=== PATIENT | male | born 1950 | race Caucasian/White ===

== ENCOUNTER 2024-05-24 16:57 | Emergency (ER) | payer MEDICARE, OTHER, SELFPAY ==
[2024-05-24 17:01] VITALS: BP 131/80
[2024-05-24 17:20] VITALS: BP 109/68
[2024-05-24 17:47] LABS: % Basophils 0.4 % (0-2); % Eosinophils 0.2 % (0-6); % Immature Granulocytes 0.7 % (0-0.5); % Lymphocytes 30.9 % (20.5-51.1); % Monocytes 5.5 % (1.7-9.3); % Neutrophils 62.3 % (42.2-75.2); Absolute Lymphocytes 1.7 10^3/uL (1.2-3.4); Absolute Monocytes 0.3 10^3/uL (0.1-0.6); Absolute Neutrophils 3.5 10^3/uL (1.4-6.5); Hematocrit 40.4 % (39.0-52.0); Hemoglobin 14.3 g/dL (13.0-18.0); Mean Corp Hgb Conc. 35.4 g/dL (33.0-37.0); Mean Corpuscular Hgb 37.1 pg (27.0-31.0); Mean Corpuscular Volume 104.9 fL (80.0-94.0); Nucleated Red Blood Cells % 0 % (-); Red Blood Cell Count 3.85 10^6/uL (4.70-6.10); Red Cell Dist. Width 13.2 % (11.5-14.5); White Blood Cell Count 5.6 10^3/uL (4.8-10.8)
[2024-05-24 17:54] LABS: ALT (SGPT) 44 U/L (0-50); AST (SGOT) 46 U/L (17-59); Alkaline Phosphatase 91 U/L (38-126); Blood Urea Nitrogen 15 mg/dl (9-20); Calcium 9.4 mg/dl (8.4-10.2); Carbon Dioxide 25 mmol/L (22-30); Chloride 104 mmol/L (98-107); Glucose 125 mg/dl (70-99); Potassium 4.3 mmol/L (3.5-5.1); Sodium 137 mmol/L (135-145); Total Bilirubin 0.6 mg/dl (0.2-1.3); Total Protein 6.9 g/dl (6.3-8.2); eGFR > 60.00
[2024-05-24 17:59] LABS: D-Dimer 0.67 ug/mlFEU (0.00-0.50)
[2024-05-24 18:17] LABS: COVID-19 Antigen Negative (Negative)
--- NOTE | 2024-05-24 18:21 | ED.GENMED ---
History of Present Illness
General
Chief Complaint: Breathing Problem
Time Seen by Provider: 05/24/24 17:17
History of Present Illness
History of Present Illness:
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 Patient reports that this morning. Notes mild dry cough. [place] known sick contacts. Denies fever. Denies associated chest pain. Denies abdominal pain or vomiting. Denies lower extremity swelling. Reports that he sometimes has dyspnea from time
to time, however not to this extent. He touch base with his doctors at [facility], who he follows for his AML, that he come to the hospital for further evaluation. Denies additional acute medical complaints
Past History
Past History
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
ED Past Surgical History: Orthopedic (Right knee surgery, bilateral rotator cuff repair), Tonsilectomy and Other (Cataract left)
Social History
Tobacco: Non-smoker
Alcohol: None
Drug: None
Living: with family
Phy Exam
Physical Exam
Physical Exam:
General: Well-appearing, no clinical signs of dehydration, nontoxic and in no acute distress
HEENT: protecting airway
Neck: appears supple
CV: Normal heart rate, regular rhythm, no evidence of cyanosis
Resp: No accessory muscle use, no increased work of breathing, lungs clear to auscultation bilaterally
Abd: Soft and non-distended, no tenderness to palpation, normal bowel sounds
Extremities: No deformities, no swelling, no erythema, pulses and sensation intact
Neuro: alert, no focal neurologic deficit
: deferred
Rectal: deferred
Psych: Normal affect
Skin: Intact
Scores
Heart Failure Risk
Heart Failure Risk Score: Not Applicable
Course
Orders/Labs/Results
Orders:
Orders
05/24/24 17:03
EKG [Electrocardiogram (*1)] Urgent
Reason for Study: Shortness of Breath
EKG- Treatment ONCE
05/24/24 17:23
CBC/With Diff [Complete Blood Count/With Diff] Urgent
CMP [Comprehensive Metabolic Panel] Urgent
05/24/24 17:39
COVID-19 Antigen Urgent
Source: Nasal Swab
D-Dimer Urgent
05/24/24 18:21
CT Chest Pe Study Urgent
Comment:
Reason For Exam: dyspnea, positive dimer
Abnormal Lab Results
05/24/24 05/24/24
17:23 17:39
RBC 3.85 L 10^6/uL
(4.70-6.10)
MCV 104.9 H fL
(80.0-94.0)
MCH 37.1 H pg
(27.0-31.0)
Plt Count 68 L 10^3/uL
(130-400)
MPV 10.9 H fL
(7.4-10.4)
Immature Gran % 0.7 H %
(0-0.5)
D-Dimer 0.67 H ug/mlFEU
(0.00-0.50)
Creatinine 0.6 L mg/dL
(0.7-1.3)
Glucose 125 H mg/dl
(70-99)
05/24/24 17:23
05/24/24 17:23
Vital Signs
Initial and Last Documented VS:
Initial Vital Signs
Temp Pulse Resp BP Pulse Ox
97.5 F 86 18 131/80 96
05/24/24 17:01 05/24/24 17:01 05/24/24 17:01 05/24/24 17:01 05/24/24 17:01
Last Documented Vital Signs
Temp Pulse Resp BP Pulse Ox
97.5 F 83 17 109/68 94
05/24/24 17:01 05/24/24 17:20 05/24/24 17:20 05/24/24 17:20 05/24/24 17:20
MDM/Problems Addressed
MDM/Problems Addressed:
74-year-old male with history of AML status post bone marrow transplant 04/2023 presenting for shortness of breath. Vital signs are normal.
On exam, patient well-appearing, no acute distress or discomfort. Benign cardiac and pulmonary exam. No focal abnormal lung sounds. No increased work of breathing. Unclear etiology to patient's symptoms, possible viral syndrome, notes that [place] Will test for COVID. Given patient's complicated history, will also screen with laboratory analysis and obtain chest x-ray imaging. Will also obtain a D-dimer, however no present hypoxia or tachycardia. EKG
nonischemic, patient without chest pain, without concern for ACS at this time.
20:45 -patient's labs are unremarkable. Slight elevation of D-dimer. CT chest was subsequently obtained, no evidence of PE, possible bronchitis. Patient is already on daily steroids which she just increased today. He is also on inhalers at home.
No signs of pneumonia. There is also evidence of chronic lung changes. Ambulatory pulse ox within normal limits. At this time suspect viral syndrome. Ultimately feel stable for discharge with continued outpatient follow-up. Strict return
precautions communicated and patient verbalized understanding
*EKG
Interpreted by ED Provider?: Yes
EKG Intrepretation Date: 05/24/24
EKG Intrepretation Time: 18:26
Interpretation: normal
Comparison EKG: no changes
Heart Rate: 83
Rate: normal
[place]: normal axis
Interval: normal interval
QRS Pattern: normal QRS
Ischemia: no ischemia
*Critical Care Note
Total Time (30-74mins, 75-104mins- exclusive of procedures): Not Applicable
ED Attending Note
-
Portions of this chart may have been created with voice recognition software.� Occasional wrong word or��sound alike� substitutions may have occurred due to the inherent limitations of voice recognition software.
Discharge Plan
Departure
Patient Disposition: Home (Routine Discharge)
Date of Disposition: 05/24/24
Time of Disposition: 20:50
Patient with high blood pressure during this ER visit?: No
Condition: Good
Discharge Problem:
Acute dyspnea, Bronchitis
Instructions: Acute bronchitis, Upper Respiratory Infection ED
Prescriptions:
No Action
multivitamin Tablet
1 tab PO DAILY@1000
acyclovir 800 mg tablet
800 mg PO BID@1000,2200
famotidine [Pepcid] 20 mg Tablet
20 mg PO DAILY@1000 Qty: 0
cyanocobalamin (vitamin B-12) [Vitamin B-12] 1,000 mcg Tablet
1,000 mcg PO HS
tamsulosin 0.4 mg capsule
0.4 mg PO HS
pravastatin 20 mg tablet
20 mg PO HS
pregabalin 100 mg capsule
200 mg PO BID@1000,2200
cholecalciferol (vitamin D3) [Vitamin D3] 25 mcg (1,000 unit) Tablet
25 mcg PO DAILY@1000
Xospata 40 mg Tablet
80 mg PO DAILY@1000
hydrocortisone 1 % Cream
1 applic TOPICAL DAILY
Rx Instructions:
apply to face
diclofenac sodium 1 % Gel
2 g TOPICAL QIDPRN PRN (Reason: hip pain)
DAPTOmycin [Cubicin] 1000 MG
Syringe [Syringe-Pump] 0 ML
As Directed mls/hr IV DAILY@1200
Ordered By: Concha Méndez MD, Resident
Last Taken: Unknown
Referrals:
Jama Falcon MD [Family Provider] -
Activity Restrictions/Additional Instructions:
You were seen in the emergency department for shortness of breath
You were found to have bronchitis
Please follow-up closely with your primary care physician.
Return to the emergency department for any worsening of your symptoms, or any development of chest pain, difficulty breathing, abdominal pain with persistent vomiting and inability to tolerate food or liquid by mouth (concern for dehydration),
weakness, headache or confusion, fever greater than 100.4, or any additional symptoms that are concerning to you.
Thank you for choosing [facility].
Interventions
Interventions:
*Risk Screen - Suicide Last Done: 05/24/24 21:21
*General Assessment Last Done: 05/24/24 21:21
*Neglect/Abuse Screening Last Done: 05/24/24 21:21
*Nursing Disposition Last Done: 05/24/24 21:23
ED- Cardiac Assessment Last Done: 05/24/24 21:21
ED- Pulmonary Assessment Last Done: 05/24/24 21:21
Discharge Date and Time
Discharge Date/Time: 05/24/24 21:24
Print Language: PORTUGUESE
[2024-05-24 18:32] LABS: Mean Platelet Volume 10.9 fL (7.4-10.4); Platelet Count 68 10^3/uL (130-400)
== END 2024-05-24 21:24 | disposition home or self-care (01) ==
LOC: EMR 16:57
PROVIDERS: EMERGENCY PHYSICIAN Student in an Organized Health Care Education/Training Program; FAMILY PHYSICIAN Family Medicine
DX: R06.00 Dyspnea, unspecified (principal); J40 Bronchitis, not specified as acute or chronic; I10 Essential (primary) hypertension; E78.00 Pure hypercholesterolemia, unspecified; C92.00 Acute myeloblastic leukemia, not having achieved remission; Z79.52 Long term (current) use of systemic steroids; Z94.81 Bone marrow transplant status
CPT/HCPCS: 99284; 71275; 80053; 85025; 85379; 87811; 93005; Q9967

== ENCOUNTER 2024-07-01 18:04 | Inpatient (IN) | payer MEDICARE, OTHER, SELFPAY ==
[2024-07-01 11:05] VITALS: BP 137/84
[2024-07-01 11:06] VITALS: BP 137/84
[2024-07-01 11:07] VITALS: BMI 37.7
--- NOTE | 2024-07-01 11:09 | ED.GENMED ---
History of Present Illness
General
Chief Complaint: Breathing Problem
Source: patient
Exam Limitations: none
Time Seen by Provider: 07/01/24 11:02
Nursing documentation reviewed up to this point in time: agreed with
History of Present Illness
History of Present Illness:
74-year-old male with past medical history of AML currently on Xospata, previous bone marrow transplant last year, anemia lung disease presenting to the emergency department today with concerns of worsening shortness of breath over the past few
days. Previously was able to walk moderate distances but now gets short of breath with any even small amount of movements and small amounts of exercise. He does not use oxygen at home denies chest pain nausea vomiting recent fevers has had some
coughing.
Past History
Past History
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
ED Past Surgical History: Orthopedic (Right knee surgery, bilateral rotator cuff repair), Tonsilectomy and Other (Cataract left)
Social History
Tobacco: Non-smoker
Alcohol: None
Drug: None
Living: with family
Review of Systems
Review of Systems
Allergies reviewed?: Yes
All Other Systems: ROS reviewed and negative except as documented in HPI and ROS
Phy Exam
Physical Exam
Physical Exam:
GENERAL: Alert , in no apparent distress
EYE: pupils equal and reactive
NECK: Supple, no significant adenopathy.
ENT: o/p clr, mmm.
CARDIAC: Regular rate and rhythm .
LUNGS: Clear breath sounds bilaterally, no acute respiratory distress, no wheezes/rales/rhonchi
ABDOMEN: Soft, without focal tenderness, no r/g, no cvat
NEUROLOGICAL: Alert and oriented, no focal neuro deficits
SKIN: Warm and dry, skin intact.
MUSCULOSKELETAL: No edema, well perfused.
PSYCH: Normal and appropriate interaction.
Scores
Heart Failure Risk
Heart Failure Risk Score: Not Applicable
Course
Orders/Labs/Results
Orders:
Orders
07/01/24 11:06
Electrocardiogram (*1) Urgent
Reason for Study: Other
Other Reason for Exam: Respiratory Distress
Cardiac Monitoring- Treatment ONCE
EKG- Treatment ONCE
IV Insert/Care/Rem.- Treatment PRN
O2 Therapy [RESP] Urgent
Titrate/Wean O2 to maintain O2 sat greater than (%): 93
Special Instructions: TO MAINTAIN CONTINUOUS O2 SATS >/= 93%
Pulse Ox/cont/shift [RESP] Urgent
Quantity: 1
Special Instructions: continuous pulse ox
07/01/24 11:09
Cardiac Monitoring- Treatment ONCE
07/01/24 11:10
CT Chest Pe Study Urgent
Comment:
Reason For Exam: sob
07/01/24 11:15
Complete Blood Count/With Diff Urgent
Comprehensive Metabolic Panel Urgent
Lactic Acid Q4H
Comment: CANCEL 2nd LACTIC ACID IF 1st LACTIC ACID IS LESS THAN 2
NT-proBNP Urgent
Troponin I Urgent
07/01/24 14:24
Azithromycin 500 mg/250 ml [Zithromax Infusion] 500 mg in 250 ml IV NOW
CefTRIAXone [Rocephin] 2,000 mg IV NOW STA
07/01/24 14:27
Dexamethasone Sod Phosphate [Decadron] 10 mg IV NOW STA
07/01/24 14:29
COVID-19 Antigen Urgent
Source: Nasal Swab
Abnormal Lab Results
07/01/24
11:15
RBC 4.22 L 10^6/uL
(4.70-6.10)
MCV 107.6 H fL
(80.0-94.0)
MCH 37.2 H pg
(27.0-31.0)
Plt Count 52 L 10^3/uL
(130-400)
MPV 10.7 H fL
(7.4-10.4)
Abs Immat Gran (auto) 0.1 H 10^3/uL
(0-0.05)
Absolute Monos (auto) 1.4 H 10^3/uL
(0.1-0.6)
Immature Gran % 0.8 H %
(0-0.5)
Monocytes % 14.7 H %
(1.7-9.3)
Carbon Dioxide 31 H mmol/L
(22-30)
Glucose 136 H mg/dl
(70-99)
Total Bilirubin 1.4 H mg/dl
(0.2-1.3)
ALT 95 H U/L
(0-50)
Troponin I 0.047 H* ng/ml
07/01/24 11:15
07/01/24 11:15
Vital Signs
Initial and Last Documented VS:
Initial Vital Signs
Pulse Ox
92
07/01/24 11:04
Last Documented Vital Signs
Temp Pulse Resp BP Pulse Ox
98.8 F 99 28 124/84 97
07/01/24 11:06 07/01/24 13:30 07/01/24 13:30 07/01/24 12:44 07/01/24 13:30
MDM/Problems Addressed
MDM/Problems Addressed:
74-year-old male presenting to the emergency department today with concerns of shortness of breath worsening over the past few days. Very minimal exercise tolerance at this point. Pulse ox at home was in the 80s when EMS arrived. He does not use
oxygen at baseline. Upon arrival here he was tachycardic pulse ox in the low 90s with 2 L nasal cannula. Labs showing elevated troponin level of 0.047. EKG without obvious ischemic changes or arrhythmia. CT scan showing potential pneumonitis
infectious versus drug-related most likely. Patient started on antibiotics and otherwise will be admitted consider hypoxia and decreased exercise tolerance here.
*Critical Care Note
Total Time (30-74mins, 75-104mins- exclusive of procedures): Not Applicable
ED Attending Note
-
Portions of this chart may have been created with voice recognition software.� Occasional wrong word or��sound alike� substitutions may have occurred due to the inherent limitations of voice recognition software.
Discharge Plan
Departure
Patient Disposition: Admit
Date of Disposition: 07/01/24
Time of Disposition: 14:53
Admit to: Telemetry
Admit to doctor: Marina montes
Presentation/result/management discussed w/ accepting MD/DO: Hospitalist
Patient with high blood pressure during this ER visit?: No
Condition: Good
Covid-19: Not Applicable
Discharge Problem:
Hypoxia, Pneumonitis, Elevated troponin
Prescriptions:
No Action
multivitamin Tablet
1 tab PO DAILY@1000
acyclovir 800 mg tablet
800 mg PO BID@1000,2200
famotidine [Pepcid] 20 mg Tablet
20 mg PO DAILY@1000 Qty: 0
cyanocobalamin (vitamin B-12) [Vitamin B-12] 1,000 mcg Tablet
1,000 mcg PO HS
tamsulosin 0.4 mg capsule
0.4 mg PO HS
pravastatin 20 mg tablet
20 mg PO HS
pregabalin 100 mg capsule
200 mg PO BID@1000,2200
cholecalciferol (vitamin D3) [Vitamin D3] 25 mcg (1,000 unit) Tablet
25 mcg PO DAILY@1000
Xospata 40 mg Tablet
80 mg PO DAILY@1000
hydrocortisone 1 % Cream
1 applic TOPICAL DAILY
Rx Instructions:
apply to face
diclofenac sodium 1 % Gel
2 g TOPICAL QIDPRN PRN (Reason: hip pain)
DAPTOmycin [Cubicin] 1000 MG
Syringe [Syringe-Pump] 0 ML
As Directed mls/hr IV DAILY@1200
Ordered By: Concha Méndez MD, Resident
Last Taken: Unknown
Referrals:
UNKNOWN - PT DOES,NOT KNOW [Family Provider] -
Interventions
Interventions:
*Risk Screen - Suicide Last Done: 07/01/24 11:09
*General Assessment Last Done: 07/01/24 11:09
*Neglect/Abuse Screening Last Done: 07/01/24 11:09
ED- Fall Risk Assessment Last Done: 07/01/24 11:10
*ED COVID-19 Vaccine History Last Done: 07/01/24 11:09
ED- Cardiac Assessment Last Done: 07/01/24 11:10
ED- Pulmonary Assessment Last Done: 07/01/24 11:10
Discharge Date and Time
Print Language: ALBANIAN
[2024-07-01 11:42] LABS: Lactic Acid 1.3 mmol/L (0.7-2.0)
[2024-07-01 11:43] LABS: ALT (SGPT) 95 U/L (0-50); AST (SGOT) 47 U/L (17-59); Albumin 4.4 g/dl (3.5-5.0); Alkaline Phosphatase 114 U/L (38-126); Blood Urea Nitrogen 19 mg/dl (9-20); Calcium 9.8 mg/dl (8.4-10.2); Carbon Dioxide 31 mmol/L (22-30); Chloride 100 mmol/L (98-107); Estimated Creatinine Clearance 78 ml/min; Glucose 136 mg/dl (70-99); Potassium 4.4 mmol/L (3.5-5.1); Sodium 142 mmol/L (135-145); Total Bilirubin 1.4 mg/dl (0.2-1.3); Total Protein 7.2 g/dl (6.3-8.2); eGFR > 60.00
[2024-07-01 11:47] LABS: % Basophils 0.4 % (0-2); % Eosinophils 0.8 % (0-6); % Immature Granulocytes 0.8 % (0-0.5); % Lymphocytes 23.7 % (20.5-51.1); % Monocytes 14.7 % (1.7-9.3); % Neutrophils 59.6 % (42.2-75.2); Absolute Eosinophils 0.1 10^3/uL (0-0.7); Absolute Immature Granulocytes 0.1 10^3/uL (0-0.05); Absolute Lymphocytes 2.2 10^3/uL (1.2-3.4); Absolute Monocytes 1.4 10^3/uL (0.1-0.6); Absolute Neutrophils 5.6 10^3/uL (1.4-6.5); Hematocrit 45.4 % (39.0-52.0); Hemoglobin 15.7 g/dL (13.0-18.0); Mean Corp Hgb Conc. 34.6 g/dL (33.0-37.0); Mean Corpuscular Hgb 37.2 pg (27.0-31.0); Mean Corpuscular Volume 107.6 fL (80.0-94.0); Mean Platelet Volume 10.7 fL (7.4-10.4); Nucleated Red Blood Cells % 0 % (-); Platelet Count 52 10^3/uL (130-400); Red Blood Cell Count 4.22 10^6/uL (4.70-6.10); Red Cell Dist. Width 13.7 % (11.5-14.5); White Blood Cell Count 9.3 10^3/uL (4.8-10.8)
[2024-07-01 11:58] LABS: NT-proBNP 407 pg/ml; Troponin I 0.047 ng/ml
[2024-07-01 12:32] VITALS: BP 106/78
[2024-07-01 12:44] VITALS: BP 124/84
[2024-07-01] MEDS: DECADRON 10 MG IV (14:35)
[2024-07-01] MEDS: ROCEPHIN 2000 MG IV (14:35)
[2024-07-01] MEDS: ZITHROMAX INFUSION 250 IV (14:35)
[2024-07-01 15:18] LABS: COVID-19 Antigen Negative (Negative)
--- NOTE | 2024-07-01 15:41 | HPS.HSE ---
Family Physician
-
Family Physician: NOT KNOW UNKNOWN - PT DOES
Chief Complaint
-
sob
History of Present Illness
74 male AML status post bone marrow transplant chronic qrixt-[id number]-[id number] disease hypertension hyperlipidemia asbestosis presents with shortness of breath progressive for the past few days. Denies fevers chills nausea vomiting constipation had an
episode of diarrhea few days ago since resolved. Reports productive cough denies hemoptysis. ED eval notable for hypoxia requiring 3 L tachypnea sinus tachycardia. Blood pressure stable no lactic acidosis. CT chest suggestive of pneumonitis
known asbestosis coronary artery calcifications. Negative for PE. History of thrombocytopenia platelets stable appears baseline. Troponin elevated 0.047 chest pain-free. BNP unremarkable. Denies orthopnea, reports lying flat actually helps
symptoms.
Medical History
Past Medical History
Past Medical History: Reports Other (as above)
Past Surgical History: Reports Other (as above)
Social History
Tobacco: Non-smoker
Alcohol: None
Drug: None
Personal:
Living: With Family
Employment: Retired
Family History
Family History: Not pertinent (reviewed)
Allergies / Home Medications
Allergies reflects when Allergies were last updated in [employer].
Home Medications with original date entered in [employer]
Allergy/Medication List:
Allergies
Allergy/AdvReac Type Severity Reaction Status Date / Time
No Known Allergies Allergy Verified 07/01/24 11:13
Home Medications
acyclovir 800 mg tablet 800 mg PO BID@1000,2200 prophylaxis 11/17/22
famotidine 20 mg tablet (Pepcid) 20 mg PO BID Gastrointestinal issue ##0 11/17/22
multivitamin 1 tab PO DAILY@1000 Supplement 11/17/22
cholecalciferol (vitamin D3) 25 mcg (1,000 unit) tablet (Vitamin D3) 25 mcg PO DAILY@1000 Supplement 04/29/23
cyanocobalamin (vitamin B-12) 1,000 mcg tablet (Vitamin B-12) 1,000 mcg PO MOWEFR Supplement 04/29/23
pravastatin 20 mg tablet 20 mg PO HS High Cholesterol 04/29/23
tamsulosin 0.4 mg capsule 0.4 mg PO HS Urinary Issue 04/29/23
diclofenac sodium 1 % topical gel 2 g topical QIDPRN PRN hip pain 10/18/23
gilteritinib 40 mg tablet (Xospata) 80 mg PO DAILY@1000 Autoimmune Disorder 10/18/23
albuterol sulfate 90 mcg/actuation aerosol inhaler 1 puff inhalation 4-8XD 07/01/24
ascorbic acid (vitamin C) 1,000 mg tablet 1,000 mg PO HS 07/01/24
belumosudil 200 mg tablet (Rezurock) 200 mg PO DAILY 07/01/24
benzonatate 100 mg capsule 100 mg PO Q6HPRN PRN cough 07/01/24
budesonide-formoterol HFA 160 mcg-4.5 mcg/actuation aerosol inhaler 2 puff inhalation R Q12 07/01/24
erythromycin 5 mg/gram (0.5 %) eye ointment 1 applic BOTH EYES HS 07/01/24
metformin 500 mg tablet 500 mg PO BIDWMEAL 07/01/24
olopatadine 0.2 % eye drops 1 drp BOTH EYES DAILY 07/01/24
prednisone 5 mg tablet 15 mg PO HS 07/01/24
pregabalin 200 mg capsule 200 mg PO Q12H 07/01/24
ruxolitinib 5 mg tablet (Jakafi) 5 mg PO BID 07/01/24
sulfamethoxazole 800 mg-trimethoprim 160 mg tablet 1 tab PO MOWEFR 07/01/24
tacrolimus 0.1 % topical ointment 1 applic topical Q12H 07/01/24
Review of Systems
-
A 12 point ROS was completed and negative except as noted: Yes
Constitutional: Reports Sleep Disturbance (as below)
Physical Exam
Vital Signs
Vital Signs
Temp Pulse Resp BP Pulse Ox
98.8 F 109 29 124/84 96
07/01/24 11:06 07/01/24 15:30 07/01/24 15:30 07/01/24 12:44 07/01/24 15:30
Physical Exam
General: Other (as below)
Laboratory Results
-
07/01/24 11:15
07/01/24 11:15
Laboratory Results
Lactic Acid Cancelled 07/01/24 15:15
Total Bilirubin 1.4 mg/dl (0.2-1.3) H 07/01/24 11:15
AST 47 U/L (17-59) 07/01/24 11:15
ALT 95 U/L (0-50) H 07/01/24 11:15
Alkaline Phosphatase 114 U/L (38-126) 07/01/24 11:15
Troponin I 0.047 ng/ml H* 07/01/24 11:15
Impression/Plan
-
ROS
General: Denies fever chills unexpected weight loss reports sweating
Neuro: Denies seizure shaking loss of consciousness dizziness vertigo
Psych: denies depression hallucinations confusion manic episodes
Endocrine: Denies polyuria polydipsia polyphagia heat/cold intolerance
HEENT: Denies blindness visual disturbances epistaxis
Pulmonary: reports coughing sob denies hemoptysis
Cardiovascular: denies chest pain palpitations leg swelling orthopnea (reports breathing improves with lying flat)
Hematology: denies signs symptoms of anemia easy bruising/bleeding
Gastrointestinal: reports diarrhea a few days ago non-bloody denies nausea vomiting constipation hematemesis hematochezia melena
Genito-Urinary: denies retention incontinence dysuria
Musculoskeletal: denies joint pain weakness
Dermatology: denies rash laceration bruising
Physical Exam
General: No pallor, cyanosis, or jaundice. obese
HEENT: Throat clear. PERRLA Normocephalic atraumatic
NECK: Supple. No JVD Carotid Bruits
RESPIRATORY: Lungs clear to auscultation. crackles on auscultation
CVS: Sinus Tachy
ABDOMEN: Soft, non-tender. No distension. BS+/normal.
EXTREMITIES: No peripheral cyanosis or edema.
CONE TENDER: AOx3. No focal deficits.
IMPRESSION:
74 male AML status post bone marrow transplant chronic jgvxr-[id number]-yjpc disease hypertension hyperlipidemia asbestosis presents with shortness of breath progressive for the past few days. Denies fevers chills nausea vomiting constipation had an
episode of diarrhea few days ago since resolved. Reports productive cough denies hemoptysis. ED eval notable for hypoxia requiring 3 L tachypnea sinus tachycardia. Blood pressure stable no lactic acidosis. CT chest suggestive of pneumonitis
known asbestosis coronary artery calcifications. Negative for PE. History of thrombocytopenia platelets stable appears baseline. Troponin elevated 0.047 chest pain-free. BNP unremarkable. Denies orthopnea, reports lying flat actually helps
symptoms.
PLAN:
#Sepsis pneumonia versus pneumonitis
#Asbestosis/pulmonary fibrosis
Telemetry admit
Blood cultures
Sputum culture as possible
Continue ceftriaxone azithromycin
Monitor for fever
Trend WBC
Home prednisone on hold for IV steroids
Decadron 4 mg IV every 6, low-dose sliding scale while on increased steroids, follow-up A1c, continue home metformin
O2 supplementation as necessary maintain saturation 92% or above
Xopenex scheduled and as needed avoiding albuterol due to tachycardia
Continue home Symbicort
Pulm ID eval
#hx Thrombocytopenia
Baseline
Continue to monitor
#AML status post bone marrow transplant
#Qtbsu-munzwz-eyls disease
In the process of obtaining Xospata has not received yet
Continue home medication Rezurock Jakafi
Continue prophylaxis Bactrim acyclovir
DVT prophylaxis SCDs
GI prophylaxis continue home Pepcid twice daily
DNR as per patient
I spent a total of 80 minutes with the patient or on the floor. More than 50% of this time involved counseling and coordination of care.
[2024-07-01 19:49] VITALS: BP 126/83; BMI 37.2
--- NOTE | 2024-07-01 19:57 | PTCARENOTE ---
Pt arrived to floor from ED via stretcher. Ambulated into bed with minimal assistance. Pt was very dyspnea on exertion also is on 2L of oxygen. PT was recovered well after rest. PT is AAOx3, VVS , oriented pt to room call whitaker within reach.
[2024-07-01 21:37] LABS: Glucose - Point of Care 191 mg/dl (70-99)
[2024-07-01] MEDS: SYMBICORT 160/4.5 MCG INHALER INH (22:28)
[2024-07-01] MEDS: XOPENEX 0.63 MG INHALANT SOLUTION INH (22:28)
[2024-07-02] VITALS (8 sets, daily range): BP systolic 100–129; BP diastolic 77–83; PULSE 97–98; O2SAT 96–97; BMI 36.7
[2024-07-02] MEDS: MUCINEX 600 MG PO ×3 (00:16→20:42)
[2024-07-02] MEDS: PEPCID 20 MG PO ×3 (00:17→20:42)
[2024-07-02] MEDS: DECADRON 4 MG IV ×5 (00:19→21:28)
[2024-07-02] MEDS: ERYTHROMYCIN 0.5% OPHTHALMIC OINTMENT 1 APPLIC BOTH EYES ×2 (00:19→21:28)
[2024-07-02] MEDS: FLOMAX 0.4 MG PO ×2 (00:22→21:28)
[2024-07-02] MEDS: PRAVACHOL 20 MG PO ×2 (00:23→21:30)
[2024-07-02] MEDS: ZOVIRAX 800 MG PO ×3 (00:24→21:30)
[2024-07-02] MEDS: NON-FORMULARY ITEM 80 MG PO ×2 (00:25→10:15)
[2024-07-02] MEDS: NON-FORMULARY ITEM 5 MG PO ×3 (00:26→20:43)
[2024-07-02] MEDS: LYRICA 200 MG PO ×3 (00:33→20:41)
[2024-07-02] MEDS: VITAMIN C 1000 MG PO ×2 (00:34→21:29)
--- NOTE | 2024-07-02 03:42 | PTCARENOTE ---
Pt also arrived to the unit very diaphoretic and continues to be very diaphoretic throughout the night. Rectal temp was taken on arrival temp was 99.6.
--- NOTE | 2024-07-02 04:28 | PTCARENOTE ---
Pt aaox3, cooperative. denies sob or dizziness. NSR on monitor with PACs. diaphoretic. afebrile. ekg order obtained. NSR/ sinus arrhythmia. Pt states 'I feel better than when I came in.' Call whitaker within reach.
[2024-07-02 06:46] LABS: Hemoglobin 13.9 g/dL (13.0-18.0); Mean Corp Hgb Conc. 35.6 g/dL (33.0-37.0); Mean Corpuscular Hgb 37.7 pg (27.0-31.0); Mean Corpuscular Volume 105.7 fL (80.0-94.0); Mean Platelet Volume 11.3 fL (7.4-10.4); Platelet Count 49 10^3/uL (130-400); Red Blood Cell Count 3.69 10^6/uL (4.70-6.10); Red Cell Dist. Width 13.3 % (11.5-14.5); White Blood Cell Count 5.5 10^3/uL (4.8-10.8)
[2024-07-02 06:54] LABS: ALT (SGPT) 68 U/L (0-50); AST (SGOT) 37 U/L (17-59); Albumin 3.8 g/dl (3.5-5.0); Alkaline Phosphatase 93 U/L (38-126); Blood Urea Nitrogen 24 mg/dl (9-20); Calcium 9.4 mg/dl (8.4-10.2); Carbon Dioxide 24 mmol/L (22-30); Chloride 106 mmol/L (98-107); Estimated Creatinine Clearance 109 ml/min; Glucose 178 mg/dl (70-99); Magnesium 2.4 mg/dl (1.6-2.3); Potassium 4.3 mmol/L (3.5-5.1); Sodium 140 mmol/L (135-145); Total Bilirubin 0.9 mg/dl (0.2-1.3); Total Protein 6.5 g/dl (6.3-8.2); eGFR > 60.00
--- NOTE | 2024-07-02 07:35 | W.PN.HOSP.TC ---
Today's Communication/Plan
-
cont steroids
empiric abx
bronchodilators
glycemic control
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
Assessment / Plan
Assessment / Plan
Physical Exam
General: No pallor, cyanosis, or jaundice. obese
HEENT: Throat clear. PERRLA Normocephalic atraumatic
NECK: Supple. No JVD Carotid Bruits
RESPIRATORY: Lungs clear to auscultation. crackles on auscultation
CVS: Sinus Tachy
ABDOMEN: Soft, non-tender. No distension. BS+/normal.
EXTREMITIES: No peripheral cyanosis or edema.
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 No focal deficits.
IMPRESSION:
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 Denies fevers chills nausea vomiting constipation had an
episode of diarrhea few days ago since resolved. Reports productive cough denies hemoptysis. ED eval notable for hypoxia requiring 3 L tachypnea sinus tachycardia. Blood pressure stable no lactic acidosis. CT chest suggestive of pneumonitis
known asbestosis coronary artery calcifications. Negative for PE. History of thrombocytopenia platelets stable appears baseline. Troponin elevated 0.047 chest pain-free. BNP unremarkable. Denies orthopnea, reports lying flat actually helps
symptoms.
PLAN:
#Sepsis pneumonia versus pneumonitis
#Asbestosis/pulmonary fibrosis
Telemetry admit
Blood cultures
Sputum culture as possible
Continue ceftriaxone azithromycin
Monitor for fever
Trend WBC
Home prednisone on hold for IV steroids
Decadron 4 mg IV every 6
O2 supplementation as necessary maintain saturation 92% or above
Xopenex scheduled and as needed avoiding albuterol due to tachycardia
Continue home Symbicort
Pulm ID eval
DM though borderline
likely steroid induced
A1c 6.6
low dose sliding advanced to moderate anglin
cont Metformin
Troponin elevation likely non-PR related
coronary artery calcifications noted on CT
diaphoretic overnight since resolved
Troponin peaked 0.047 since trended down
ECHO preserved EF 65% no significant change from Oct 2023
Cardio eval appreciated
empiric aspirin discontinued
#hx Thrombocytopenia
Baseline
Continue to monitor
#AML status post bone marrow transplant
#Kihyx-mdalxl-vjry disease
[correction to prior documentation] cont Xospata
Continue home medication Rezurock Jakafi
Continue prophylaxis Bactrim acyclovir
DVT prophylaxis SCDs
GI prophylaxis continue home Pepcid twice daily
DNR as per patient
I spent a total of 50 minutes with the patient or on the floor. More than 50% of this time involved counseling and coordination of care.
Anticipated Discharge: 24 - 48 hours
Subjective/Interval History
-
Date of Service: July 02, 2024
No acute distress. Diaphoretic overnight since resolved. Denies Chest Pain.
Objective Data
-
Labs:
Laboratory Results
07/02/24
05:53
WBC 5.5
Hgb 13.9
Hct 39.0
Plt Count 49 L
Sodium 140
Potassium 4.3
Chloride 106
Carbon Dioxide 24
BUN 24 H
Creatinine 0.7
Glucose 178 H
Calcium 9.4
Total Bilirubin 0.9
AST 37
ALT 68 H
Alkaline Phosphatase 93
Vital Signs:
Vital Signs
Temp Pulse Resp BP Pulse Ox
97.5 F 84 18 100/77 96
07/02/24 03:36 07/02/24 03:15 07/02/24 03:15 07/02/24 03:15 07/02/24 03:15
[2024-07-02] MEDS: SYMBICORT 160/4.5 MCG INHALER 2 PUFF INH ×2 (07:48→19:41)
[2024-07-02] MEDS: XOPENEX 0.63 MG INHALANT SOLUTION INH ×3 (07:48→19:41)
[2024-07-02 09:36] LABS: Glucose - Point of Care 254 mg/dl (70-99)
[2024-07-02] MEDS: ASPIRIN 325 MG PO (09:36)
[2024-07-02] MEDS: NON-FORMULARY ITEM 200 MG PO (09:36)
[2024-07-02] MEDS: GLUCOPHAGE 500 MG PO ×2 (09:38→16:50)
[2024-07-02] MEDS: BACTRIM DS 800 MG/160 MG 1 TABLET PO (09:39)
[2024-07-02] MEDS: VITAMIN D3 (cholecalciferol) 25 MCG PO (09:39)
[2024-07-02] MEDS: ZITHROMAX 250 MG PO (09:40)
[2024-07-02] MEDS: VITAMIN B-12 1000 MCG PO (09:43)
[2024-07-02] MEDS: NOVOLOG FLEXPEN-LOW RESISTANCE 3 UNITS SC (09:58)
[2024-07-02] MEDS: THERAGRAN 1 TABLET PO (10:14)
--- NOTE | 2024-07-02 10:16 | CON.CAR ---
Addendum entered and electronically signed by Armen Wolf MD 07/02/24 14:11:
I saw and examined the patient.
The CLIENT ADMINISTRATOR or PA's note was reviewed and I agree with the note.
Comment: General: Well developed, well nourished in NAD.
Neck: Supple, no JVD, HJR, carotids +2 B/L, no bruits bilaterally.
Heart: Non displaced PMI, RRR, no murmurs, No S3, S4, no rubs.
Lungs: Scattered rhonchi
Abdomen: Normal bowel sounds, soft, non-tender, non-distended.
Extremities: No clubbing, cyanosis or edema bilaterally.
Neuro: Grossly nonfocal, awake, alert and oriented x3.
Jian has a history of hypertension, hyperlipidemia, AML status post bone marrow transplant with chronic rminv-qcbxrt-ptoh disease followed at [facility], asbestosis. He presented with worsening dyspnea on exertion and cough. He has been treated for
pneumonia and has improved. Cardiology is consulted for elevated troponin and coronary calcifications. He denies any chest pain or shortness of breath at present.
Suspect troponin elevation is nonischemic myocardial injury. Will check echocardiogram. As far as coronary calcifications that is likely a nonspecific finding at his age. Will continue statin therapy. Will check cholesterol with goal of LDL less
than 70. Will check hemoglobin A1c with elevated blood sugar. Could consider outpatient stress testing if develops chest pain or shortness of breath.
Original Note:
Consultation
Consultation Request
Date/Time Consultation Requested: 07/02/24 1830
Date/Time Consultation Performed: 07/02/24, 1020
Requesting Provider: Puneet White MD
Performing Provider: CM Lowery/Xavier Wolf MD
Reason for Consultation: troponin elevation, diaphoresis, Ca calcification, chest pain free
Medical History
-
Chief Complaint: shortness of breath
History of Present Illness:
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 On the
day of admission he was short of breath at rest with orthopnea. When he first began experiencing shortness of breath 4 days ago, he contacted his care team at [facility] and was started on Bactrim and an antifungal. He tells me the antifungal
was not available so he did not start it. Prior to 4 days ago, he was participating in PT following spinal surgery 03/30 and had been able to bike for a mile, walk 1/4 mile, and do strengthening exercising with minimal dyspnea on exertion.
He has no chest pain, palpitations, lightheadedness, syncope, edema, fevers, chills, nausea vomiting, diarrhea. c/o head feeling sweaty.
In ER troponin initially elevated but trending down: 0.047--0.040--0.030. Cardiology consulted for abnormal troponin and EKG, coronary calcification on CT scan, diaphoresis.
PMH:
AML s/p bone marrow transplant
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
HTN
hyperlipidemia
asbestosis
lumbar spine surgery 03/28/24
elevated glucose-on Metformin
thrombocytopenia
Past Medical History
Past Medical History: Other (in HPI)
Past Surgical History: Orthopedic (lumbar spine surgery 03/28/24)
Social History
Tobacco: Non-Smoker
Alcohol: None
Drug: None
Personal:
Living: With Family
Family History
Family History: Reviewed & Not Pertinent
Allergies / Home Medications
Allergy/AdvReac Type Severity Reaction Status Date / Time
No Known Allergies Allergy Verified 07/01/24 11:13
�Medication �Instructions �Recorded �Confirmed �Type
acyclovir 800 mg tablet 800 mg PO BID@1000,2200 prophylaxis 11/17/22 07/01/24 History
famotidine 20 mg tablet (Pepcid) 20 mg PO BID Gastrointestinal 11/17/22 07/01/24 History
issue ##0
multivitamin 1 tab PO DAILY@1000 Supplement 11/17/22 07/01/24 History
cholecalciferol (vitamin D3) 25 25 mcg PO DAILY@1000 Supplement 04/29/23 07/01/24 History
mcg (1,000 unit) tablet (Vitamin
D3)
cyanocobalamin (vitamin B-12) 1,000 mcg PO MOWEFR Supplement 04/29/23 07/01/24 History
1,000 mcg tablet (Vitamin B-12)
pravastatin 20 mg tablet 20 mg PO HS High Cholesterol 04/29/23 07/01/24 History
tamsulosin 0.4 mg capsule 0.4 mg PO HS Urinary Issue 04/29/23 07/01/24 History
diclofenac sodium 1 % topical gel 2 g topical QIDPRN PRN hip pain 10/18/23 07/01/24 History
gilteritinib 40 mg tablet (Xospata) 80 mg PO DAILY@1000 Autoimmune 10/18/23 07/01/24 History
Disorder
albuterol sulfate 90 mcg/actuation 1 puff inhalation 4-8XD 07/01/24 07/01/24 History
aerosol inhaler
ascorbic acid (vitamin C) 1,000 mg 1,000 mg PO HS 07/01/24 07/01/24 History
tablet
belumosudil 200 mg tablet 200 mg PO DAILY 07/01/24 07/01/24 History
(Rezurock)
benzonatate 100 mg capsule 100 mg PO Q6HPRN PRN cough 07/01/24 07/01/24 History
budesonide-formoterol HFA 160 2 puff inhalation R Q12 07/01/24 07/01/24 History
mcg-4.5 mcg/actuation aerosol
inhaler
erythromycin 5 mg/gram (0.5 %) eye 1 applic BOTH EYES HS 07/01/24 07/01/24 History
ointment
metformin 500 mg tablet 500 mg PO BIDWMEAL 07/01/24 07/01/24 History
olopatadine 0.2 % eye drops 1 drp BOTH EYES DAILY 07/01/24 07/01/24 History
prednisone 5 mg tablet 15 mg PO HS 07/01/24 07/01/24 History
pregabalin 200 mg capsule 200 mg PO Q12H 07/01/24 07/01/24 History
ruxolitinib 5 mg tablet (Jakafi) 5 mg PO BID 07/01/24 07/01/24 History
sulfamethoxazole 800 1 tab PO MOWEFR 07/01/24 07/01/24 History
mg-trimethoprim 160 mg tablet
tacrolimus 0.1 % topical ointment 1 applic topical Q12H 07/01/24 07/01/24 History
Review of Systems
-
History Source: Patient
All other systems: Negative unless noted
Physical Exam
Vital Signs
Temp Pulse Resp BP Pulse Ox
97.5 F 80 20 100/77 94
07/02/24 03:36 07/02/24 07:51 07/02/24 07:51 07/02/24 03:15 07/02/24 07:51
GEN: SOB after walking from bathroom, awake, Ox3
HEENT: supple, anicteric, no carotid bruit, no JVD
LUNGS: scattered crackles
CV: Reg, S1/S2, no murmur
ABD: soft, BS+, NT/ND
EXT: No edema
NEURO: Gross non-focal
SKIN: No rash
Lab Results
07/02/24 05:53
07/02/24 05:53
Troponin I 0.030 ng/ml 07/01/24 22:51
Buf-Y-Tkxkpaecezf Pept 407 pg/ml 07/01/24 11:15
Impression / Plan
-
PCP: [facility], old PCP retired and has not established care with new provider. Follows at [facility] for most of his medical diagnoses
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
Impression:
admitted with shortness of breath and cough 07/01/24
acute hypoxic respiratory insufficiency
possible sepsis
possible pneumonitis vs pneumonia
elevated troponin initially 0.047 and trending down
abnormal EKG
coronary calcification on chest CT
elevated glucose-on Metformin
thrombocytopenia
AML s/p bone marrow transplant
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
HTN
hyperlipidemia
asbestosis
lumbar spine surgery 03/28/24
ECHO 10/20/23: nl LV size and fxn, EF 60-65%, mild cLVH, no significant valvular heart disease
Plan:
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 On the
day of admission he was short of breath at rest with orthopnea. When he first began experiencing shortness of breath 4 days ago, he contacted his care team at [facility] and was started on Bactrim and an antifungal. He tells me the antifungal
was not available so he did not start it. Prior to 4 days ago, he was participating in PT following spinal surgery 03/30 and had been able to bike for a mile, walk 1/4 mile, and do strengthening exercising with minimal dyspnea on exertion.
He has no chest pain, palpitations, lightheadedness, syncope, edema, fevers, chills, nausea vomiting, diarrhea. c/o head feeling sweaty.
In ER troponin initially elevated but trending down: 0.047--0.040--0.030. Cardiology consulted for abnormal troponin and EKG, coronary calcification on CT scan, diaphoresis.
EKG 07/01/24 1106 reviewed by me: Sinus tachycardia, low voltage, nonspecific T wave abnormality
EKG 07/02/24 0412 reviewed by me: NSR with sinus arrhythmia, pacs, questionable ST changes V3-V4
-Pt without chest pain and troponin trending down. Would repeat EKG now given EKG possible ST changes, ordered by me. Check ECHO.
He has no known history of CAD, and was found to have coronary calcification on CT scan. Rec: risk factor modification with statin, BP control. Can check FLP, HgbA1c, ordered by me.
BNP 407. Does not appear volume overloaded on exam. If SOB not improving with abx, could consider low dose diuretic.
Chest CT/PE study: report reviewed by me: negative PE, new patchy airspace and groundglass opacities B/L - new compared to 05/24/24, suggestive of pneumonitis, B/L calcified pleural plaques -stable, likely from asbestos exposure, chronic peripheral
increased interstitial markings in both lungs, compatible with mild interstitial fibrosis, coronary artery calcifications present.
Sepsis workup in progress - blood and sputum cultures pending
influenza A/B negative
[2024-07-02 10:27] LABS: Glycohemoglobin (HgbA1c) 6.6 % (4.0-5.6)
--- NOTE | 2024-07-02 11:10 | CM ---
Met with pt at bedside
Reports he lives with his in a 1 story condo, no steps to enter
Retired, active, driving
DME - cane, rolling walker, glucometer
SNF - denies past hx
HH - Henrik in past
Has ride at discharge
PCP - Trino Bolivar
Pharm - [employer]
CM will follow for discharge needs
Plan - anticipate home no needs
--- NOTE | 2024-07-02 11:21 | CON.ID ---
Addendum entered and electronically signed by Chantal Tomlinson MD 07/02/24 16:01:
I personally performed a history and physical exam of the patient and discussed management with the resident. I reviewed the resident's note and agree with most of the documented findings and plan of care HPI/CC.
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 Developed progressive
SOB since 06/26/24 without cough, fever, or chills. 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
06/29/24, PFT was 'not good'. Of note, pt has been off PJP and antifungal prophylaxis x 6 months. On 06/28, his transplant team re-prescribed T/sulfa DS MWF and posaconazole. He had one dose of T/sulfa on 06/29. He presented with severe SOB,
hypoxic, CT chest, patchy airspace, ground glass opacities.
# Pneumonitis
- SOB and acute hypoxia responded well and quickly to high dose steroid. Ambulated today without oxygen requirement.
- Suspect pneumonitis, possibly from GVHD flare and/or bronchiolitis obliterans
- Although he was off PJP ppx x 6 months, doubt PJP pneumonitis as hypoxia resolved without PJP treatment.
- Can continue empiric CAP tx for now. At time of discharge, can transition to cefdinir 300mg po bid and azithromycin 250mg po qd through 07/05/24.
- Close follow-up with transplant team at [facility].
Original Note:
Consultation
-
Date/Time Consultation Requested: 07-02-24
Date/Time Consultation Performed: 07-02-24
Requesting Provider: Dr. White
Performing Provider: Dr. Tomlinson
Reason for Consultation: Pneumonia vs. pneumonitis
Chief Complaint / Past History
Chief Complaint
Shortness of breath
History of Present Illness
Jian Asif, age 74, presented to the emergency on 07-01-24 with progressive shortness of breath. 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
host disease. He has been on sulfamethoxazole-trimethoprim and acyclovir prophylaxis - he is also supposed to be on posaconazole prophylaxis, but his insurance refused to cover the medication, and he has been off it for the past few months. He was
started on 3L via NS in the ED. CT chest showed 'patchy airspace and groundglass opacities' suspicious for pneumonitis vs. pneumonia. He was started on azithromycin and ceftriaxone. Denies any recent travels or known sick contacts. Of note, he is on
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
Past History
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
neuropathy; type II diabetes mellitus)
Past Surgical History: None
Allergy History:
No Known Allergies Allergy (Verified 07/01/24 11:13)
Medications Reviewed: Yes
Social History
Tobacco: Non-Smoker
Alcohol: None
Drug: None
Personal:
Living: With Family
Employment: Retired
Family History
Family History: Not Pertinent
Review of Systems
Review of Systems
General: Negative Fever, Chills or Change in Appetite
HEENT: Negative Lymphadenopathy or Stiff Neck
Cardiovascular: Negative Chest Pain, Dyspnea, Edema or Palpitations
Respiratory: Dyspnea and Cough; Negative Cyanosis, Hemoptysis or Sputum Production
Gasteroenterology: Negative Weight Loss, Nausea or Vomiting
Genital / Urological: Negative Dysuria or Hematuria
Hematologic: Negative Bleeding Problems
Endocrine: Negative Weight Change, Weakness or Fatigue
Musculoskeletal: Negative Joint Pain or Joint Swelling
Neurological: Negative Headache or Dizziness
Vital Signs
Temp Pulse Resp BP Pulse Ox
97.5 F 80 20 100/77 94
07/02/24 03:36 07/02/24 07:51 07/02/24 07:51 07/02/24 03:15 07/02/24 07:51
Physical Exam
Physical Exam
Constitutional: No Acute Distress and Comfortable
Head: Normocephalic
Eyes: Pupils Equal and Pupils Round
Pharynx: Benign
Oral: Poor Dentition, No Thrush and No Ulcers
Lymph Nodes: Negative Lymphadenopathy
Cardiovascular: Regular Rate and S1/S2
Pulmonary: Rales
Gastrointestinal: Soft, Non Tender and Non Distended
Extremities: Negative Edema, Clubbing or Erythema
Musculoskeletal: Negative Joint Swelling
Wound: None
Neurological: Awake, Alert, Oriented and No Motor Deficits
Psychological: Calm
Lab / Diagnostic Study Results
07/02/24 05:53
07/02/24 05:53
Abs Immat Gran (auto) 0.1 10^3/uL (0-0.05) H 07/01/24 11:15
Absolute Neuts (auto) 5.6 10^3/uL (1.4-6.5) 07/01/24 11:15
Absolute Lymphs (auto) 2.2 10^3/uL (1.2-3.4) 07/01/24 11:15
Absolute Monos (auto) 1.4 10^3/uL (0.1-0.6) H 07/01/24 11:15
Absolute Basos (auto) 0.0 10^3/uL (0-0.2) 07/01/24 11:15
Immature Gran % 0.8 % (0-0.5) H 07/01/24 11:15
Neutrophils % 59.6 % (42.2-75.2) 07/01/24 11:15
Lymphocytes % 23.7 % (20.5-51.1) 07/01/24 11:15
Monocytes % 14.7 % (1.7-9.3) H 07/01/24 11:15
Eosinophils % 0.8 % (0-6) 07/01/24 11:15
Basophils % 0.4 % (0-2) 07/01/24 11:15
Lactic Acid Cancelled 07/01/24 15:15
Microbiology Results
Micro:
07/01/24 22:51 Blood Culture - Pending
Blood/Venous
07/01/24 20:21 Influenza Types A & B (NAVYA) - Final
Nasal Swab Negative for Influenza A & B, NAAT
Negative results must be combined with clinical observations
and patient history.
Nucleic Acid Amplification test (NAAT)performed on the
[employer] platform.
07/01/24 17:50 Blood Culture - Pending
Blood/Venous
Assessment / Plan
Community-acquired pneumonia vs. pneumonitis
- Influenza and COVID-19 negative; blood cultures *2 pending.
- Afebrile with T-max of 99.6 F; tachycardia improved; on 2L O2 via NS.
- WBC count within normal limits this presentation; mild ALT and troponin elevation.
- Gilteritinib, belumosudil and ruxolitinib are known to cause dyspnea, not pneumonitis though.
- Notes significant improvement with his breathing since yesterday since starting IV dexamethasone.
- Due to his immunocompromised state, will continue ceftriaxone (day 2) and azithromycin (day 2).
Acute myeloid leukemia in remission
Status-post allogeneic T-cell transplant
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
Asbestosis
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
Thrombocytopenia
Hypertension
Hyperlipidemia
Benign prostatic hyperplasia
Neuropathy
Type II diabetes mellitus
[2024-07-02 11:40] LABS: Glucose - Point of Care 320 mg/dl (70-99)
[2024-07-02] MEDS: NOVOLOG FLEXPEN-LOW RESISTANCE 4 UNITS SC (13:00)
[2024-07-02] MEDS: ROCEPHIN 1000 MG IV (13:01)
[2024-07-02] MEDS: STERILE WATER FOR INJECTION 10 ML IV (13:02)
--- NOTE | 2024-07-02 13:53 | CON.PUL ---
Consultation
Consultation Request
Date/Time Consultation Requested: 07/02/24
Date/Time Consultation Performed: 07/02/24
Performing Provider: Sierra
Reason for Consultation: IPF, hypoxemia
Medical History
-
History of Present Illness:
Patient is a 74 year old male with history AML status post bone marrow transplant, chronic GVHD involving the skin/oral mucosa/eye/lungs, hypertension, hyperlipidemia, asbestosis presents with shortness of breath progressive for the past few days.
ED eval notable for hypoxia requiring [address] chest obtained showing known asbestosis, patchy opacites/nodules, coronary artery calcifications and negative for PE. He has been following with [facility] for most of his care including [facility].
Per report- developed progressive SOB since 06/26/24 without cough, fever, or chills. Saw account executive software sales at [facility] on 06/29/24, and notes PFT was 'not good'. Of note, pt has been off PJP and antifungal prophylaxis x 6 months. On 06/28, his transplant
team re-prescribed T/sulfa DS MWF and posaconazole. He had one dose of T/sulfa on 06/29.
Blood cultures obtained. He has been weaned to RA, 94%. Denies history of O2 use at home, never had lung disease in past per patient.
Trivial smoker, overall <10 years usage, quit decades ago.
Family history + for lung cancer in his father who smoked.
.
Past Medical History
Past Medical History: Other (see list below)
Social History
Tobacco: Former Smoker (<10 years total, quit >30 years ago)
Alcohol: None
Drug: None
Family History
Family History: Cancer
Allergies / Home Medications
Allergies
Allergy/AdvReac Type Severity Reaction Status Date / Time
No Known Allergies Allergy Verified 07/01/24 11:13
Home Medications
�Medication �Instructions �Recorded �Confirmed �Last Taken �Type
acyclovir 800 mg tablet 800 mg PO BID@1000,2200 prophylaxis 11/17/22 07/01/24 10/17/23 History
famotidine 20 mg tablet (Pepcid) 20 mg PO BID Gastrointestinal 11/17/22 07/01/24 04/29/23 10:00 History
issue ##0
multivitamin 1 tab PO DAILY@1000 Supplement 11/17/22 07/01/24 04/29/23 10:00 History
cholecalciferol (vitamin D3) 25 25 mcg PO DAILY@1000 Supplement 04/29/23 07/01/24 04/29/23 10:00 History
mcg (1,000 unit) tablet (Vitamin
D3)
cyanocobalamin (vitamin B-12) 1,000 mcg PO MOWEFR Supplement 04/29/23 07/01/24 04/28/23 22:00 History
1,000 mcg tablet (Vitamin B-12)
pravastatin 20 mg tablet 20 mg PO HS High Cholesterol 04/29/23 07/01/24 04/28/23 22:00 History
tamsulosin 0.4 mg capsule 0.4 mg PO HS Urinary Issue 04/29/23 07/01/24 04/28/23 22:00 History
diclofenac sodium 1 % topical gel 2 g topical QIDPRN PRN hip pain 10/18/23 07/01/24 Unknown History
gilteritinib 40 mg tablet (Xospata) 80 mg PO DAILY@1000 Autoimmune 10/18/23 07/01/24 Unknown History
Disorder
albuterol sulfate 90 mcg/actuation 1 puff inhalation 4-8XD 07/01/24 07/01/24 Unknown History
aerosol inhaler
ascorbic acid (vitamin C) 1,000 mg 1,000 mg PO HS 07/01/24 07/01/24 Unknown History
tablet
belumosudil 200 mg tablet 200 mg PO DAILY 07/01/24 07/01/24 Unknown History
(Rezurock)
benzonatate 100 mg capsule 100 mg PO Q6HPRN PRN cough 07/01/24 07/01/24 Unknown History
budesonide-formoterol HFA 160 2 puff inhalation R Q12 07/01/24 07/01/24 Unknown History
mcg-4.5 mcg/actuation aerosol
inhaler
erythromycin 5 mg/gram (0.5 %) eye 1 applic BOTH EYES HS 07/01/24 07/01/24 Unknown History
ointment
metformin 500 mg tablet 500 mg PO BIDWMEAL 07/01/24 07/01/24 Unknown History
olopatadine 0.2 % eye drops 1 drp BOTH EYES DAILY 07/01/24 07/01/24 Unknown History
prednisone 5 mg tablet 15 mg PO HS 07/01/24 07/01/24 Unknown History
pregabalin 200 mg capsule 200 mg PO Q12H 07/01/24 07/01/24 Unknown History
ruxolitinib 5 mg tablet (Jakafi) 5 mg PO BID 07/01/24 07/01/24 Unknown History
sulfamethoxazole 800 1 tab PO MOWEFR 07/01/24 07/01/24 Unknown History
mg-trimethoprim 160 mg tablet
tacrolimus 0.1 % topical ointment 1 applic topical Q12H 07/01/24 07/01/24 Unknown History
Review of Systems
-
History Source: Patient
All other systems: Negative unless noted
Vitals / Labs / Diagnostic Testing
Vital Signs
Temp Pulse Resp BP Pulse Ox
98.1 F 70 16 128/78 97
07/02/24 11:34 07/02/24 11:34 07/02/24 11:34 07/02/24 11:34 07/02/24 11:34
Lab Data
07/02/24 05:53
07/02/24 05:53
Microbiology
07/01/24 20:21 Nasal Swab Influenza Types A & B (NAVYA) - Final
Negative for Influenza A & B, NAAT
Negative results must be combined with clinical observations
and patient history.
Nucleic Acid Amplification test (NAAT)performed on the
[employer] platform.
Diagnostic Testing:
Physical Exam
-
HEENT: Normocephalic, Anicteric and Moist Mucous Membranes
Cardiovascular: S1/S2 and Regular Rhythm
Respiratory: Clear and Non-Labored Respirations
GI: Soft, Non Distended and Non Tender
Neurology: Awake, Alert, Oriented, AO x 3 and No Motor Deficits
Skin: Warm, Dry and Good Color
General: Comfortable and Other (NAD)
Assessment
-
Patient is a 74 year old male with history AML status post bone marrow transplant, chronic GVHD involving the skin/oral mucosa/eye/lungs, hypertension, hyperlipidemia, asbestosis presents with shortness of breath progressive for the past few days.
ED eval notable for hypoxia requiring [address] chest obtained showing known asbestosis, patchy opacites/nodules, coronary artery calcifications and negative for PE. We are consulted for eval.
Acute pulmonary insufficiency, briefly on o2, now weaned off
SOB
CT with new nodules/GGOs
Chronic ILD noted
Conditions present prior to admission
History of sepsis/pneumonia
Asbestosis
Pulmonary fibrosis
Chronic thrombocytopenia
AML status post bone marrow transplant
GVH Dz
In the process of obtaining Xospata has not received yet
Maintained on Rezurock Jakafi/prophylactic Bactrim+Acyclovir
HLD
HTN
R knee sx
Rotator cuff repairs B/L
Obesity BMI 36
History of VSE bacteremia 10/2023
Plan
Hypoxemia noted on arrival, placed on 3L NC but this was quickly weaned off
Currently saturating 94% on RA
Does not use O2 at home
Home O2 evaluation
Per report- developed progressive SOB since 06/26/24 without cough, fever, or chills. Saw account executive software sales at [facility] on 06/29/24, and notes PFT was 'not good'.
Of note, pt has been off PJP and antifungal prophylaxis x 6 months. On 06/28, his transplant team re-prescribed T/sulfa DS MWF and posaconazole. He had one dose of T/sulfa on 06/29.
Follows with [facility], no records of prior testing
CXR/CT obtained indicating neg PE, but there are new opacities present compared to prior CT in 05/24/24:
RUL 2.8cm nodular opacity
RUL 1.2cm opacity
PAOLA 1.4cm opacity
Other imaging reviewed, new since 05/24
CT from 11/19/22 showing RLL nodule 6.2mm
We reviewed this findings together which would need repeat imaging and likely further diagnostic testing
This should be followed at [facility] where he has been established
He agrees
Prior ECHO results are reviewed indicating normal function
Resume HTN meds
R/o infection given hematogic history, off prophylatic treatment as OP as well
Blood cultures obtained, pending
Can send sputum if able
He has history of VSE bacteremia in the past
Weight loss measures recommended
Obesity likely contributing to respiratory symptoms
Would screen for OSAS as well
Will need outpatient pulmonary evaluation at [facility]
Reviewed with patient
If w/u negative, can consider discharge planning
We will follow
Diagnostic Data
Chest X-Ray: 10/18/23- No active cardiopulmonary disease. Calcified pleural plaques suggesting prior asbestos exposure
CT Scan: CHEST 07/01/24- Examination is negative for pulmonary embolism. There are patchy airspace and groundglass opacities within both lungs which are new from examination May 24, 2024. Findings would be most suggestive of pneumonitis, and
infection and drug related pneumonitis would be the leading considerations. Neoplasia would be less likely, but still considered in the differential. No evidence for pleural effusion or pericardial effusion. Bilateral calcified pleural plaques,
stable, which is likely from previous asbestos exposure. Not mentioned above, there are chronic peripheral increased interstitial markings within both lungs, compatible with mild interstitial fibrosis with no evidence for honeycombing. Coronary
artery calcifications are present. Please correlate with symptoms of and risk factors for coronary artery disease, with further workup as clinically appropriate.
05/24/24- No evidence of pulmonary embolism. No evidence of pneumonia or acute cardiopulmonary process. Minor atelectasis and/or scarring. Bronchial wall thickening, suggesting bronchitis. Calcified pleural plaque formation.
Stable transverse narrowing of the tracheal lumen associated mild wall thickening. Mild subtle nodular wall thickening involving the peripheral left mainstem bronchus. Wall thickening and collapse with luminal narrowing involving the bronchus
intermedius, which has progressed, and proximal right middle lobe bronchus, which appears stable. Possible considerations include amyloidosis, granulomatosis with polyangiitis, relapsing polychondritis.
Echo: 10/20/23- Normal left ventricular chamber size. Normal left ventricular systolic function. Left ventricular ejection fraction is 60-65% by volumetric assessment. Normal regional wall motion. Mild concentric left ventricular
hypertrophy. No significant valvular disease. No evidence of vegetation, consider PROMISE if clinically indicated. No prior study available for comparison.
PFT's:
Reports and relevant images were personally reviewed.
Total time spent on this consultation __77__ includes review of history, physical exam, medications, laboratory data, personal review of imaging, extensive review of outpatient records, discussion with care team and respiratory therapy.
[2024-07-02 14:35] LABS: HDL Cholesterol 60 mg/dl; LDL Cholesterol, Calculated 107 mg/dl; Total Cholesterol 193 mg/dl (50-199); Triglyceride 131 mg/dl (10-149); Very Low Density Lipoprotein 26 mg/dl (0-30)
[2024-07-02 16:39] LABS: Glucose - Point of Care 192 mg/dl (70-99)
[2024-07-02] MEDS: NOVOLOG FLEXPEN-MODERATE RESISTANCE 1 UNITS SC (16:49)
[2024-07-03 00:15] LABS: Glucose - Point of Care 200 mg/dl (70-99)
[2024-07-03 03:36] VITALS: BP 109/76
[2024-07-03] MEDS: DECADRON 4 MG IV ×2 (03:43→09:24)
[2024-07-03 06:00] VITALS: BMI 36.9
[2024-07-03 06:25] LABS: Hematocrit 35.4 % (39.0-52.0); Hemoglobin 12.8 g/dL (13.0-18.0); Mean Corp Hgb Conc. 36.2 g/dL (33.0-37.0); Mean Corpuscular Hgb 36.8 pg (27.0-31.0); Mean Corpuscular Volume 101.7 fL (80.0-94.0); Platelet Count 52 10^3/uL (130-400); Red Blood Cell Count 3.48 10^6/uL (4.70-6.10); Red Cell Dist. Width 13.2 % (11.5-14.5); White Blood Cell Count 7.8 10^3/uL (4.8-10.8)
[2024-07-03 06:33] LABS: ALT (SGPT) 218 U/L (0-50); AST (SGOT) 178 U/L (17-59); Albumin 3.6 g/dl (3.5-5.0); Alkaline Phosphatase 100 U/L (38-126); Blood Urea Nitrogen 43 mg/dl (9-20); Calcium 9.3 mg/dl (8.4-10.2); Carbon Dioxide 24 mmol/L (22-30); Chloride 105 mmol/L (98-107); Estimated Creatinine Clearance 85 ml/min; Glucose 187 mg/dl (70-99); Magnesium 2.4 mg/dl (1.6-2.3); Potassium 4.5 mmol/L (3.5-5.1); Sodium 139 mmol/L (135-145); Total Bilirubin 0.6 mg/dl (0.2-1.3); Total Protein 6.3 g/dl (6.3-8.2); eGFR > 60.00
[2024-07-03 07:30] LABS: Glucose - Point of Care 188 mg/dl (70-99)
--- NOTE | 2024-07-03 07:37 | W.PN.HOSP.TC ---
Today's Communication/Plan
-
transition IV abx and steroids to oral
monitor respiratory status
discharge planning tomorrow if remains stable.
Assessment / Plan
Assessment / Plan
Physical Exam
General: No pallor, cyanosis, or jaundice. obese
HEENT: Throat clear. PERRLA Normocephalic atraumatic
NECK: Supple. No JVD Carotid Bruits
RESPIRATORY: Lungs clear to auscultation. crackles on auscultation
CVS: Sinus Tachy
ABDOMEN: Soft, non-tender. No distension. BS+/normal.
EXTREMITIES: No peripheral cyanosis or edema.
ASSISTED LIVING CARE MANAGER: AOx3. No focal deficits.
IMPRESSION:
74 male AML status post bone marrow transplant chronic nuldl-rojtub-nwvz disease hypertension hyperlipidemia asbestosis presents with shortness of breath progressive for the past few days. Denies fevers chills nausea vomiting constipation had an
episode of diarrhea few days ago since resolved. Reports productive cough denies hemoptysis. ED eval notable for hypoxia requiring 3 L tachypnea sinus tachycardia. Blood pressure stable no lactic acidosis. CT chest suggestive of pneumonitis
known asbestosis coronary artery calcifications. Negative for PE. History of thrombocytopenia platelets stable appears baseline. Troponin elevated 0.047 chest pain-free. BNP unremarkable. Denies orthopnea, reports lying flat actually helps
symptoms.
PLAN:
#Sepsis pneumonia versus pneumonitis
#Asbestosis/pulmonary fibrosis
Telemetry admit
Blood cultures
Sputum culture as possible
Continue azithromycin, ceftriaxone transitioned to cefdinir
Monitor for fever
Trend WBC
Home prednisone on hold for IV steroids
Decadron 4 mg IV every 6 tapered to oral prednisone 40 mg daily
O2 supplementation as necessary maintain saturation 92% or above
Xopenex scheduled and as needed avoiding albuterol due to tachycardia
Continue home Symbicort
Pulm ID eval appreciated
DM though borderline
likely steroid induced
A1c 6.6
low dose sliding advanced to moderate anglin
cont Metformin
Troponin elevation likely non-VA related
coronary artery calcifications noted on CT
diaphoretic overnight since resolved
Troponin peaked 0.047 since trended down
ECHO preserved EF 65% no significant change from Oct 2023
Cardio eval appreciated
empiric aspirin discontinued
#hx Thrombocytopenia
Baseline
Continue to monitor
#AML status post bone marrow transplant
#Vxkjz-deqkpl-jgig disease
[correction to prior documentation] cont Xospata
Continue home medication Rezurock Jakafi
Continue prophylaxis Bactrim acyclovir
DVT prophylaxis SCDs
GI prophylaxis continue home Pepcid twice daily
DNR as per patient
I spent a total of 50 minutes with the patient or on the floor. More than 50% of this time involved counseling and coordination of care.
Anticipated Discharge: 24 - 48 hours
Subjective/Interval History
-
Date of Service: July 03, 2024
Seen and examined at bedside in no acute distress resting comfortably in bed. Off oxygen supplementation stable respiratory status on room air.
Objective Data
-
Labs:
Laboratory Results
07/03/24
06:00
WBC 7.8
Hgb 12.8 L
Hct 35.4 L
Plt Count 52 L
Sodium 139
Potassium 4.5
Chloride 105
Carbon Dioxide 24
BUN 43 H
Creatinine 0.9
Glucose 187 H
Calcium 9.3
Total Bilirubin 0.6
AST 178 H
ALT 218 H
Alkaline Phosphatase 100
Vital Signs:
Vital Signs
Temp Pulse Resp BP Pulse Ox
97.6 F 83 18 109/76 93
07/03/24 03:36 07/03/24 03:36 07/03/24 03:36 07/03/24 03:36 07/03/24 03:36
I&O
07/02/24 07/03/24 07/04/24
06:59 06:59 06:59
Intake Total 720 / 720
Balance 720 / 720
[2024-07-03 07:50] VITALS: BP 115/72
[2024-07-03] MEDS: XOPENEX 0.63 MG INHALANT SOLUTION INH ×3 (08:05→20:18)
[2024-07-03] MEDS: SYMBICORT 160/4.5 MCG INHALER 2 PUFF INH ×2 (08:05→20:17)
--- NOTE | 2024-07-03 09:15 | W.PN.PUL3 ---
Today's Communication / Plan
-
Doing well, SOB has resolved -- unclear if this is from PO prednisone but can continue taper at discharge
We reviewed OP FU for abnl CT chest at [facility]
Resumed on home meds
Encouraged OOB, PT
Discharge planning per team
We will sign off at this time, please call with questions
Assessment
-
Patient is a 74 year old male with history AML status post bone marrow transplant, chronic GVHD involving the skin/oral mucosa/eye/lungs, hypertension, hyperlipidemia, asbestosis presents with shortness of breath progressive for the past few days.
ED eval notable for hypoxia requiring [address] chest obtained showing known asbestosis, patchy opacites/nodules, coronary artery calcifications and negative for PE. We are consulted for eval.
Acute pulmonary insufficiency, briefly on o2, now weaned off
SOB
CT with new nodules/GGOs
Chronic ILD noted
Conditions present prior to admission
History of sepsis/pneumonia
Asbestosis
Pulmonary fibrosis
Chronic thrombocytopenia
AML status post bone marrow transplant
GVH Dz
In the process of obtaining Xospata has not received yet
Maintained on Rezurock Jakafi/prophylactic Bactrim+Acyclovir
HLD
HTN
R knee sx
Rotator cuff repairs B/L
Obesity BMI 36
History of VSE bacteremia 10/2023
Plan
Hypoxemia noted on arrival, placed on 3L NC but this was quickly weaned off
Currently saturating 94% on RA
Does not use O2 at home
Home O2 evaluation
Per report- developed progressive SOB since 06/26/24 without cough, fever, or chills. Saw political director at [facility] on 06/29/24, and notes PFT was 'not good'.
Of note, pt has been off PJP and antifungal prophylaxis x 6 months. On 06/28, his transplant team re-prescribed T/sulfa DS MWF and posaconazole. He had one dose of T/sulfa on 06/29.
Follows with [facility], no records of prior testing
SOB has improved since admission
Unclear if this was from steroids, but can continue taper at discharge
CXR/CT obtained indicating neg PE, but there are new opacities present compared to prior CT in 05/24/24:
RUL 2.8cm nodular opacity
RUL 1.2cm opacity
PAOLA 1.4cm opacity
Other imaging reviewed, new since 05/[address] from 11/19/22 showing RLL nodule 6.2mm
We reviewed this findings together which would need repeat imaging and likely further diagnostic testing
This should be followed at [facility] where he has been established
He agrees
Prior ECHO results are reviewed indicating normal function
Resume HTN meds
R/o infection given hematogic history, off prophylatic treatment as OP as well
Blood cultures obtained, pending
Can send sputum if able
He has history of VSE bacteremia in the past
Weight loss measures recommended
Obesity likely contributing to respiratory symptoms
Would screen for OSAS as well
Will need outpatient pulmonary evaluation at [facility]
Reviewed with patient
Discharge planning
Diagnostic Data
Chest X-Ray: 10/18/23- No active cardiopulmonary disease. Calcified pleural plaques suggesting prior asbestos exposure
CT Scan: CHEST 07/01/24- Examination is negative for pulmonary embolism. There are patchy airspace and groundglass opacities within both lungs which are new from examination May 24, 2024. Findings would be most suggestive of pneumonitis, and
infection and drug related pneumonitis would be the leading considerations. Neoplasia would be less likely, but still considered in the differential. No evidence for pleural effusion or pericardial effusion. Bilateral calcified pleural plaques,
stable, which is likely from previous asbestos exposure. Not mentioned above, there are chronic peripheral increased interstitial markings within both lungs, compatible with mild interstitial fibrosis with no evidence for honeycombing. Coronary
artery calcifications are present. Please correlate with symptoms of and risk factors for coronary artery disease, with further workup as clinically appropriate.
05/24/24- No evidence of pulmonary embolism. No evidence of pneumonia or acute cardiopulmonary process. Minor atelectasis and/or scarring. Bronchial wall thickening, suggesting bronchitis. Calcified pleural plaque formation.
Stable transverse narrowing of the tracheal lumen associated mild wall thickening. Mild subtle nodular wall thickening involving the peripheral left mainstem bronchus. Wall thickening and collapse with luminal narrowing involving the bronchus
intermedius, which has progressed, and proximal right middle lobe bronchus, which appears stable. Possible considerations include amyloidosis, granulomatosis with polyangiitis, relapsing polychondritis.
Echo: 10/20/23- Normal left ventricular chamber size. Normal left ventricular systolic function. Left ventricular ejection fraction is 60-65% by volumetric assessment. Normal regional wall motion. Mild concentric left ventricular
hypertrophy. No significant valvular disease. No evidence of vegetation, consider PROMISE if clinically indicated. No prior study available for comparison.
PFT's:
Reports and relevant images were personally reviewed.
Total time spent on this consultation __45__ includes review of history, physical exam, medications, laboratory data, personal review of imaging, extensive review of outpatient records, discussion with care team and respiratory therapy.
Subjective Data
-
Date of Service:
Date of Service: July 03, 2024
Chief Complaint: Pulmonary Follow Up
Subjective:
No new events, remains stable on RA
No new complaints
Objective Data
Data Reviewed
Vital Signs / I&O / Oxygen:
Vital Signs
Temp Pulse Resp BP Pulse Ox
97.5 F 93 16 115/72 94
07/03/24 07:50 07/03/24 08:10 07/03/24 08:10 07/03/24 07:50 07/03/24 08:10
Intake and Output
07/02/24 07/03/24 07/04/24
06:59 06:59 06:59
Intake Total 720 / 720
Balance 720 / 720
SaO2 94
Nasal Cannula flow liters per 2
minute
Physical Exam
General: Comfortable and Other (NAD)
HEENT: Normocephalic, Anicteric and Moist Mucous Membranes
Cardiovascular: S1-S2 and Regular Rhythm
Respiratory: Clear and Non-Labored Respirations
GI: Soft, Non Distended and Non Tender
Neurology: Awake, Alert, Oriented, AO x 3 and No Motor Deficits
Skin: Warm, Dry and Good Color
Labs/Micro/Reports
Lab Data
07/03/24 06:00
07/03/24 06:00
Microbiology
07/01/24 22:51 Blood/Venous Blood Culture - Preliminary
No Growth in 24 hours- Final report to follow
07/01/24 17:50 Blood/Venous Blood Culture - Preliminary
No Growth in 24 hours- Final report to follow
07/01/24 20:21 Nasal Swab Influenza Types A & B (NAVYA) - Final
Negative for Influenza A & B, NAAT
Negative results must be combined with clinical observations
and patient history.
Nucleic Acid Amplification test (NAAT)performed on the
[employer] platform.
[2024-07-03] MEDS: GLUCOPHAGE 500 MG PO ×2 (09:22→16:38)
[2024-07-03] MEDS: MUCINEX 600 MG PO ×2 (09:22→22:59)
[2024-07-03] MEDS: ZITHROMAX 250 MG PO (09:22)
[2024-07-03] MEDS: LYRICA 200 MG PO ×2 (09:22→22:58)
[2024-07-03] MEDS: VITAMIN D3 (cholecalciferol) 25 MCG PO (09:22)
[2024-07-03] MEDS: PEPCID 20 MG PO ×2 (09:23→23:02)
[2024-07-03] MEDS: THERAGRAN 1 TABLET PO (09:23)
[2024-07-03] MEDS: ZOVIRAX 800 MG PO ×2 (09:23→22:59)
[2024-07-03] MEDS: NON-FORMULARY ITEM 200 MG PO (09:25)
[2024-07-03] MEDS: NON-FORMULARY ITEM 5 MG PO ×2 (09:25→23:04)
[2024-07-03] MEDS: NON-FORMULARY ITEM 80 MG PO (09:26)
[2024-07-03] MEDS: NOVOLOG FLEXPEN-MODERATE RESISTANCE 1 UNITS SC ×2 (09:28→16:36)
--- NOTE | 2024-07-03 09:30 | W.PN.CARDCBS ---
Addendum entered and electronically signed by Armen Wolf MD 07/03/24 14:15:
I saw and examined the patient.
The INFERTILITY MEDICAL ASSISTANT or PA's note was reviewed and I agree with the note.
Comment: General: Well developed, well nourished in NAD.
Echocardiogram is normal. Troponin elevation is nonischemic myocardial injury. No further workup needed without chest pain. Of note his cholesterol was not at goal but LFTs currently abnormal and pravastatin may need to be hold.
No further cardiac recommendations
Will sign off, call with questions
Original Note:
Today's Communication / Plan
-
echo normal LV size and function
repeat EKG without ST abnormalities
coronary calcification on CT - ruled out PR and no anginal symptoms. Rec: risk factor modification - ideally would like to increase statin for goal LDL <70 but limited by elevated ast/alt (pt reports these are chronically intermittantly elevated).
Defer to primary team at [facility].
BPs well controlled
telemetry NSR w/ freq PACs
Impression / Plan
-
PCP: [facility], old PCP retired and has not established care with new provider. Follows at [facility] for most of his medical diagnoses
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 Given that most of his care is at [facility], if he required a vb net developer it would be part of his team there.
Impression:
admitted with shortness of breath and cough 07/01/24
acute hypoxic respiratory insufficiency, improved following steroids, abx, oxygen - now weaned off oxygen
possible sepsis-BC pending
possible pneumonitis vs pneumonia
elevated troponin initially 0.047 and trending down
abnormal EKG
coronary calcification on chest CT
elevated glucose-on Metformin
thrombocytopenia
AML s/p bone marrow transplant
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
HTN
hyperlipidemia
asbestosis
lumbar spine surgery 03/28/24
ECHO 10/20/23: nl LV size and fxn, EF 60-65%, mild cLVH, no significant valvular heart disease
ECHO 07/02/24: LV small in size, mild cLVH, EF 65%, nl diastolic fxn, no significant valvular heart disease
Plan:
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 On the
day of admission he was short of breath at rest with orthopnea. Presented to ER and found to have acute hypoxic resp insufficiency w/ CT suggestive of pneumonitits. He was started on oxygen, steroids and prophylactic abx with improvement in
symptoms.
In ER troponin initially elevated but trending down: 0.047--0.040--0.030. Cardiology consulted for abnormal troponin and EKG, coronary calcification on CT scan, diaphoresis.
Prior to current presentation, he was participating in PT following spinal surgery 03/30 and had been able to bike for a mile, walk 1/4 mile, and do strengthening exercising with minimal dyspnea on exertion.
He currently has no chest pain, SOB, cough, palpitations, lightheadedness, syncope, edema, fevers, chills, nausea vomiting, diarrhea, diaphoresis.
EKG 07/01/24 1106 reviewed by me: Sinus tachycardia, low voltage, nonspecific T wave abnormality
EKG 07/02/24 0412 reviewed by me: NSR with sinus arrhythmia, pacs, questionable ST changes V3-V4
EKG 07/02/24 1324 reviewed by me: NSR, ST segments appear normal,artifact impairs interpretation.
-Pt without chest pain and troponin trending down. Echo yesterday showed normal LV function and no wall motion abnormalities
He was found to have coronary calcification on CT chest scan - no known h/o CAD . Rec: risk factor modification with statin, BP control. FLP checked yesterday: LDL 107, HDL 60, trig 131, tchol 193. On Pravastatin 20 mg. Of note, ast/alt elevated
today at 178, 218 respectively (09/01/24 ast 37, alt 68). Pt reports he has had elevated liver enzymes many times in the past and it is monitored by his primary team at [facility]. Can hold Pravachol for now if needed. Given coronary calcification and
elevated glucose, LDL goal <70 however would hold on increasing statin given elevated LFTs.
He has not followed regularly with a vb net developer but has been told that he would see one at [facility] if cardiac issues arise. Should send results of echo, CT, and d/c summary to [facility] team.
-telemetry reviewed by me shows normal sinus rhythm with frequent PACs.
-pt tells me he was told by [employer]ite Control Servicer that he does not have DM, sugars elevated due to meds. Continues Metformin. Hgb A1c 6.6 07/02/24.
-SOB has improved. No fevers. He is no longer on O2 and was able to walk down the [place] and back without becoming SOB. Continue prophylactic treatment of pneumonia per primary team. BC pending. Euvolemic on exam.
Progress Note - Air Brush Operator
Subjective
Date of Service: July 03, 2024
afebrile
off O2
walking hallways without SOB
No CP
Echo normal
AST/ALT elevated
Objective
Labs:
07/03/24 06:00
07/03/24 06:00
Labs
Hgb 12.8 g/dL (13.0-18.0) L 07/03/24 06:00
Hct 35.4 % (39.0-52.0) L 07/03/24 06:00
Plt Count 52 10^3/uL (130-400) L 07/03/24 06:00
Sodium 139 mmol/L (135-145) 07/03/24 06:00
Potassium 4.5 mmol/L (3.5-5.1) 07/03/24 06:00
BUN 43 mg/dl (9-20) H 07/03/24 06:00
Creatinine 0.9 mg/dL (0.7-1.3) 07/03/24 06:00
Glucose 187 mg/dl (70-99) H 07/03/24 06:00
Troponins
07/01/24 07/01/24 07/01/24
11:09 11:15 17:50
Troponin I Cancelled 0.047 H* 0.040 H*
07/01/24
22:51
Troponin I 0.030
Vital Signs and I&O:
Vital Signs
Temp Pulse Resp BP Pulse Ox
97.5 F 93 16 115/72 94
07/03/24 07:50 07/03/24 08:10 07/03/24 08:10 07/03/24 07:50 07/03/24 08:10
Vital Signs
Temp Pulse Resp BP Pulse Ox
97.5 F 93 16 115/72 94
07/03/24 07:50 07/03/24 08:10 07/03/24 08:10 07/03/24 07:50 07/03/24 08:10
Intake & Output
07/01/24 07/02/24 07/03/24 07/04/24
06:59 06:59 06:59 06:59
Intake Total 720 / 720
Balance 720 / 720
Physical Exam
Physical Exam
EN: NAD, awake, Ox3, sitting in chair. Off Oxygen
HEENT: supple, anicteric, no carotid bruit, no JVD
LUNGS: scattered crackles
CV: Reg, S1/S2, no murmur
ABD: soft, BS+, NT/ND
EXT: No edema
NEURO: tremors
SKIN: No rash
[2024-07-03 11:13] VITALS: BP 107/68
[2024-07-03 11:32] LABS: Glucose - Point of Care 229 mg/dl (70-99)
[2024-07-03] MEDS: NOVOLOG FLEXPEN-MODERATE RESISTANCE 3 UNITS SC (12:25)
[2024-07-03] MEDS: DELTASONE 40 MG PO (12:27)
[2024-07-03] MEDS: OMNICEF 300 MG PO ×2 (12:27→23:13)
--- NOTE | 2024-07-03 12:47 | W.PN.ID1 ---
Date of Service
Date of Service: July 03, 2024
Today's Communication
See below.
Assessment / Plan
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
# Chronic GVHD involving the skin, oral mucosa, eye, and lungs, on belumosudil (past 6 months) and Jakafi (past one month), and prednisone 15mg/d.
# Pneumonitis
- SOB and acute hypoxia responded well and quickly to high dose steroid. Continues to do well off oxygen.
- Suspect pneumonitis, possibly from GVHD flare and/or bronchiolitis obliterans
- Although he was off PJP ppx x 6 months, doubt PJP pneumonitis as hypoxia resolved without PJP treatment.
- Continue empiric CAP tx for cefdinir 300mg po bid and azithromycin 250mg po qd through 07/05/24.
- Continue t/sulfa MWF PJP prophylaxis.
- Close follow-up with transplant team at [facility].
Acute myeloid leukemia
Status-post allogeneic T-cell transplant
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
Asbestosis
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
Thrombocytopenia
Hypertension
Hyperlipidemia
Benign prostatic hyperplasia
Neuropathy
Type II diabetes mellitus
Chief Complaint
-: Other (SOB)
Subjective / Review of Systems
Continues to feel well. SOB resolved. Ambulated without MAZARIEGOS.
Vital Signs / Physical Exam
Vital Signs
Vital Signs
Temp Pulse Resp BP Pulse Ox
97.5 F 100 17 107/68 96
07/03/24 11:13 07/03/24 11:13 07/03/24 11:13 07/03/24 11:13 07/03/24 11:13
Physical Exam
Constitutional: No Acute Distress and Comfortable
Cardiovascular: Regular Rate and S1/S2
Pulmonary: Coarse (bibase coarse BS)
Gastrointestinal: Soft and Non Tender
Genito-Urinary: Negative CVA Tenderness
Extremities: Negative Edema
Neurological: AO x 3
Objective Data
Lab Data
Lab Results
07/03/24 06:00
07/03/24 06:00
Estimated Creat Clear 85 ml/min 07/03/24 06:00
Lactic Acid Cancelled 07/01/24 15:15
Total Bilirubin 0.6 mg/dl (0.2-1.3) 07/03/24 06:00
AST 178 U/L (17-59) H 07/03/24 06:00
ALT 218 U/L (0-50) H 07/03/24 06:00
Alkaline Phosphatase 100 U/L (38-126) 07/03/24 06:00
Most recent labs reviewed.
Micro Results:
07/01/24 22:51 Blood Culture - Preliminary
Blood/Venous No Growth in 24 hours- Final report to follow
07/01/24 17:50 Blood Culture - Preliminary
Blood/Venous No Growth in 24 hours- Final report to follow
07/01/24 20:21 Influenza Types A & B (NAVYA) - Final
Nasal Swab Negative for Influenza A & B, NAAT
Negative results must be combined with clinical observations
and patient history.
Nucleic Acid Amplification test (NAAT)performed on the
[employer] platform.
CT chest: There are patchy airspace and groundglass opacities within both lungs which are new from examination May 24, 2024. Findings would be most suggestive of pneumonitis, and infection and drug related pneumonitis would be the leading
considerations. Neoplasia would be less likely, but still considered in the differential. No evidence for pleural effusion or pericardial effusion. Bilateral calcified pleural plaques, stable, which is likely from previous asbestos exposure. Not
mentioned above, there are chronic peripheral increased interstitial markings within both lungs, compatible with mild interstitial fibrosis with no evidence for honeycombing.
Care Review
Plan reviewed with: Physician (Dr. White)
[2024-07-03 15:13] VITALS: BP 131/87
[2024-07-03 16:17] LABS: Glucose - Point of Care 198 mg/dl (70-99)
[2024-07-03 19:15] VITALS: BP 132/89
[2024-07-03 21:33] LABS: Glucose - Point of Care 253 mg/dl (70-99)
[2024-07-03] MEDS: FLOMAX 0.4 MG PO (22:57)
[2024-07-03] MEDS: PRAVACHOL 20 MG PO (22:58)
[2024-07-03] MEDS: VITAMIN C 1000 MG PO (22:59)
[2024-07-03] MEDS: ERYTHROMYCIN 0.5% OPHTHALMIC OINTMENT 1 APPLIC BOTH EYES (23:03)
--- NOTE | 2024-07-03 23:30 | PTCARENOTE ---
Addendum entered and electronically signed by Puneet White MD 07/04/24 10:57:
Reviewed with day nurse and records. This documentation and associated documented pressures has been entered for the wrong patient. Patient has been Normotensive overnight without issues.
Original Note:
@0063; Instructed CM Solis on manual BP=78/38 on left arm.Pt oriented ,denies CP/SOB. Received orders for stat CBC/ IV bolus /midodrine and administered.Instructed pt to remain in bed and to use his urinal.
[2024-07-03 23:35] VITALS: BP 125/86
[2024-07-04 01:18] VITALS: BP 118/51
[2024-07-04 03:20] VITALS: BP 122/82
[2024-07-04 06:00] VITALS: BMI 37.3
[2024-07-04 07:20] LABS: ALT (SGPT) 343 U/L (0-50); AST (SGOT) 245 U/L (17-59); Albumin 3.6 g/dl (3.5-5.0); Alkaline Phosphatase 105 U/L (38-126); Blood Urea Nitrogen 45 mg/dl (9-20); Calcium 9.4 mg/dl (8.4-10.2); Carbon Dioxide 25 mmol/L (22-30); Chloride 102 mmol/L (98-107); Estimated Creatinine Clearance 86 ml/min; Glucose 179 mg/dl (70-99); Magnesium 2.4 mg/dl (1.6-2.3); Potassium 4.4 mmol/L (3.5-5.1); Sodium 137 mmol/L (135-145); Total Bilirubin 0.6 mg/dl (0.2-1.3); eGFR > 60.00
[2024-07-04 07:26] LABS: Hematocrit 33.6 % (39.0-52.0); Hemoglobin 12.1 g/dL (13.0-18.0); Mean Corpuscular Hgb 36.8 pg (27.0-31.0); Mean Corpuscular Volume 102.1 fL (80.0-94.0); Mean Platelet Volume 11.5 fL (7.4-10.4); Platelet Count 55 10^3/uL (130-400); Red Blood Cell Count 3.29 10^6/uL (4.70-6.10); Red Cell Dist. Width 12.9 % (11.5-14.5); White Blood Cell Count 7.4 10^3/uL (4.8-10.8)
[2024-07-04] MEDS: SYMBICORT 160/4.5 MCG INHALER 2 PUFF INH (07:26)
[2024-07-04] MEDS: XOPENEX 0.63 MG INHALANT SOLUTION INH (07:26)
--- NOTE | 2024-07-04 07:31 | W.PN.HOSP.TC ---
Addendum entered and electronically signed by Puneet White MD 07/06/24 09:21:
Non ischemic myocardial injury
Original Note:
Today's Communication/Plan
-
discharge
Assessment / Plan
Assessment / Plan
Physical Exam
General: No pallor, cyanosis, or jaundice. obese
HEENT: Throat clear. PERRLA Normocephalic atraumatic
NECK: Supple. No JVD Carotid Bruits
RESPIRATORY: Clear non labored
CVS: NSR
ABDOMEN: Soft, non-tender. No distension. BS+/normal.
EXTREMITIES: No peripheral cyanosis or edema.
STUDENT SERVICES VICE PRESIDENT: AOx3. No focal deficits.
IMPRESSION:
74 male AML status post bone marrow transplant chronic efvlc-evnuaw-kcyr disease hypertension hyperlipidemia asbestosis presents with shortness of breath progressive for the past few days. Denies fevers chills nausea vomiting constipation had an
episode of diarrhea few days ago since resolved. Reports productive cough denies hemoptysis. ED eval notable for hypoxia requiring 3 L tachypnea sinus tachycardia. Blood pressure stable no lactic acidosis. CT chest suggestive of pneumonitis
known asbestosis coronary artery calcifications. Negative for PE. History of thrombocytopenia platelets stable appears baseline. Troponin elevated 0.047 chest pain-free. BNP unremarkable. Denies orthopnea, reports lying flat actually helps
symptoms.
PLAN:
#Sepsis pneumonia versus pneumonitis
#Asbestosis/pulmonary fibrosis
Telemetry admit
Blood cultures
Sputum culture as possible
Continue azithromycin, ceftriaxone transitioned to cefdinir, to cont abx through 07/05/24, 5 days abx as per ID
Afebrile
WBC wnl
Home prednisone held for IV steroids
Decadron 4 mg IV every 6 tapered to oral prednisone 40 mg daily, continues to improve, asymptomatic short taper anticipated, reduce by 10 mg every succeeding day till back to baseline 15 mg HS
weaned off oxygen, stable respiratory status on room air
Xopenex scheduled and as needed avoiding albuterol due to tachycardia since resolved
Continue home Symbicort
Pulm ID eval appreciated
DM though borderline
likely steroid induced
A1c 6.6
low dose sliding advanced to moderate anglin
cont Metformin
Troponin elevation likely non-ND related
coronary artery calcifications noted on CT
diaphoretic overnight since resolved
Troponin peaked 0.047 since trended down
ECHO preserved EF 65% no significant change from Oct 2023
Cardio eval appreciated
empiric aspirin discontinued
#hx Thrombocytopenia
Baseline
Continue to monitor
#AML status post bone marrow transplant
#Fkufw-wlkric-usck disease
cont Xospata
Continue home medication Rezurock Jakafi
Continue prophylaxis Bactrim acyclovir
Mild Transaminitis
hold statin follow up with primary care provider before resuming
DVT prophylaxis SCDs
GI prophylaxis continue home Pepcid twice daily
DNR as per patient
Medically Stable for discharge home with outpatient follow up recommendations and outpatient PT/OT (script provided)
Total Time Preparing Discharge ___40____ minutes including examination of the patient, summary of the hospital stay, instructions for continuing care to all relevant caregivers; and preparation of discharge records, prescriptions, and referral
forms if necessary.
Anticipated Discharge: Today
Subjective/Interval History
-
Date of Service: July 04, 2024
No acute distress. Comfortable. Ambulating with walker without issues. Denies new acute issues. Eager to go home
Objective Data
-
Labs:
Laboratory Results
07/04/24
06:13
WBC 7.4
Hgb 12.1 L
Hct 33.6 L
Plt Count 55 L
Sodium 137
Potassium 4.4
Chloride 102
Carbon Dioxide 25
BUN 45 H
Creatinine 0.9
Glucose 179 H
Calcium 9.4
Total Bilirubin 0.6
AST 245 H
ALT 343 H
Alkaline Phosphatase 105
Vital Signs:
Vital Signs
Temp Pulse Resp BP Pulse Ox
97.4 F 92 15 122/82 98
07/04/24 03:20 07/04/24 07:29 07/04/24 07:29 07/04/24 03:20 07/04/24 07:29
I&O
07/03/24 07/04/24 07/05/24
06:59 06:59 06:59
Intake Total 720 / 720 780 / 780
Balance 720 / 720 780 / 780
[2024-07-04 07:50] LABS: Glucose - Point of Care 167 mg/dl (70-99)
[2024-07-04 08:22] VITALS: BP 123/86
[2024-07-04] MEDS: DELTASONE 40 MG PO (09:27)
[2024-07-04] MEDS: ZITHROMAX 250 MG PO (09:27)
[2024-07-04] MEDS: OMNICEF 300 MG PO (09:27)
[2024-07-04] MEDS: VITAMIN D3 (cholecalciferol) 25 MCG PO (09:27)
[2024-07-04] MEDS: PEPCID 20 MG PO (09:27)
[2024-07-04] MEDS: LYRICA 200 MG PO (09:27)
[2024-07-04] MEDS: THERAGRAN 1 TABLET PO (09:28)
[2024-07-04] MEDS: MUCINEX 600 MG PO (09:28)
[2024-07-04] MEDS: ZOVIRAX 800 MG PO (09:28)
[2024-07-04] MEDS: GLUCOPHAGE 500 MG PO (09:28)
[2024-07-04] MEDS: NOVOLOG FLEXPEN-MODERATE RESISTANCE SC (09:29)
[2024-07-04] MEDS: VITAMIN B-12 1000 MCG PO (10:24)
[2024-07-04] MEDS: BACTRIM DS 800 MG/160 MG 1 TABLET PO (10:24)
[2024-07-04] MEDS: NON-FORMULARY ITEM 80 MG PO (11:10)
[2024-07-04] MEDS: NON-FORMULARY ITEM 200 MG PO (11:10)
[2024-07-04] MEDS: NON-FORMULARY ITEM 5 MG PO (11:10)
[2024-07-04 11:15] VITALS: BP 119/82
--- NOTE | 2024-07-04 11:29 | W.DCSUMMARY ---
Discharge Summary
Discharge Data
Date of Admission: 07/01/24
Date of Discharge: 07/04/24
-
Pending Results: Yes
Additional Pending Results:
official culture results
Discharge Plan
-
Patient Disposition: Home (Routine Discharge)
Discharge Diagnosis/Procedures: Pneumonitis vs Pneumonia
Possible Graft vs Host Disease Flare
Asbestosis/Pulmonary Fibrosis/Chronic Interstitial Lung Disease
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
Condition: Fair
Diet: Diabetic, Carb Controlled
Activity: As tolerated and With Walker
Driving Restrictions: As prior to admission
Bathing Restrictions: None
Blood Work: Please repeat CBC and CMP with primary care provider in 1 week of discharge.
Please repeat A1c with primary care provider in 3 months of discharge.
Activity Restrictions/Additional Instructions:
Please follow up with your primary care provider and transplant team/oncologist in 1 week of discharge.
Azithromycin and cefdinir have been prescribed for possible pneumonia to continue through 07/05/24 then stop
Prednisone taper has been prescribed for pneumonitis: 30 mg day 1, then 20 mg day 2, then return to home 15 mg bedtime regimen day 3
Pravastatin has been placed on hold due to rising liver enzymes. Please follow up with primary care provider and/or other healthcare provider involved in your care to determine when safe to resume, if an alternative agent is required instead, or if
unnecessary to resume.
Please take medications as prescribed/recommended and follow up with primary care provider and/or other healthcare provider involved in your care for further adjustments to your medication regimen as necessary.
Referrals:
UNKNOWN - PT DOES,NOT KNOW [Family Provider] -
Prescriptions:
New
cefdinir 300 mg Capsule
300 mg PO Q12 Qty: 3 0RF
Rx Instructions:
Last day of cefdinir 07/05/24 then stop
azithromycin 250 mg Tablet
250 mg PO DAILY Qty: 1 0RF
Rx Instructions:
Last dose 07/05/24 then stop
prednisone 10 mg tablet
10 mg PO DIRECTED Qty: 5 0RF
Rx Instructions:
30 mg day 1, then 20 mg day 2, then return to home 15 mg bedtime regimen day 3 and continue on from there.
Continued
multivitamin Tablet
1 tab PO DAILY@1000
acyclovir 800 mg tablet
800 mg PO BID@1000,2200
famotidine [Pepcid] 20 mg Tablet
20 mg PO BID Qty: 0
cyanocobalamin (vitamin B-12) [Vitamin B-12] 1,000 mcg Tablet
1,000 mcg PO MOWEFR
tamsulosin 0.4 mg capsule
0.4 mg PO HS
cholecalciferol (vitamin D3) [Vitamin D3] 25 mcg (1,000 unit) Tablet
25 mcg PO DAILY@1000
Xospata 40 mg Tablet
80 mg PO DAILY@1000
diclofenac sodium 1 % Gel
2 g TOPICAL QIDPRN PRN (Reason: hip pain)
albuterol sulfate 90 mcg/actuation HFA aerosol inhaler
1 puff INHALATION 4-8XD
metformin 500 mg tablet
500 mg PO BIDWMEAL
ascorbic acid (vitamin C) 1,000 mg tablet
1,000 mg PO HS
sulfamethoxazole-trimethoprim 800-160 mg tablet
1 tab PO MOWEFR
benzonatate 100 mg capsule
100 mg PO Q6HPRN PRN (Reason: cough)
erythromycin 5 mg/gram (0.5 %) ointment
1 applic BOTH EYES HS
tacrolimus 0.1 % ointment
1 applic TOPICAL Q12H
Patient Comments:
apply to arms/legs
pregabalin 200 mg capsule
200 mg PO Q12H
Patient Comments:
07/01/2024: last filled 06/22/24, 60 tabs for 30 days
olopatadine 0.2 % drops
1 drp BOTH EYES DAILY
budesonide-formoterol 160-4.5 mcg/actuation HFA aerosol inhaler
2 puff INHALATION R Q12
Jakafi 5 mg tablet
5 mg PO BID
Rezurock 200 mg tablet
200 mg PO DAILY
Held
pravastatin 20 mg tablet
20 mg PO HS
Hold Instructions: Hold at this time due to elevating liver enzymes. Follow up with primary care provider to determine when safe to resume, if an alternative agent is required instead, or if unnecessary to resume
prednisone 5 mg tablet
15 mg PO HS
Hold Instructions: Hold until prednisone taper completes
Discharge Orders:
Discharge Patient (As Directed); Ordered 07/04/24
Ordered By: Puneet White
Discharge Date and Time
Print Language: BRUNEIAN
--- NOTE | 2024-07-04 12:01 | CM ---
Pt for discharge today
Will need Rx for out patient PT - Dr White aware
Plans to call Uber for ride home
Discussed IMM
Plan - anticipate home with outpatient PT
--- NOTE | 2024-07-04 12:56 | PN.CDI ---
CDI
- -
CDI:
Physician Documentation Request
Admit Date: 07/01/24 18:04
Dear Doctor Cindy,
Clinical Indicators:
Patient admitted with sepsis.
07/03 Cardiology PN, 'Troponin elevation is non ischemic myocardial injury.'
07/04 PN, 'Troponin elevation likely non-AR related'
Troponin trend:
07/01/24 07/01/24 07/01/24
11:15 17:50 22:51
Troponin I 0.047 H* 0.040 H* 0.030
Due to potentially conflicting documentation, please clarify the etiology of the troponin elevation:
Non ischemic myocardial injury
Troponin elevation only
Other, please specify
Use of terms such as suspected, likely, concern for, or probable (associated with a specific diagnosis that is being evaluated, monitored, or treated as if it exists) are acceptable and can be coded in the inpatient setting, when documented at the
time of discharge.
Thank you,
Kendal Peguero RN BSN
CDI Specialist
available via tiger text
Please use your independent medical judgment in providing your response.
== END 2024-07-04 12:41 | disposition home or self-care (01) | DRG 871 ==
LOC: 3 WEST ACU 18:04
PROVIDERS: Physician Assistant; ADMITTING PHYSICIAN Internal Medicine; CONSULT PHYSICIAN Internal Medicine Cardiovascular Disease; EMERGENCY PHYSICIAN Student in an Organized Health Care Education/Training Program; OTHER PHYSICIAN Internal Medicine; OTHER PHYSICIAN Internal Medicine Infectious Disease
DX: A41.9 Sepsis, unspecified organism (principal); J18.9 Pneumonia, unspecified organism; D89.811 Chronic graft-versus-host disease; Z94.81 Bone marrow transplant status; C92.01 Acute myeloblastic leukemia, in remission; I5A Non-ischemic myocardial injury (non-traumatic); D84.9 Immunodeficiency, unspecified; J61 Pneumoconiosis due to asbestos and other mineral fibers; T38.0X5A Adverse effect of glucocorticoids and synthetic analogues, initial encounter; E11.65 Type 2 diabetes mellitus with hyperglycemia; J98.4 Other disorders of lung; Z11.52 Encounter for screening for COVID-19
CPT/HCPCS: 71275; 80053; 80061; 82962; 83036; 83605; 83735; 83880; 84484; 85025; 85027; 87040; 87502; 87811; 93005; 93306; 94640; 96365; 96375; 97116; 97162; 97166; 99285; Q9950; Q9967

== ENCOUNTER 2024-09-13 17:14 | Inpatient (IN) | payer MEDICARE, OTHER, SELFPAY ==
[2024-09-10] VITALS (8 sets, daily range): BP systolic 95–147; BP diastolic 66–96; BMI 38.2; BMI 36.6
[2024-09-10 15:31] LABS: % Basophils 0.3 % (0-2); % Eosinophils 0.3 % (0-6); % Lymphocytes 28.5 % (20.5-51.1); % Monocytes 6.1 % (1.7-9.3); % Neutrophils 60.8 % (42.2-75.2); Absolute Immature Granulocytes 0.2 10^3/uL (0-0.05); Absolute Lymphocytes 1.1 10^3/uL (1.2-3.4); Absolute Monocytes 0.2 10^3/uL (0.1-0.6); Absolute Neutrophils 2.3 10^3/uL (1.4-6.5); Hematocrit 27.8 % (39.0-52.0); Hemoglobin 9.9 g/dL (13.0-18.0); Mean Corp Hgb Conc. 35.6 g/dL (33.0-37.0); Mean Corpuscular Volume 109.4 fL (80.0-94.0); Nucleated Red Blood Cells % 1.3 % (-); Platelet Count 40 10^3/uL (130-400); Red Blood Cell Count 2.54 10^6/uL (4.70-6.10); Red Cell Dist. Width 17.5 % (11.5-14.5); White Blood Cell Count 3.8 10^3/uL (4.8-10.8)
[2024-09-10 15:36] LABS: ALT (SGPT) 43 U/L (0-50); AST (SGOT) 50 U/L (17-59); Albumin 3.7 g/dl (3.5-5.0); Alkaline Phosphatase 77 U/L (38-126); Blood Urea Nitrogen 31 mg/dl (9-20); Calcium 9.2 mg/dl (8.4-10.2); Carbon Dioxide 26 mmol/L (22-30); Chloride 101 mmol/L (98-107); Estimated Creatinine Clearance 87 ml/min; Glucose 191 mg/dl (70-99); Potassium 4.5 mmol/L (3.5-5.1); Sodium 138 mmol/L (135-145); Total Bilirubin 0.6 mg/dl (0.2-1.3); Total Protein 5.9 g/dl (6.3-8.2); eGFR > 60.00
[2024-09-10 15:44] LABS: NT-proBNP 550 pg/ml
--- NOTE | 2024-09-10 15:46 | ED.GENMED ---
History of Present Illness
General
Chief Complaint: Swelling
Source: patient
Exam Limitations: none
Time Seen by Provider: 09/10/24 14:51
Nursing documentation reviewed up to this point in time: agreed with
History of Present Illness
History of Present Illness:
Patient with complex medical history, discharge from [facility] 1 week ago, presents to ED secondary to increased leg swelling upon discharge, associated with shortness of breath. Patient was evaluated by visiting nurse,
who recommended patient come to ED for an evaluation. Patient states that secondary to low blood pressure, Lasix was not initiated during the hospitalization, but he started his first dose this morning. Denies chest pain. Denies fever or chills.
Denies coughing. Denies dizziness. Denies loss of appetite.
Past History
Past History
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
ED Past Surgical History: Orthopedic (Right knee surgery, bilateral rotator cuff repair), Tonsilectomy and Other (Cataract left)
Social History
Tobacco: Non-smoker
Alcohol: None
Drug: None
Living: with family
Review of Systems
Review of Systems
Allergies reviewed?: Yes
Constitutional: Reports no symptoms; Denies fever
EENT: Reports no symptoms
Respiratory: Reports no symptoms; Denies cough or trouble breathing
Cardiac: Reports no symptoms
ABD/GI: Reports no symptoms
Musculoskeletal: Reports edema
Skin: Reports no symptoms
Neurological: Reports no symptoms
Phy Exam
Physical Exam
Physical Exam:
Physical Exam
General: no apparent distress, not acutely ill. afebrile
Head: nc/at. eomi
Neck: supple. no meningeal signs.
Heart: s1/s2 regular rate and rhythm, no murmur. equal radial pulses.
Lungs: no acute respiratory distress. clear bilaterally
Abdomen: normal bowel sounds. not tender.
Neuro: alert and oriented. no focal neurological deficits
Skin: no rash
Psychiatric: well kept. interactive and cooperative
Extremities: B/L LE pitting edema. no calf tenderness.
Scores
Heart Failure Risk
Heart Failure Risk Score: Yes
History of Stroke or TIA: No
History of intubation for respiratory distress: No
Heart rate on ED arrival >/= 110: No
SaO2 <90% on arrival on room air: No
HR >/=110 during 3min walk test (or too ill to perform test): No
ECG has acute ischemic changes: No
Urea >/=12mmol/L (BUN 33.6mg/dL): No
Serum CO2>/=35mmol/L: No
Troponin I or T elevated to AK Level (0.4mg/dL): No
NT-proBNP >/=5,000ng/L (5,000pg/ml): No
HF Risk Score: 0
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
Course
Orders/Labs/Results
Orders:
Orders
09/10/24 Dinner
Regular
09/10/24 15:06
EKG [Electrocardiogram (*1)] Urgent
Reason for Study: Shortness of Breath
EKG- Treatment ONCE
CR Chest - 2 Views Urgent
Comment:
Reason For Exam: sob
09/10/24 15:15
Complete Blood Count/With Diff Urgent
Comprehensive Metabolic Panel Urgent
Pro-BNP [NT-proBNP] Urgent
09/10/24 17:29
Furosemide [Lasix] 20 mg IV NOW STA
09/10/24 18:18
Admit/Transfer Patient As Directed
Co-Sign Provider:
Level of Care: Observation services
Assign to:: Medical/Surgical
Physician / Group: giulia
Diagnosis: swelling
PRN Pain Medication Management As Directed
May give lesser potent ordered pain med per pt: Yes
preference::
Protocol:: Medication orders for pain may be administered in a
manner that supports deferring to patient preference
when the pt is:
- Requesting an ordered lesser potent pain medication.
Least to most potent pain medications are defined
as: acetaminophen < NSAID < tramadol < opioids
(morphine, oxycodone, hydromorphone).
- Requesting a lesser dose of the same medication IF
ORDERED.
- Requesting a less intrusive route of administration
if both routes are prescribed by the provider (PO <
IV).
09/10/24 18:19
Code Status As Directed
Resuscitation Status: Do not resuscitate
Reached after discussion with pt or family/Healthcare POA: Yes
DNR Bracelet Application ONCE
09/10/24 19:33
Albuterol [ProAIR HFA INHALER] 1 puff INH R Q4HPRN PRN
Azithromycin [Zithromax] 250 mg PO MoWeFr@0800
Cyanocobalamin [Vitamin B-12] 1,000 mcg PO MoWeFr@0800
Dextrose 50%-Water [Dextrose 50% Syringe] 12.5 grams IV [id number] PRN
Glucagon [GlucaGen] 1 mg IM PRN PRN
METFORMIN HCl [Glucophage] 500 mg PO BID@0800,1700
Sulfamethox./Trimethoprim Ds [Bactrim Ds 800 mg/160 mg] 1 tablet PO MoWeFr@0800
09/10/24 19:33
Activity As Directed
Activity Level: As Tolerated
Bedside Glucose Monitoring As Directed
Frequency: AC&HS
Additional Instructions:: Change to q6h if pt on TPN, tube feeding or not eating
Pneumatic Compression Sleeves As Directed
Type: Knee high
Vital Signs As Directed
Frequency: Per unit guidelines
Ot Eval And Treat Routine
Pt Eval And Treat Routine
Activity Level: As Tolerated
DX Deep Vein Thrombosis Video Routine
09/10/24 20:00
Budesonide/Formoterol 160/4.5 [Symbicort 160/4.5 Mcg Inhaler] 2 puff INH R BID
Famotidine [Pepcid] 20 mg PO BID
Pregabalin [Lyrica] 50 mg PO BID
ruxolitinib [Jakafi] 5 mg PO BID
09/10/24 22:00
Acyclovir [Zovirax] 800 mg PO BID@1000,2200
Erythromycin (Ilotycin) [Erythromycin 0.5% Ophthalmic Ointment] 1 applic BOTH EYES HS
Tamsulosin [Flomax] 0.4 mg PO HS
09/11/24 06:00
Complete Blood Count/With Diff IN AM
Comprehensive Metabolic Panel IN AM
Glycohemoglobin (HgbA1c) IN AM
09/11/24 07:30
Insulin Aspart Corrective Low [Novolog Flexpen-Low Resistance] See Protocol SC AC
09/11/24 08:00
Ascorbic Acid [Vitamin C] 1,000 mg PO DAILY
Furosemide [Lasix] 40 mg PO DAILY
LevoFLOXacin [Levaquin] 500 mg PO DAILY
Multivitamin [Theragran] 1 tablet PO DAILY
Prednisone [Deltasone] 30 mg PO DAILY
belumosudil [Rezurock] 200 mg PO DAILY
posaconazole 300 mg PO DAILY
09/11/24 10:00
Cholecalciferol (Vitamin D3) [VITAMIN D3 (cholecalciferol)] 25 mcg PO DAILY@1000
Abnormal Lab Results
09/10/24
15:15
WBC 3.8 L 10^3/uL
(4.8-10.8)
RBC 2.54 L 10^6/uL
(4.70-6.10)
Hgb 9.9 L g/dL
(13.0-18.0)
Hct 27.8 L %
(39.0-52.0)
MCV 109.4 H fL
(80.0-94.0)
MCH 39.0 H pg
(27.0-31.0)
RDW 17.5 H %
(11.5-14.5)
Plt Count 40 L 10^3/uL
(130-400)
MPV 13.0 H fL
(7.4-10.4)
Abs Immat Gran (auto) 0.2 H 10^3/uL
(0-0.05)
Absolute Lymphs (auto) 1.1 L 10^3/uL
(1.2-3.4)
Immature Gran % 4.0 H %
(0-0.5)
BUN 31 H mg/dl
(9-20)
Glucose 191 H mg/dl
(70-99)
Total Protein 5.9 L g/dl
(6.3-8.2)
09/10/24 15:15
09/10/24 15:15
Vital Signs
Initial and Last Documented VS:
Initial Vital Signs
Temp Pulse Resp BP Pulse Ox
97.8 F 103 25 112/70 98
09/10/24 14:57 09/10/24 14:57 09/10/24 14:57 09/10/24 14:57 09/10/24 14:57
Last Documented Vital Signs
Temp Pulse Resp BP Pulse Ox
97.7 F 98 18 147/96 100
09/10/24 19:42 09/10/24 19:42 09/10/24 19:42 09/10/24 19:42 09/10/24 19:42
MDM/Problems Addressed
MDM/Problems Addressed:
Pt with sig. LE edema, worsening quickly over one week. As such, will admit for iv diuresis.
*Critical Care Note
Total Time (30-74mins, 75-104mins- exclusive of procedures): Not Applicable
ED Attending Note
-
Portions of this chart may have been created with voice recognition software.� Occasional wrong word or��sound alike� substitutions may have occurred due to the inherent limitations of voice recognition software.
Discharge Plan
Departure
Patient Disposition: Admit
Date of Disposition: 09/10/24
Time of Disposition: 17:43
Admit to: Telemetry
Presentation/result/management discussed w/ accepting MD/DO: Hospitalist
Discharge Problem:
Fluid overload
Interventions
Interventions:
*Risk Screen - Suicide Last Done: 09/10/24 15:03
*General Assessment Last Done: 09/10/24 15:03
*Neglect/Abuse Screening Last Done: 09/10/24 15:03
*ED COVID-19 Vaccine History Last Done: 09/10/24 15:03
*Nursing Disposition Last Done: 09/10/24 19:26
ED- Cardiac Assessment Last Done: 09/10/24 15:19
ED- Pulmonary Assessment Last Done: 09/10/24 15:19
ED-Skin Assessment Last Done: 09/10/24 15:19
Discharge Date and Time
Discharge Date/Time: 09/10/24 19:26
[2024-09-10] MEDS: LASIX 20 MG IV (17:45)
--- NOTE | 2024-09-10 18:21 | HPS.HSE ---
Family Physician
-
Family Physician: Jama Falcon
Chief Complaint
-
swelling
History of Present Illness
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
presenting upon recommendation of his visiting nurse due to increased lower extremity edema. He has chronic lower extreme edema slightly but edema is a lot worse. He denies any weight gain.
Patient follows at [facility] for his jvbkk-enyeig-zaze disease. 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 He was admitted and given IV fluids received the infusion. He tolerated the
infusion well. He was discharged home 1 week ago.
He has been having increased lower extremity edema since discharge. He was prescribed Lasix but he took his first dose of 40 mg this morning.
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 He denies any cough or fevers or chills. Denies any abdominal pain or nausea or vomiting or diarrhea or urinary symptoms.
Denies smoking or alcohol use.
Medical History
Past Medical History
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
Past Surgical History: Reports Other ( Orthopedic (Right knee surgery, bilateral rotator cuff repair), Tonsilectomy and Other (Cataract left))
Social History
Tobacco: Non-smoker
Alcohol: None
Drug: None
Family History
Family History: Not pertinent
Allergies / Home Medications
Allergies reflects when Allergies were last updated in [facility].
Home Medications with original date entered in [facility]
Allergy/Medication List:
Allergies
Allergy/AdvReac Type Severity Reaction Status Date / Time
strawberry Allergy Unknown Anaphylaxis Verified 09/10/24 14:57
Home Medications
acyclovir 800 mg tablet 800 mg PO BID@1000,2200 prophylaxis 11/17/22
famotidine 20 mg tablet (Pepcid) 20 mg PO BID Gastrointestinal issue ##0 11/17/22
cholecalciferol (vitamin D3) 25 mcg (1,000 unit) tablet (Vitamin D3) 25 mcg PO DAILY@1000 Supplement 04/29/23
cyanocobalamin (vitamin B-12) 1,000 mcg tablet (Vitamin B-12) 1,000 mcg PO MOWEFR Supplement 04/29/23
tamsulosin 0.4 mg capsule 0.4 mg PO HS Urinary Issue 04/29/23
albuterol sulfate 90 mcg/actuation aerosol inhaler 1 puff inhalation R Q4HPRN PRN sob 07/01/24
ascorbic acid (vitamin C) 1,000 mg tablet 1,000 mg PO DAILY Supplement 07/01/24
belumosudil 200 mg tablet (Rezurock) 200 mg PO DAILY bone marrow transplant 07/01/24
budesonide-formoterol HFA 160 mcg-4.5 mcg/actuation aerosol inhaler 2 puff inhalation R BID 07/01/24
erythromycin 5 mg/gram (0.5 %) eye ointment 1 applic BOTH EYES HS Eye Condition 07/01/24
metformin 500 mg tablet 500 mg PO BIDWMEAL DIABETES 07/01/24
ruxolitinib 5 mg tablet (Jakafi) 5 mg PO BID bone marrow transplant 07/01/24
sulfamethoxazole 800 mg-trimethoprim 160 mg tablet 1 tab PO MOWEFR infection prophylaxis 07/01/24
azithromycin 250 mg tablet 250 mg PO MOWEFR 09/10/24
furosemide 40 mg tablet 40 mg PO DAILY 09/10/24
insulin aspart U-100 100 unit/mL (3 mL) subcutaneous pen (Novolog FlexPen U-100 Insulin aspart) 1 sliding scale dose SC AC 09/10/24
levofloxacin 500 mg tablet 500 mg PO DAILY 09/10/24
posaconazole 100 mg tablet,delayed release 300 mg PO DAILY 09/10/24
prednisone 10 mg tablet 30 mg PO DAILY 09/10/24
pregabalin 150 mg capsule 150 mg PO BID 09/10/24
therapeutic multivitamin 1 tab PO DAILY 09/10/24
Review of Systems
-
History Source: Patient
A 12 point ROS was completed and negative except as noted: Yes
Constitutional: Reports No Symptoms
EENT: Reports No Symptoms
Respiratory: Reports No Symptoms
Cardiac: Reports No Symptoms
Abdomen/GI: Reports No Symptoms
: Reports No Symptoms
Musculoskeletal: Reports See HPI
Skin: Reports No Symptoms
Neurological: Reports No Symptoms
Endocrine: Reports No Symptoms
Hematologic/Lymphatic: Reports No Symptoms
Psych: Reports No Symptoms
Physical Exam
Vital Signs
Vital Signs
Temp Pulse Resp BP Pulse Ox
97.8 F 96 16 108/84 99
09/10/24 14:57 09/10/24 17:45 09/10/24 17:30 09/10/24 17:45 09/10/24 17:30
Physical Exam
General: Well Developed, Well Nourished and No Apparent Distress
HEENT: NormoCephalic, Moist mucous membranes and Atraumatic
Respiratory: Clear
Cardiac: S1/S2 and Regular Rhythm; No Murmur or Rub
GI: Soft, Non Tender, Non Distended and Normal Bowel Sounds; No Organomegaly
Rectal: Deferred by Provider
Musculoskeletal: No Clubbing, No Cyanosis and No Edema
Skin: No Rash
Neuro: Nonfocal/grossly intact
Laboratory Results
-
09/10/24 15:15
09/10/24 15:15
Laboratory Results
Total Bilirubin 0.6 mg/dl (0.2-1.3) 09/10/24 15:15
AST 50 U/L (17-59) 09/10/24 15:15
ALT 43 U/L (0-50) 09/10/24 15:15
Alkaline Phosphatase 77 U/L (38-126) 09/10/24 15:15
Data Reviewed
-
Lab Data: Labs Reviewed by me
Old Records: Reviewed
Impression/Plan
-
IMPRESSION:
PLAN:
# Bilateral lower extremity edema secondary to recent IV fluids
-Cardiac BNP 550
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
-20 IV Lasix given
-Continue 40 oral Lasix daily
-PT/OT, case management for rehab necessity although patient is refusing at this time
AML status post bone marrow transplant
-Continue prophylactic antibiotics, posaconazole, acyclovir
-Continue Rezurock
-Continue Jakafi
Chronic thrombocytopenia
-Stable
Chronic wnvtw-zrvrnn-qutm disease with pulmonary involvement
History of asbestosis/pulmonary fibrosis
-Received infusion at [facility] last week
-Continue prednisone which is being weaned off
-Continue budesonide/formoterol
Essential hypertension
Hyperlipidemia
Borderline diabetes
-Continue metformin
-Insulin sliding scale
DNR/DNI
DVT prophylaxis�SCDs
Diabetic diet
[2024-09-10] MEDS: SYMBICORT 160/4.5 MCG INHALER 2 PUFF INH (20:07)
[2024-09-10] MEDS: PEPCID 20 MG PO (21:12)
[2024-09-10] MEDS: ZOVIRAX 800 MG PO (21:12)
[2024-09-10] MEDS: FLOMAX 0.4 MG PO (21:12)
[2024-09-10] MEDS: ZITHROMAX 250 MG PO (21:12)
[2024-09-10] MEDS: GLUCOPHAGE 500 MG PO (21:12)
[2024-09-10] MEDS: VITAMIN B-12 1000 MCG PO (21:12)
[2024-09-10] MEDS: ERYTHROMYCIN 0.5% OPHTHALMIC OINTMENT 1 APPLIC BOTH EYES (21:12)
[2024-09-10] MEDS: LYRICA 50 MG PO (21:12)
[2024-09-10] MEDS: LYRICA 100 MG PO (21:12)
[2024-09-10 21:13] LABS: Glucose - Point of Care 183 mg/dl (70-99)
[2024-09-10] MEDS: BACTRIM DS 800 MG/160 MG 1 TABLET PO (21:13)
[2024-09-11 06:00] VITALS: BMI 36.5
[2024-09-11 07:00] VITALS: BP 125/69
[2024-09-11] MEDS: SYMBICORT 160/4.5 MCG INHALER 2 PUFF INH ×2 (07:58→20:03)
[2024-09-11 08:34] LABS: Glucose - Point of Care 117 mg/dl (70-99)
[2024-09-11] MEDS: NOVOLOG FLEXPEN-LOW RESISTANCE SC ×2 (08:35→14:28)
--- NOTE | 2024-09-11 08:42 | W.PN.HOSP.TC ---
Addendum entered and electronically signed by Andrew Youngblood MD 09/11/24 14:25:
Physical Exam
NAD, resting comfortably in bed
Scleral anicteric
Moist mucous membranes
No JVD
CTA bilateral
Normal S1-S2 no murmurs
Soft nontender nondistended bowel sounds active
-Thompson - Indwelling bag with yellow urine
No peripheral pitting edema, echymosis on UE
Moves extremities spontaneously, LE wrapped in blue and titghlty with Bobo bangage
AAOx3
Assessment and Plan
Lower extremity swelling
-S/p IV diuretic one-time dose with good urinary output
-Currently p.o. diuretics
-Check limited 2D echocardiogram, EF from 06/30 65%
-BNP 550 per reference range of institution less than 900 is not consistent with heart failure
Labile BP
-Potentially volume down after receiving 1 dose of IV diuretic
-Will give 250cc bolus of fluid
-Repeat BP after
-Monitor on telemetry
-Check EKG, personally reviewed sinus tachycardia with PACs
Pancytopenia
-Known history of AML s/p bone marrow transplant, qofiu-tbbpar-cgmn disease
-Thrombocytopenic, 19. Check peripheral smear.
-If actively bleeding transfuse platelets of less than 30,000
-Without active bleeding transfuse platelets of less than 10,000
-If hemoglobin less than 7 transfuse PRBC
-Hematology/oncology consult
-Anemia, macrocytic/megaloblastic with hemoglobin 10.0, MCV 109.4. Check B12 folate
Diabetes
-A1c 7.2
-Sliding scale
-Accu-Cheks
-Goal blood glucose 140-180
-Carb controlled diet
Chronic Thompson
-Placed 1 week ago at [facility]
-Outpatient urology follow-up
Wound care/Skin tears
-Plan: Vaseline gauze and dry dressing to arms and R knee. ABD pads under Bobo wraps knee high to legs. Air chair cushion placed under intact heels to protect. Instructed patient to take air cushion home upon discharge to use when sitting. Patient
currently just purchased a donut type cushion, recommended not to use donut, air cushion more appropriate. - Per wound care
Original Note:
Today's Communication/Plan
-
Echo pending
Lasix 40 p.o. daily
Monitor BP and symptoms of lightheadedness
Heme-onc appreciated
Assessment / Plan
Assessment / Plan
Bilateral lower extremity edema secondary to recent IV fluids
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
- One dose 20mg IV lasix in ED
� Continue 40 oral Lasix daily
- Echo pending
� PT OT
Lightheadedness
- Orthostatics unable to complete as patient was unable to stand
- EKG sinus tachycardia with PACs
- Transfer to telemetry
� 250 cc bolus NSS
- Monitor
AML status post bone marrow transplant
� Continue prophylactic antibiotics, posaconazole, acyclovir
� Continue Rezurock and Jakaf
- Hemeonc appreciated
Acute on chronic thrombocytopenia
� Baseline 50s.
- ED 40 -> 19 today
- Monitor
- Peripheral blood smear pending
-Hemeonc appreciated
Chronic chjtn-voldre-dbme disease with pulmonary involvement
History of asbestosis/pulmonary fibrosis
� Received immunodiffusion for GVHD
�Continue prednisone which has been weaned off
- Continue budesonide/formoterol
Macrocytic anemia
- Suspected due to bone marrow transplant medications
- Hemoglobin 10 (baseline) MCV 109
- B12 and folate pending
BPH
- Continue tamsulosin
- Came in with gopi due to retaining a week ago
Borderline diabetes
� hga1c 7.2
- Sliding scale insulin
Hx essential HTN - no current meds
Hx Hyperlipidemia - no current meds
Anticipated Discharge: 24 - 48 hours
Subjective/Interval History
-
Date of Service: September 11, 2024
Objective Data
-
Labs:
Laboratory Results
09/11/24
07:12
WBC Pending
Hgb Pending
Hct Pending
Plt Count Pending
Sodium Pending
Potassium Pending
Chloride Pending
Carbon Dioxide Pending
BUN Pending
Creatinine Pending
Glucose Pending
Calcium Pending
Total Bilirubin Pending
AST Pending
ALT Pending
Alkaline Phosphatase Pending
Vital Signs:
Vital Signs
Temp Pulse Resp BP Pulse Ox
98.1 F 102 18 95/66 97
09/10/24 23:30 09/11/24 08:02 09/11/24 08:02 09/10/24 23:30 09/11/24 08:02
I&O
09/10/24 09/11/24 09/12/24
06:59 06:59 06:59
Output Total 1300 / 1300
Balance -1300 / -1300
Review of Systems
-
History Source: Patient
Respiratory: Reports Trouble Breathing (At baseline)
Cardiac: Reports Other (Lightheadedness); Denies Chest Pain
Abdomen/GI: Reports No Symptoms
Genitourinary: Reports No Symptoms
Skin: Reports Rash (At baseline)
Neuro: Reports No Symptoms
Physical Exam
-
Respiratory: Decreased Breath Sounds; Negative Crackles
Cardiac: Regular Rhythm and S1/S2
GI: Soft, Nontender, Nondistended and Normal Bowel Sounds
Musculoskeletal: Edema, Right Lower Extrem and Edema, Left Lower Extrem
Skin: Warm and Rash
Neuro: AO x 3
Psych: Calm
[2024-09-11 08:43] LABS: % Basophils 0.3 % (0-2); % Eosinophils 0.8 % (0-6); % Immature Granulocytes 3.8 % (0-0.5); % Monocytes 10.8 % (1.7-9.3); % Neutrophils 45.3 % (42.2-75.2); Absolute Immature Granulocytes 0.2 10^3/uL (0-0.05); Absolute Lymphocytes 1.6 10^3/uL (1.2-3.4); Absolute Monocytes 0.4 10^3/uL (0.1-0.6); Absolute Neutrophils 1.8 10^3/uL (1.4-6.5); Hematocrit 27.8 % (39.0-52.0); Mean Corpuscular Hgb 39.4 pg (27.0-31.0); Mean Corpuscular Volume 109.4 fL (80.0-94.0); Red Blood Cell Count 2.54 10^6/uL (4.70-6.10); Red Cell Dist. Width 17.2 % (11.5-14.5)
[2024-09-11] MEDS: GLUCOPHAGE 500 MG PO ×2 (08:58→16:51)
[2024-09-11] MEDS: LASIX 40 MG PO (08:58)
[2024-09-11] MEDS: PEPCID 20 MG PO ×2 (08:58→21:16)
[2024-09-11] MEDS: NON-FORMULARY ITEM 200 MG PO (08:59)
[2024-09-11] MEDS: VITAMIN C 1000 MG PO (08:59)
[2024-09-11] MEDS: THERAGRAN 1 TABLET PO (08:59)
[2024-09-11] MEDS: DELTASONE 30 MG PO (08:59)
[2024-09-11] MEDS: LYRICA 50 MG PO ×2 (08:59→21:16)
[2024-09-11] MEDS: LYRICA 100 MG PO ×2 (08:59→21:16)
[2024-09-11] MEDS: LEVAQUIN 500 MG PO (08:59)
[2024-09-11 09:01] LABS: ALT (SGPT) 42 U/L (0-50); AST (SGOT) 47 U/L (17-59); Albumin 3.7 g/dl (3.5-5.0); Alkaline Phosphatase 63 U/L (38-126); Blood Urea Nitrogen 36 mg/dl (9-20); Calcium 9.3 mg/dl (8.4-10.2); Carbon Dioxide 27 mmol/L (22-30); Chloride 101 mmol/L (98-107); Estimated Creatinine Clearance 76 ml/min; Glucose 96 mg/dl (70-99); Potassium 3.7 mmol/L (3.5-5.1); Sodium 139 mmol/L (135-145); Total Bilirubin 0.6 mg/dl (0.2-1.3); eGFR > 60.00
[2024-09-11] MEDS: VITAMIN D3 (cholecalciferol) 25 MCG PO (09:36)
[2024-09-11] MEDS: ZOVIRAX 800 MG PO ×2 (09:36→21:16)
--- NOTE | 2024-09-11 10:07 | WOUNDNOTE ---
GLUTEAL CLEFT AND BUTTOCKS
--- NOTE | 2024-09-11 10:10 | WOUNDNOTE ---
WON RN note: Patient admitted with fluid overload.
See H&P for complete history. Lives with Jannet at home has VN.
PMH: Acute myeloid leukemia-bone marrow transplant 2022, Anemia, arthritis, multiple ortho surgeries knees.
Wound Location and type/assessment: Patient admitted with: Skin tears to arms and R knee. Legs with edema, 2-3+, skin warm and dry + faint palpable pulses. Patient had some weeping mainly from R leg onto sheets, reports much less edema and weeping.
Patient confirmed he uses compression stockings with zipper at home, does not recall strength of stocking. With assist of nurse Kody, turned patient to side. Gluteal cleft and R buttock with stage 2 PI vs MASD, L buttock with denuded bleeding skin.
Patient wears depends, able to remove and use Ultrasorb pad instead. Patient reports current bed comfortable and makes his buttocks less sore.
Appetite: good.
Pressure redistribution devices in place: Asked bed tech Xavier to confirm bed as there is no sign on bed. Xavier stated has air mattress bed frame with Accumax mattress. Patient can turn easily with one assist. Pressure ulcer prevention measures reviewed
with patient, states he understands. Patient reports he can get oob to commode and chair.
Plan: Vaseline gauze and dry dressing to arms and R knee. ABD pads under Bobo wraps knee high to legs. Air chair cushion placed under intact heels to protect. Instructed patient to take air cushion home upon discharge to use when sitting. Patient
currently just purchased a donut type cushion, recommended not to use donut, air cushion more appropriate. Will confirm orders with hospitalist and updated nurse.
Updated care plan and will follow as needed.
Note to case management of equipment requested for discharge: VN
Recommend follow up at wound care center upon discharge if needed.
[2024-09-11 10:57] LABS: Mean Platelet Volume 12.4 fL (7.4-10.4); Platelet Count 19 10^3/uL (130-400)
[2024-09-11 11:32] VITALS: BP 100/70; BP 102/69; PULSE 103; PULSE 113
[2024-09-11 11:43] LABS: Glycohemoglobin (HgbA1c) 7.2 % (4.0-5.6)
[2024-09-11 12:08] LABS: Glucose - Point of Care 213 mg/dl (70-99)
[2024-09-11] MEDS: NSS 250 IV (12:17)
[2024-09-11] MEDS: NON-FORMULARY ITEM 5 MG PO ×2 (12:55→21:17)
[2024-09-11] MEDS: NON-FORMULARY ITEM 100 MG PO (12:57)
[2024-09-11 14:27] LABS: Glucose - Point of Care 125 mg/dl (70-99)
[2024-09-11 15:00] VITALS: BP 106/71
--- NOTE | 2024-09-11 15:41 | CON.CAR ---
Addendum entered and electronically signed by Saroj Garber MD 09/11/24 17:05:
I saw and examined the patient.
The Disc Pad Knockout Worker's note was reviewed and I agree with the note.
Comment: Briefly, 74-year-old man past medical history of AML status post bone marrow transplant complicated by bcdys-dnwhwm-znyr disease who presents with worsening peripheral edema. Cardiology was consulted for evaluation of possible CHF.
Patient does have peripheral edema on exam; however, proBNP was not significantly elevated at 550 and transthoracic echocardiogram shows normal biventricular function and no significant valvular pathology.
Possible that his edema is in part iatrogenic as he has received IV fluids recently
Could be due to to low oncotic pressure as would be seen with nephrotic syndrome or cirrhosis
Patient initially received IV Lasix but was then switched to oral diuretics with concern for hypotension.
For now agree with MARTIN wraps and elevation of the lower extremities
Cont low-dose oral diuretic
Monitor renal function and electrolytes
Original Note:
Consultation
Consultation Request
Date/Time Consultation Performed: 09/11/24
Requesting Provider: Dr. Crespo, resident
Performing Provider: Jasmina Lopez PA-C for Dr. Garber
Reason for Consultation: LE edema
Medical History
-
Chief Complaint: LE edema
History of Present Illness:
Patient is a 74-year-old male with past medical history of hypertension, hyperlipidemia, asbestosis, AML status post bone marrow transplant with chronic jydfs-jajsjs-ujyd disease, thrombocytopenia. He is followed by Dr. Lea and team at [facility].
He states he was started on a new IV infusion study drug recently, having just received 2 doses thus far. He had been admitted to [facility] at the end of June 2024 and presented with shortness of breath and cough. He was treated for
sepsis from pneumonia versus pneumonitis and cardiology was consulted due to mildly elevated troponin. Echocardiogram showed preserved EF. Chest CT showed evidence of coronary artery calcifications, and this was medically managed. He reports
approximately 1 week ago he received his second dose of study drug. Prior to receiving he was noted to be hypotensive with blood pressures in the 60s over 40s. He reports he was lightheaded with this. He received IV fluid with improvement in SBP
to 80s. He then received infusion of study drug and was sent to the ER for evaluation. He was given more IV fluid with improvement in systolic blood pressure to his baseline of approximately 110s. He was told he was retaining urine and required
Nguyễn catheter. He was discharged from ER within 24 hours. He reports since that time he has noted bilateral lower extremity edema. He reports it is bad enough that on the right he has numbness of his anterior thigh. He was started on p.o. Lasix
40 mg daily yesterday by his care team at [facility], however only took 1 dose and then was seen by visiting nursing and to emergency room for evaluation. He reports he could not get down to [facility] so he came here. proBNP 550. Chest x-ray read as with no
active disease. He was given dose of IV Lasix and transition to p.o. Lasix today. He reports while working with physical therapy he could not stand up due to weakness, however reports that this has been a chronic problem for him, not new since
admission. He was given a 250 fluid bolus earlier today. Cardiology consulted for evaluation. No weight gain.
PMH:
ER visit ~1 week ago at [facility] for hypotension prior to study drug administration (dose #2)
Admission to 06/2024 for sepsis, PNA vs pneumonitis, mild trop elevation (felt to be nonischemic myocardial injury)
AML s/p bone marrow transplant
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
HTN
hyperlipidemia
asbestosis
lumbar spine surgery 03/28/24
elevated glucose-on Metformin
thrombocytopenia
Coronary artery calcifications noted on chest CT 06/2024
Past Medical History
Past Medical History: Other (in HPI)
Past Surgical History: Orthopedic (lumbar spine surgery 03/28/24)
Social History
Tobacco: Non-Smoker
Alcohol: None
Drug: None
Personal:
Living: With Family
Family History
Family History: Reviewed & Not Pertinent
Allergies / Home Medications
Allergy/AdvReac Type Severity Reaction Status Date / Time
strawberry Allergy Unknown Anaphylaxis Verified 09/10/24 14:57
�Medication �Instructions �Recorded �Confirmed �Type
acyclovir 800 mg tablet 800 mg PO BID@1000,2200 prophylaxis 11/17/22 09/10/24 History
famotidine 20 mg tablet (Pepcid) 20 mg PO BID Gastrointestinal 11/17/22 09/10/24 History
issue ##0
cholecalciferol (vitamin D3) 25 25 mcg PO DAILY@1000 Supplement 04/29/23 09/10/24 History
mcg (1,000 unit) tablet (Vitamin
D3)
cyanocobalamin (vitamin B-12) 1,000 mcg PO MOWEFR Supplement 04/29/23 09/10/24 History
1,000 mcg tablet (Vitamin B-12)
tamsulosin 0.4 mg capsule 0.4 mg PO HS Urinary Issue 04/29/23 09/10/24 History
albuterol sulfate 90 mcg/actuation 1 puff inhalation R Q4HPRN PRN sob 07/01/24 09/10/24 History
aerosol inhaler
ascorbic acid (vitamin C) 1,000 mg 1,000 mg PO DAILY Supplement 07/01/24 09/10/24 History
tablet
belumosudil 200 mg tablet 200 mg PO DAILY bone marrow 07/01/24 09/10/24 History
(Rezurock) transplant
budesonide-formoterol HFA 160 2 puff inhalation R BID 07/01/24 09/10/24 History
mcg-4.5 mcg/actuation aerosol Lung/Breathing Issues
inhaler
erythromycin 5 mg/gram (0.5 %) eye 1 applic BOTH EYES HS Eye Condition 07/01/24 09/10/24 History
ointment
metformin 500 mg tablet 500 mg PO BIDWMEAL DIABETES 07/01/24 09/10/24 History
ruxolitinib 5 mg tablet (Jakafi) 5 mg PO BID bone marrow transplant 07/01/24 09/10/24 History
sulfamethoxazole 800 1 tab PO MOWEFR infection 07/01/24 09/10/24 History
mg-trimethoprim 160 mg tablet prophylaxis
azithromycin 250 mg tablet 250 mg PO MOWEFR Infection 09/10/24 09/10/24 History
furosemide 40 mg tablet 40 mg PO DAILY Fluid 09/10/24 09/10/24 History
Retention/Swelling
insulin aspart U-100 100 unit/mL 1 sliding scale dose SC AC Diabetes 09/10/24 09/10/24 History
(3 mL) subcutaneous pen (Novolog
FlexPen U-100 Insulin aspart)
levofloxacin 500 mg tablet 500 mg PO DAILY Infection 09/10/24 09/10/24 History
posaconazole 100 mg tablet,delayed 300 mg PO DAILY Infection 09/10/24 09/10/24 History
release
prednisone 10 mg tablet 30 mg PO DAILY Autoimmune Disorder 09/10/24 09/10/24 History
pregabalin 150 mg capsule 150 mg PO BID Neurological 09/10/24 09/10/24 History
Condition
therapeutic multivitamin 1 tab PO DAILY Supplement 09/10/24 09/10/24 History
Review of Systems
-
History Source: Patient
All other systems: Negative unless noted
Physical Exam
Vital Signs
Temp Pulse Resp BP Pulse Ox
97.6 F 102 18 125/69 97
09/11/24 07:00 09/11/24 08:02 09/11/24 08:02 09/11/24 07:00 09/11/24 08:02
Lab Results
09/11/24 07:12
09/11/24 07:12
Dbj-Q-Qqpxouwoatc Pept 550 pg/ml 09/10/24 15:15
Physical Exam
General: No Apparent Distress, Comfortable and Other (chronically ill appearing)
HEENT: Normocephalic, Anicteric and Moist Mucous Membranes
Respiratory: Clear and Non Labored Respirations
Cardiac: S1/S2 and Regular Rhythm
GI: Soft, Non Tender, Non Distended and Normal Bowel Sounds
Genito-urinary: Other (nguyễn catheter)
Musculoskeletal: No Clubbing, No Cyanosis and Edema (2+ edema of LLE, 3+ of RLE)
Skin: Warm, Dry and Other (B/L UE ecchymoses)
Neuro: AO x 3
Impression / Plan
-
Primary Artist Model: none, patient would want to follow with meat seafood associate at [facility]
Heme/onc: Dr. Lea at [facility] [phone]
Assessment:
Presentation with LE edema
Concern for iatrogenic HF from recent IVF administration
ER visit ~1 week ago at [facility] for hypotension prior to study drug administration (dose #2)
Admission to 06/2024 for sepsis, PNA vs pneumonitis, mild trop elevation (felt to be nonischemic myocardial injury)
AML s/p bone marrow transplant
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
HTN
hyperlipidemia
asbestosis
lumbar spine surgery 03/28/24
elevated glucose-on Metformin
anemia/thrombocytopenia
Coronary artery calcifications noted on chest CT 06/2024
Chronic weakness/ambulatory dysfunction
DNR code status
ECHO 07/02/24: EF 65%, mild cLVH
Plan:
-Patient presented with B/L LE edema after IVF administration in setting of hypotension prior to receiving study drug at [facility] last week.
-proBNP 550
-CXR without pleural effusions, no acute process noted
-s/p IV lasix x1 09/10 with good response. now on po lasix 40mg daily.
-this afternoon was noted to be 'too weak' for orthostatics by his report. reports this has been a chronic issue at home and was not secondary to lightheadedness/dizziness
-BPs appear stable, no hypotension. would continue po lasix for now. Cr stable
-continue martin wraps to B/L LE
-follow up echo study pending (as on new study drug since last echo 06/2024)
-follow plts, 19K this AM. heme/onc to see. contact info for [facility] team as above
-given sedentary nature, recent hypotension, tachycardia, weakness, could consider evaluation for VTE
-PT/OT as able
Data Reviewed
-
EKG: Tracing Personally Visualized and interpreted
Radiology: Report Reviewed by me
Medical Tests (Nuc Med, Echo etc): Report Reviewed by me
Labs: Labs Reviewed by me
Old Records: Reviewed
[2024-09-11 16:00] LABS: Folate 13.6 ng/ml (2.76-20); Vitamin B12 > 1000 pg/ml (239-931)
[2024-09-11 16:13] LABS: Glucose - Point of Care 191 mg/dl (70-99)
--- NOTE | 2024-09-11 16:32 | CM ---
manager investigations reviewed patient's chart and met with patient and patient was admitted under obs, LE letter provided to patient not signed, patient aware. Patient lives with spouse in a one story home with no steps to enter and no steps in home,
patient has a walker cane and w/c in home, sleeps in stuffed chair not a recliner spouse assists at home, patient has [facility] home care. Patient states he is followed by his oncology team at [place].
PCP: Dr. Falcon
Pharmacy: [facility]
Plan; Home when stable, need to check for any home care needs and set up [facility].
[2024-09-11] MEDS: NOVOLOG FLEXPEN-LOW RESISTANCE 1 UNITS SC (16:50)
--- NOTE | 2024-09-11 17:43 | CON.ONC ---
Impression
Impression
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
chronic GVHD, involving lungs, skin, mouth, eyes - recently started axatilimab
chronic thrombocytopenia (often in the 40-50 range)
Plan
Plan
Axatilimab has a 13% incidence of edema, and additional IVF likely also contributed
Gentle diuresis per primary team, elevation, wrapping of legs
Thrombocytopenia is chronic per patient
Monitor CBC regularly, watch for bleeding
Further mgmt of cGVHD per Dr Lea et al at [facility].
Patient History
History of Present Illness
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
of a visiting nurse secondary to increased lower extremity edema. He recently started an recetly FDA-approved, but not yet commercially available infusion medication (axatilimab?) for GVHD, but has had issues with hypotension, and was given IV
fluids. Since then, he has noted increased lower extremity edema for which she was prescribed Lasix, but he only took his first dose on the morning of admission.
Past-Medical/Surgical History
Past medical history includes AML as per the HPI, hypertension, hyperlipidemia, asbestosis and pulmonary fibrosis, borderline diabetes, thrombocytopenia,
Past surgical history noted for right knee surgery, bilateral rotator cuff repair, tonsillectomy, cataract surgery
Social history: He is a non-smoker, no alcohol
Family history: Not pertinent
Patient Medication
�Medication �Instructions �Recorded �Confirmed �Last Taken �Type
acyclovir 800 mg tablet 800 mg PO BID@1000,2200 prophylaxis 11/17/22 09/10/24 10/17/23 History
famotidine 20 mg tablet (Pepcid) 20 mg PO BID Gastrointestinal 11/17/22 09/10/24 04/29/23 10:00 History
issue ##0
cholecalciferol (vitamin D3) 25 25 mcg PO DAILY@1000 Supplement 04/29/23 09/10/24 04/29/23 10:00 History
mcg (1,000 unit) tablet (Vitamin
D3)
cyanocobalamin (vitamin B-12) 1,000 mcg PO MOWEFR Supplement 04/29/23 09/10/24 04/28/23 22:00 History
1,000 mcg tablet (Vitamin B-12)
tamsulosin 0.4 mg capsule 0.4 mg PO HS Urinary Issue 04/29/23 09/10/24 04/28/23 22:00 History
albuterol sulfate 90 mcg/actuation 1 puff inhalation R Q4HPRN PRN sob 07/01/24 09/10/24 Unknown History
aerosol inhaler
ascorbic acid (vitamin C) 1,000 mg 1,000 mg PO DAILY Supplement 07/01/24 09/10/24 Unknown History
tablet
belumosudil 200 mg tablet 200 mg PO DAILY bone marrow 07/01/24 09/10/24 Unknown History
(Rezurock) transplant
budesonide-formoterol HFA 160 2 puff inhalation R BID 07/01/24 09/10/24 Unknown History
mcg-4.5 mcg/actuation aerosol Lung/Breathing Issues
inhaler
erythromycin 5 mg/gram (0.5 %) eye 1 applic BOTH EYES HS Eye Condition 07/01/24 09/10/24 Unknown History
ointment
metformin 500 mg tablet 500 mg PO BIDWMEAL DIABETES 07/01/24 09/10/24 Unknown History
ruxolitinib 5 mg tablet (Jakafi) 5 mg PO BID bone marrow transplant 07/01/24 09/10/24 Unknown History
sulfamethoxazole 800 1 tab PO MOWEFR infection 07/01/24 09/10/24 Unknown History
mg-trimethoprim 160 mg tablet prophylaxis
azithromycin 250 mg tablet 250 mg PO MOWEFR Infection 09/10/24 09/10/24 Unknown History
furosemide 40 mg tablet 40 mg PO DAILY Fluid 09/10/24 09/10/24 Unknown History
Retention/Swelling
insulin aspart U-100 100 unit/mL 1 sliding scale dose SC AC Diabetes 09/10/24 09/10/24 Unknown History
(3 mL) subcutaneous pen (Novolog
FlexPen U-100 Insulin aspart)
levofloxacin 500 mg tablet 500 mg PO DAILY Infection 09/10/24 09/10/24 Unknown History
posaconazole 100 mg tablet,delayed 300 mg PO DAILY Infection 09/10/24 09/10/24 Unknown History
release
prednisone 10 mg tablet 30 mg PO DAILY Autoimmune Disorder 09/10/24 09/10/24 Unknown History
pregabalin 150 mg capsule 150 mg PO BID Neurological 09/10/24 09/10/24 Unknown History
Condition
therapeutic multivitamin 1 tab PO DAILY Supplement 09/10/24 09/10/24 Unknown History
Active Medications
Generic Name Dose Route Start Last Admin
Trade Name Freq PRN Reason Stop Dose Admin
Acyclovir Sodium 800 mg 09/10/24 22:00 09/11/24 09:36
Acyclovir Sodium 800 Mg Tablet PO 09/20/24 21:59 800 mg
BID@1000,2200 GINNY Administration
Albuterol 1 puff 09/10/24 19:33
Albuterol Hfa [90 Mcg/Dose] Inhaler INH
R Q4HPRN PRN
sob
Protocol
Ascorbic Acid 1,000 mg 09/11/24 08:00 09/11/24 08:59
Ascorbic Acid 500 Mg Tablet PO 10/09/24 07:59 1,000 mg
DAILY GINNY Administration
Azithromycin 250 mg 09/10/24 19:33 09/10/24 21:12
Azithromycin 250 Mg Tablet PO 250 mg
MoWeFr@0800 GINNY Administration
Budesonide/Formoterol Fumarate 2 puff 09/10/24 20:00 09/11/24 07:58
Symbicort Inhaler 160/4.5 INH 10/08/24 19:59 2 puff
R BID GINNY Administration
Protocol
Cholecalciferol 25 mcg 09/11/24 10:00 09/11/24 09:36
Cholecalciferol (Vitamin D3) 25 Mcg Tablet (1,000 Units) PO 10/09/24 09:59 25 mcg
DAILY@1000 GINNY Administration
Cyanocobalamin 1,000 mcg 09/10/24 19:33 09/10/24 21:12
Cyanocobalamin 1,000 Mcg Tablet PO 10/08/24 19:32 1,000 mcg
MoWeFr@0800 GINNY Administration
Dextrose 12.5 grams 09/10/24 19:33
Dextrose 50% (0.5 Grams/Ml) 50 Ml Syringe IV 10/08/24 19:32
[id number] PRN
hypoglycemia
Protocol
Erythromycin 1 applic 09/10/24 22:00 09/10/24 21:12
Erythromycin 0.5% (Ophthalmic Ointment) 1 Gram Tube BOTH EYES 09/20/24 21:59 1 applic
HS GINNY Administration
Famotidine 20 mg 09/10/24 20:00 09/11/24 08:58
Famotidine 20 Mg Tablet PO 10/08/24 19:59 20 mg
BID GINNY Administration
Furosemide 40 mg 09/11/24 08:00 09/11/24 08:58
Furosemide 40 Mg Tablet PO 10/09/24 07:59 40 mg
DAILY GINNY Administration
Glucagon 1 mg 09/10/24 19:33
Glucagon 1 Mg Vial IM 10/08/24 19:32
PRN PRN
hypoglycemia
Protocol
Insulin Aspart 0 units 09/11/24 07:30 09/11/24 16:50
Insulin Aspart Low Resistance 300 Units/3 Ml Pen.Injctr SC 10/09/24 07:29 1 units
AC GINNY Administration
Protocol
Levofloxacin 500 mg 09/11/24 08:00 09/11/24 08:59
Levofloxacin 500 Mg Tablet PO 500 mg
DAILY GINNY Administration
Metformin HCl 500 mg 09/10/24 19:33 09/11/24 16:51
Metformin 500 Mg Regular Release Tablet PO 10/08/24 19:32 500 mg
BID@0800,1700 GINNY Administration
Multivitamins Therapeutic 1 tablet 09/11/24 08:00 09/11/24 08:59
Multivitamin Tablet PO 10/09/24 07:59 1 tablet
DAILY GINNY Administration
Belumosudil [ 0 mg 09/11/24 08:00 09/11/24 08:59
Rezurock] 200 Mg PO 10/09/24 07:59 200 mg
Tablet - Take 1 DAILY GINNY Administration
Tablet Po Daily
Posaconazole 100 Mg 0 mg 09/11/24 08:00 09/11/24 12:57
Tablet,Delayed PO 10/09/24 07:59 100 mg
Release (Dr/Ec) - DAILY GINNY Administration
300 Mg Po Daily
Ruxolitinib [Jakafi] 0 mg 09/11/24 13:00 09/11/24 12:55
5 Mg Tablet - 5 Mg PO 10/09/24 12:59 5 mg
Po Bid BID GINNY Administration
Prednisone 30 mg 09/11/24 08:00 09/11/24 08:59
Prednisone 10 Mg Tablet PO 10/09/24 07:59 30 mg
DAILY GINNY Administration
Pregabalin 50 mg 09/10/24 20:00 09/11/24 08:59
Pregabalin 50 Mg Capsule PO 10/08/24 19:59 50 mg
BID GINNY Administration
Pregabalin 100 mg 09/10/24 20:00 09/11/24 08:59
Pregabalin 100 Mg Capsule PO 10/08/24 19:59 100 mg
BID GINNY Administration
Tamsulosin HCl 0.4 mg 09/10/24 22:00 09/10/24 21:12
Tamsulosin 0.4 Mg Capsule PO 10/08/24 21:59 0.4 mg
HS GINNY Administration
Trimethoprim/Sulfamethoxazole 1 tablet 09/10/24 19:33 09/10/24 21:13
Sulfamethoxazole (800 Mg)/Trimethoprim (160 Mg) Tablet PO 1 tablet
MoWeFr@0800 GINNY Administration
Review of Systems
-
All Other Systems: Not reviewed unless documented
Physical Exam
-
General: Well Developed, Well Nourished, No Apparent Distress and Comfortable
HEENT: Other (facial fullness)
Neurology: Non Focal, No Lateralizing Symptoms and No Word Finding Difficulty
Skin: Warm and Dry
Psych: Calm and Intact Judgement/Insight
Labs
Lab Results
WBC 4.0 10^3/uL (4.8-10.8) L 09/11/24 07:12
RBC 2.54 10^6/uL (4.70-6.10) L 09/11/24 07:12
Hgb 10.0 g/dL (13.0-18.0) L 09/11/24 07:12
Hct 27.8 % (39.0-52.0) L 09/11/24 07:12
MCV 109.4 fL (80.0-94.0) H 09/11/24 07:12
MCH 39.4 pg (27.0-31.0) H 09/11/24 07:12
MCHC 36.0 g/dL (33.0-37.0) 09/11/24 07:12
RDW 17.2 % (11.5-14.5) H 09/11/24 07:12
Plt Count 19 10^3/uL (130-400) L* D 09/11/24 07:12
MPV 12.4 fL (7.4-10.4) H 09/11/24 07:12
Abs Immat Gran (auto) 0.2 10^3/uL (0-0.05) H 09/11/24 07:12
Absolute Neuts (auto) 1.8 10^3/uL (1.4-6.5) 09/11/24 07:12
Absolute Lymphs (auto) 1.6 10^3/uL (1.2-3.4) 09/11/24 07:12
Absolute Monos (auto) 0.4 10^3/uL (0.1-0.6) 09/11/24 07:12
Absolute Eos (auto) 0.0 10^3/uL (0-0.7) 09/11/24 07:12
Absolute Basos (auto) 0.0 10^3/uL (0-0.2) 09/11/24 07:12
Immature Gran % 3.8 % (0-0.5) H 09/11/24 07:12
Neutrophils % 45.3 % (42.2-75.2) 09/11/24 07:12
Lymphocytes % 39.0 % (20.5-51.1) 09/11/24 07:12
Monocytes % 10.8 % (1.7-9.3) H 09/11/24 07:12
Eosinophils % 0.8 % (0-6) 09/11/24 07:12
Basophils % 0.3 % (0-2) 09/11/24 07:12
Creatinine 1.0 mg/dL (0.7-1.3) 09/11/24 07:12
Vital Signs
Vital Signs
Temp Pulse Resp BP Pulse Ox
97.6 F 102 20 106/71 98
09/11/24 15:00 09/11/24 15:00 09/11/24 15:00 09/11/24 15:00 09/11/24 15:00
[2024-09-11 19:39] VITALS: BP 120/72
[2024-09-11 21:14] LABS: Glucose - Point of Care 258 mg/dl (70-99)
[2024-09-11] MEDS: FLOMAX 0.4 MG PO (21:16)
[2024-09-11] MEDS: ERYTHROMYCIN 0.5% OPHTHALMIC OINTMENT 1 APPLIC BOTH EYES (21:17)
[2024-09-11 23:16] VITALS: BP 103/75
[2024-09-12] VITALS (8 sets, daily range): BP systolic 79–129; BP diastolic 60–92; BMI 36.3
--- NOTE | 2024-09-12 07:26 | W.PN.ONC2 ---
Today's Communication / Plan
-
Continue supportive care. He seems to be improving. Await PLT count. Transfusion threshold 15,000.
Impression
Impression
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
chronic GVHD, involving lungs, skin, mouth, eyes - recently started axatilimab
chronic thrombocytopenia (often in the 40-50 range)
Plan
Plan
Axatilimab has a 13% incidence of edema, and additional IVF likely also contributed
Gentle diuresis per primary team, elevation, wrapping of legs
Thrombocytopenia is chronic per patient
Monitor CBC regularly, watch for bleeding. Transfuse PLT < 15K with leukoreduced irradiated products.
Further mgmt of cGVHD per Dr Regalado at [facility].
Subjective/Objective
Chief Complaint
ACS Heme Onc
Subjective
Leg swelling much improved per his report. No SOB or cough. Just weak.
Vital Signs:
Vital Signs
Temp Pulse Resp BP Pulse Ox
98.0 F 104 18 103/75 98
09/11/24 23:16 09/11/24 23:16 09/11/24 23:16 09/11/24 23:16 09/11/24 23:16
Lab Results:
Laboratory Data
WBC 4.0 10^3/uL (4.8-10.8) L 09/11/24 07:12
Hgb 10.0 g/dL (13.0-18.0) L 09/11/24 07:12
Plt Count 19 10^3/uL (130-400) L* D 09/11/24 07:12
eGFR > 60.00 09/11/24 07:12
Physical Exam
Cardiology: S1 and S2
Pulmonary: Clear; No Wheezes
GI: Soft
Extremities: Edema
[2024-09-12 07:36] LABS: Glucose - Point of Care 173 mg/dl (70-99)
[2024-09-12] MEDS: NOVOLOG FLEXPEN-LOW RESISTANCE 1 UNITS SC (07:45)
[2024-09-12] MEDS: LASIX PO ×2 (07:46→09:16)
[2024-09-12] MEDS: LYRICA 100 MG PO ×2 (07:46→21:00)
[2024-09-12] MEDS: DELTASONE 30 MG PO (07:46)
[2024-09-12] MEDS: LYRICA 50 MG PO (07:46)
[2024-09-12] MEDS: GLUCOPHAGE 500 MG PO ×2 (07:46→16:50)
[2024-09-12] MEDS: LEVAQUIN 500 MG PO (07:46)
[2024-09-12] MEDS: VITAMIN C 1000 MG PO (07:46)
[2024-09-12] MEDS: PEPCID 20 MG PO ×2 (07:46→21:00)
[2024-09-12] MEDS: NON-FORMULARY ITEM 5 MG PO ×2 (07:47→21:00)
[2024-09-12] MEDS: THERAGRAN 1 TABLET PO (07:47)
[2024-09-12] MEDS: VITAMIN D3 (cholecalciferol) 25 MCG PO (07:47)
[2024-09-12] MEDS: NON-FORMULARY ITEM 100 MG PO (07:48)
[2024-09-12] MEDS: NON-FORMULARY ITEM 200 MG PO (07:48)
[2024-09-12] MEDS: BACTRIM DS 800 MG/160 MG 1 TABLET PO (07:51)
[2024-09-12] MEDS: VITAMIN B-12 1000 MCG PO (07:51)
[2024-09-12] MEDS: ZOVIRAX 800 MG PO ×2 (07:58→21:00)
[2024-09-12] MEDS: ZITHROMAX 250 MG PO (07:59)
[2024-09-12 08:26] LABS: Hematocrit 27.6 % (39.0-52.0); Mean Corp Hgb Conc. 35.5 g/dL (33.0-37.0); Mean Corpuscular Hgb 39.7 pg (27.0-31.0); Mean Corpuscular Volume 111.9 fL (80.0-94.0); Platelet Count 27 10^3/uL (130-400); Red Blood Cell Count 2.52 10^6/uL (4.70-6.10); Red Cell Dist. Width 17.2 % (11.5-14.5); White Blood Cell Count 4.2 10^3/uL (4.8-10.8)
[2024-09-12] MEDS: SYMBICORT 160/4.5 MCG INHALER 2 PUFF INH ×2 (08:32→19:55)
[2024-09-12 09:56] LABS: Blood Urea Nitrogen 35 mg/dl (9-20); Calcium 9.2 mg/dl (8.4-10.2); Carbon Dioxide 31 mmol/L (22-30); Chloride 99 mmol/L (98-107); Estimated Creatinine Clearance 76 ml/min; Glucose 122 mg/dl (70-99); Potassium 3.5 mmol/L (3.5-5.1); Sodium 139 mmol/L (135-145); eGFR > 60.00
[2024-09-12] MEDS: NSS 500 IV (10:15)
--- NOTE | 2024-09-12 10:35 | W.PN.CARDCBS ---
Addendum entered and electronically signed by Ivory Uriarte MD 09/12/24 14:06:
I saw and examined the patient.
The Airplane Navigator's note was reviewed and I agree with the note.
Comment: Spoke with patient at great length he feels when he changes position the room spins (history of vertigo in the past) he also feels like he cannot breathe he is afraid that his breathing stops. He has a large anxiety component associated
with this. Edema does not appear to be cardiac in symptomatology may be in part related to research trial medication, defer to oncology. At this time would not recommend further diuretic. Continue with Bobo wrap/compression. Would consider ENT
assessment given spinning sensation. Will defer to primary service.
Exam without change.
Please reconsult us if new cardiac issues develop.
Original Note:
Today's Communication / Plan
-
stop lasix. likely noncardiac edema, from study drug
IVF
follow BP/HR
bobo wraps to B/L LE
Impression / Plan
-
Primary Insurance Verify Rep: none, patient would want to follow with humidifier maintenance worker at [facility]
Heme/onc: Dr. Lea at [facility] [phone]
Assessment:
Presentation with LE edema
Concern for iatrogenic HF from recent IVF administration
ER visit ~1 week ago at [facility] for hypotension prior to study drug administration (dose #2)
Admission to 06/2024 for sepsis, PNA vs pneumonitis, mild trop elevation (felt to be nonischemic myocardial injury)
AML s/p bone marrow transplant
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
HTN
hyperlipidemia
asbestosis
lumbar spine surgery 03/28/24
elevated glucose-on Metformin
anemia/thrombocytopenia
Coronary artery calcifications noted on chest CT 06/2024
Chronic weakness/ambulatory dysfunction
DNR code status
ECHO 07/02/24: EF 65%, mild cLVH
ECHO 09/11/24: EF 65 to 70%, no gross regional wall motion abnormalities noted, no significant change compared to prior
Plan:
-Oncology notes reviewed. Patient's study drug axatilimab with 13% incidence of edema. likely noncardiac edema. albumin 3.7
-patient reports weakness and dizziness this morning. will stop lasix as not felt to be CHF related. continue IVF as ordered as likely intravascularly deplete although extravascularly overloaded.
-continue bobo wraps to B/L LE
-follow up echo as above, no significant change compared to prior
-ST with PACs/PVCs on review of tele overnight
-PT/OT as able
-follow up with team at [facility]
Progress Note - Insurance Verify Rep
Subjective
Date of Service: September 12, 2024
reports weakness/dizziness this AM
Objective
Labs:
09/12/24 06:58
09/12/24 06:58
Labs
Hgb 10.0 g/dL (13.0-18.0) L 09/12/24 06:58
Hct 27.6 % (39.0-52.0) L 09/12/24 06:58
Plt Count 27 10^3/uL (130-400) L* D 09/12/24 06:58
Sodium 139 mmol/L (135-145) 09/12/24 06:58
Potassium 3.5 mmol/L (3.5-5.1) 09/12/24 06:58
BUN 35 mg/dl (9-20) H 09/12/24 06:58
Creatinine 1.0 mg/dL (0.7-1.3) 09/12/24 06:58
Glucose 122 mg/dl (70-99) H 09/12/24 06:58
Vital Signs and I&O:
Vital Signs
Temp Pulse Resp BP Pulse Ox
97.4 F 101 18 129/92 98
09/12/24 08:23 09/12/24 08:38 09/12/24 08:38 09/12/24 08:23 09/12/24 08:38
Vital Signs
Temp Pulse Resp BP Pulse Ox
97.4 F 101 18 129/92 98
09/12/24 08:23 09/12/24 08:38 09/12/24 08:38 09/12/24 08:23 09/12/24 08:38
Intake & Output
09/10/24 09/11/24 09/12/24 09/13/24
07:59 07:59 07:59 07:59
Intake Total 1330 / 1330
Output Total 1300 / 1300 3450 / 3450
Balance -1300 / -1300 -2120 / -2120
Physical Exam
Physical Exam
GEN: No distress, awake, alert, oriented x3. chronically ill appearing
HEENT: supple, anicteric, mmm, eomi
LUNGS: CTA B/L, no wheezes/rales
CV: Reg and tachy, S1/S2, no murmur
ABD: soft, BS+, NT/ND
EXT: No cyanosis, clubbing. 1+ edema of LLE. 2+ edema of RLE
NEURO: Gross non-focal
SKIN: Warm, pink, dry. No rash. Ecchymoses of B/L UE
--- NOTE | 2024-09-12 10:47 | W.PN.HOSP.TC ---
Addendum entered and electronically signed by Andrew Youngblood MD 09/12/24 11:47:
Physical Exam
NAD, resting comfortably in bed
Scleral anicteric
Moist mucous membranes
No JVD
CTA bilateral
Normal S1-S2 no murmurs
Soft nontender nondistended bowel sounds active
-Thompson - Indwelling bag with yellow urine
No peripheral pitting edema, echymosis on UE
Moves extremities spontaneously, LE wrapped in blue and titghlty with Bobo bangage
AAOx3
Assessment and Plan
Lower extremity swelling
-S/p IV diuretic one-time dose with good urinary output
-Currently p.o. diuretics, will hold
-2D echocardiogram, EF 65-70%
-BNP 550 per reference range of institution less than 900 is not consistent with heart failure
-Keep Bobo bandage and wrapped elevated
-Hematology/oncology believes potentially related to axatilimab
Labile BP
-Potentially volume down after receiving 1 dose of IV diuretic, continued on p.o. diuretics, 2 L urinary output with diuresis
-Suspect he is likely volume down, hold diuretics
-Give 500cc bolus, if still low and symptomatic then will give additional 250
-Repeat BP after
-Monitor on telemetry
-Check EKG, personally reviewed sinus tachycardia with PACs
Pancytopenia
-Known history of AML s/p bone marrow transplant, enuhi-njkvma-tzxj disease
-Thrombocytopenic, 19. Check peripheral smear.
-If actively bleeding transfuse platelets of less than 30,000
-Without active bleeding transfuse platelets of less than 10,000
-If hemoglobin less than 7 transfuse PRBC
-Hematology/oncology following
-Anemia, macrocytic/megaloblastic with hemoglobin 10.0, MCV 109.4. Check B12 folate
Diabetes
-A1c 7.2
-Sliding scale
-Accu-Cheks
-Goal blood glucose 140-180
-Carb controlled diet
Chronic Thompson
-Placed 1 week ago at [facility]
-Outpatient urology follow-up
Wound care/Skin tears
-Plan: Vaseline gauze and dry dressing to arms and R knee. ABD pads under Bobo wraps knee high to legs. Air chair cushion placed under intact heels to protect. Instructed patient to take air cushion home upon discharge to use when sitting. Patient
currently just purchased a donut type cushion, recommended not to use donut, air cushion more appropriate. - Per wound care
Original Note:
Today's Communication/Plan
-
Hold Lasix, give 500 cc bolus, reevaluate lightheadedness
Assessment / Plan
Assessment / Plan
Bilateral lower extremity edema secondary to recent IV fluids
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
- One dose 20mg IV lasix in ED
- Echo 65-70% EF
-Unlikely cardiac in nature
- Axatilimab has a 13% incidence of edema, and additional IVF likely also contributed per hemeonc
-Today hold Lasix, 500 cc bolus of fluid for lightheadedness
- wrapping of legs
� PT OT
Lightheadedness
-Likely noncardiac edema nature
- Orthostatics unable to complete as patient was unable to stand
- EKG sinus tachycardia with PACs
- On tele
� Today, Lasix held and 500 cc bolus given
� Cardiology aware and following
- Monitor
AML status post bone marrow transplant
� Continue prophylactic antibiotics, posaconazole, acyclovir
� Continue Rezurock and Jakaf
- Hemeonc appreciated
Acute on chronic thrombocytopenia
� Baseline 50s.
- ED 40 -> 19 ->27 today
- Monitor
-Transfuse if less than [id number] per heme-onc
- Peripheral blood smear pending
Chronic tkust-pxrgkf-owhh disease with pulmonary involvement
History of asbestosis/pulmonary fibrosis
� Received immunodiffusion for GVHD
�Continue prednisone which has been weaned off
- Continue budesonide/formoterol
Macrocytic anemia
- Suspected due to bone marrow transplant medications
- Hemoglobin 10 (baseline) MCV 109
- B12 and folate wnl
BPH
- Continue tamsulosin
- Came in with gopi due to retaining a week ago
Borderline diabetes
� hga1c 7.2
- Sliding scale insulin
Hx essential HTN - no current meds
Hx Hyperlipidemia - no current meds
Anticipated Discharge: 24 - 48 hours
Subjective/Interval History
-
Date of Service: September 12, 2024
Feels very lightheaded as if his head is floating. Denies dizziness, heart palpitations, chest pain, nausea, vomiting. Just feels 'weird.' Hoping fluid will help.
Objective Data
-
Labs:
Laboratory Results
09/11/24 09/12/24
07:12 06:58
WBC 4.0 L 4.2 L
Hgb 10.0 L 10.0 L
Hct 27.8 L 27.6 L
Plt Count 19 L* D 27 L* D
Sodium 139
Potassium 3.5
Chloride 99
Carbon Dioxide 31 H
BUN 35 H
Creatinine 1.0
Glucose 122 H
Calcium 9.2
Vital Signs:
Vital Signs
Temp Pulse Resp BP Pulse Ox
97.4 F 101 18 129/92 98
09/12/24 08:23 09/12/24 08:38 09/12/24 08:38 09/12/24 08:23 09/12/24 08:38
I&O
09/11/24 09/12/24 09/13/24
06:59 06:59 06:59
Intake Total 1330 / 1330
Output Total 1300 / 1300 3450 / 3450
Balance -1300 / -1300 -2119 /
Review of Systems
-
History Source: Patient
EENT: Reports Other (Lightheadedness, does not describe his dizziness)
Respiratory: Reports Cough and Trouble Breathing (At baseline)
Cardiac: Reports No Symptoms; Denies Chest Pain, Diaphoresis or Palpitations
Abdomen/GI: Reports No Symptoms
Genitourinary: Reports No Symptoms
Neuro: Reports No Symptoms
Physical Exam
-
General: Appears in Distress
Respiratory: Clear to Auscultation
Cardiac: Regular Rhythm and S1/S2
GI: Soft and Nontender
Musculoskeletal: Edema, Right Lower Extrem and Edema, Left Lower Extrem
Skin: Warm
Neuro: AO x 3
Psych: Agitated
[2024-09-12] MEDS: NSS 250 IV ×2 (11:42→21:33)
[2024-09-12 12:02] LABS: Glucose - Point of Care 203 mg/dl (70-99)
[2024-09-12] MEDS: NOVOLOG FLEXPEN-LOW RESISTANCE 2 UNITS SC (12:42)
--- NOTE | 2024-09-12 14:38 | CM ---
CM reviewed chart, met with patient bedside. Patient reports not feeling well today. PT attempted to see patient, unable due to patient feeling dizzy/lightheaded. Patient history with [facility], will send referral if VN needed upon
discharge. CM will continue to follow for all discharge planning needs.
Plan; Home with [facility] likely.
[2024-09-12 15:19] LABS: Glucose - Point of Care 124 mg/dl (70-99)
--- NOTE | 2024-09-12 16:23 | W.PN.UPDATE ---
Update Note
Progress Note Update
-Nurse texted letting us know that pts BP was 79/66 and still feeling lightheaded and 'floating' despite receiving a total of 750 cc of fluids today.
-Went up to evaluate patient. Repeat BP showed 110/82.
-Patient described symptoms like his head is floating and there is a shadow that comes over him.
-Closing his eyes and moving his head back and forth helps.
-Sitting up makes it worse.
-Sitting up also makes him feel short of breath.
-He denies any chest pain, heart palpitations, dizziness, N/V, diaphoresis.
-Blood glucose was 124.
-Physical exam was benign.
No nystagmus on head impulse test, no focal neurological deficits noted. Lungs clear, S1S2 no murmurs, no carotid bruits.
-Cardiology does not believe this is cardiac in nature and recommended ENT consult if no improvement.
-Patient noted to be anxious about symptoms. He noted that he felt confined in the room and speaking to us made him feel much better. We spoke to him about his medical history at great length which appeared to help calm him. He denies a PMHx of
anxiety.
-Plan to get repeat chest x-ray to evaluate if there is any fluid in lungs. Unlikely, but if HFpEF, after 750cc fluid will likely be noted. If no fluid in lungs, consider giving another bolus of fluid. Nocturnal pulse ox to evaluate for sleep apnea.
If not improvement, will consider ENT consult. PT also asked to further evaluate for vertigo.
Most likely cause is orthostatic hypotension. Will continue to monitor.
[2024-09-12] MEDS: NOVOLOG FLEXPEN-LOW RESISTANCE SC (16:36)
[2024-09-12] MEDS: LYRICA PO (21:00)
[2024-09-12] MEDS: FLOMAX 0.4 MG PO (21:00)
[2024-09-12] MEDS: ERYTHROMYCIN 0.5% OPHTHALMIC OINTMENT 1 APPLIC BOTH EYES (21:00)
[2024-09-12 21:41] LABS: Glucose - Point of Care 268 mg/dl (70-99)
[2024-09-13] MEDS: XOPENEX 1.25 MG INHALANT SOLUTION INH (00:38)
--- NOTE | 2024-09-13 00:39 | W.PN.UPDATE ---
Update Note
Progress Note Update
-Patient complained of SOB, SPO2 97% on 2L of o2, bp 104/65 hr 104, afebrile. Denies chest pain.
- Diminished lung sound on exam, abg, cbc, bmp, pro bnp, and covid ordered.
-Xoponox PRN for SOB.
-Chest x-ray done this afternoon and shows compatible with asbestos related pleural disease.
-CBC, BMP, mag, abg unremarkable. Slightly elevation in Pro BNP from 550 to 666 today.
-Patient feels comfortable after receiving nebs.
[2024-09-13 00:44] LABS: B.E. 3.2 mmol/L; HCO3 27.9 mmol/L (21-28); O2 Saturation % 99.3 % (94-98); O2 Therapy 2; PCO2 42 mmHg (35-48); PO2 127 mmHg (83-108); pH 7.43 (7.35-7.45)
[2024-09-13 01:04] LABS: % Basophils 0.2 % (0-2); % Eosinophils 0.2 % (0-6); % Immature Granulocytes 4.2 % (0-0.5); % Lymphocytes 36.2 % (20.5-51.1); % Monocytes 11.2 % (1.7-9.3); Absolute Immature Granulocytes 0.2 10^3/uL (0-0.05); Absolute Lymphocytes 1.6 10^3/uL (1.2-3.4); Absolute Monocytes 0.5 10^3/uL (0.1-0.6); Absolute Neutrophils 2.1 10^3/uL (1.4-6.5); Hematocrit 25.6 % (39.0-52.0); Mean Corp Hgb Conc. 35.2 g/dL (33.0-37.0); Mean Corpuscular Hgb 38.5 pg (27.0-31.0); Mean Corpuscular Volume 109.4 fL (80.0-94.0); Nucleated Red Blood Cells % 2.3 % (-); Platelet Count 33 10^3/uL (130-400); Red Blood Cell Count 2.34 10^6/uL (4.70-6.10); Red Cell Dist. Width 17.5 % (11.5-14.5); White Blood Cell Count 4.3 10^3/uL (4.8-10.8)
[2024-09-13 01:18] LABS: COVID-19 Antigen Negative (Negative)
[2024-09-13 01:20] LABS: Blood Urea Nitrogen 35 mg/dl (9-20); Carbon Dioxide 28 mmol/L (22-30); Chloride 102 mmol/L (98-107); Estimated Creatinine Clearance 85 ml/min; Glucose 111 mg/dl (70-99); Magnesium 1.7 mg/dl (1.6-2.3); Potassium 4.1 mmol/L (3.5-5.1); Sodium 140 mmol/L (135-145); eGFR > 60.00
[2024-09-13 01:29] LABS: NT-proBNP 666 pg/ml
[2024-09-13 01:38] LABS: Anisocytosis 1+; Macrocytosis 1+; Normal RBC Morphology No; Polychromasia Occasional
[2024-09-13 01:41] LABS: Ovalocytes Occasional; Tear Drop Red Blood Cells Occasional
--- NOTE | 2024-09-13 02:15 | PTCARENOTE ---
At 2350 pt called and complained of SOB, pt stated 'I can't breath like this for the next 6 hours, I'm huffing and puffing, I can't catch my breath'. Pt denied chest pain, dizziness or nausea. Nocturnal pulse ox was intact at the time for sleep
apnea study. 97% RA. Vitals signs were stable. Pt noted to be SOB, breathing heavily.This RN offered repositioning, adding pillow behind the head, elevating HOB, and supplemental O2, which pt declined.This RN called in Charge Nurse Kathleen for further
assessment, with the help of JARROD Wang, pt agreed with supplemental O2 at 1205. Respiratory Therapist Yudi was notified. Gloria Marquez RECEIVING ROOM CLERK notified and at bedside, labs ordered and obtained. Pt resting comfortably on 2L O2. Assessment ongoing.
[2024-09-13 03:00] VITALS: BP 107/75
[2024-09-13 05:16] VITALS: BMI 36.6
--- NOTE | 2024-09-13 05:32 | RESPNOTE ---
PT was placed on the Nocturnal Pulse Oximetry study at 2325 without incident. At 0010, PT became extremely SOb and had to be placed on 2 L O2 by the RN. PT had missed a dose of lasix, and was probably overloaded. [facility] [facility] TECHNICIAN came up to assess the PT and
ordered a neb tx and a ABG. PT was stuck for an ABG at 0030, and PT also received a nebulizer treatment of Xopenex 1.25 mg at 0040. PT finished out the Nocturnal Pulse Ox at 0515. Study may have to be repeated.
[2024-09-13 07:10] VITALS: BP 114/82
[2024-09-13 07:23] LABS: Glucose - Point of Care 132 mg/dl (70-99)
[2024-09-13] MEDS: NOVOLOG FLEXPEN-LOW RESISTANCE SC (07:34)
[2024-09-13 07:40] LABS: Hematocrit 26.3 % (39.0-52.0); Hemoglobin 9.2 g/dL (13.0-18.0); Mean Corpuscular Hgb 38.5 pg (27.0-31.0); Mean Platelet Volume 12.7 fL (7.4-10.4); Platelet Count 22 10^3/uL (130-400); Red Blood Cell Count 2.39 10^6/uL (4.70-6.10); Red Cell Dist. Width 17.3 % (11.5-14.5); White Blood Cell Count 3.6 10^3/uL (4.8-10.8)
[2024-09-13 07:45] LABS: ALT (SGPT) 39 U/L (0-50); AST (SGOT) 36 U/L (17-59); Albumin 3.3 g/dl (3.5-5.0); Alkaline Phosphatase 55 U/L (38-126); Blood Urea Nitrogen 35 mg/dl (9-20); Carbon Dioxide 32 mmol/L (22-30); Chloride 100 mmol/L (98-107); Estimated Creatinine Clearance 85 ml/min; Glucose 122 mg/dl (70-99); Potassium 3.8 mmol/L (3.5-5.1); Sodium 140 mmol/L (135-145); Total Bilirubin 0.5 mg/dl (0.2-1.3); Total Protein 5.4 g/dl (6.3-8.2); eGFR > 60.00
[2024-09-13] MEDS: SYMBICORT 160/4.5 MCG INHALER 2 PUFF INH ×2 (08:12→19:52)
[2024-09-13] MEDS: LYRICA 100 MG PO ×2 (08:37→21:15)
[2024-09-13] MEDS: THERAGRAN 1 TABLET PO (08:37)
[2024-09-13] MEDS: GLUCOPHAGE 500 MG PO ×2 (08:37→17:15)
[2024-09-13] MEDS: PEPCID 20 MG PO ×2 (08:37→21:15)
[2024-09-13] MEDS: LEVAQUIN 500 MG PO (08:37)
[2024-09-13] MEDS: DELTASONE 30 MG PO (08:37)
[2024-09-13] MEDS: VITAMIN C 1000 MG PO (08:37)
[2024-09-13] MEDS: LYRICA 50 MG PO (08:37)
[2024-09-13] MEDS: NON-FORMULARY ITEM 300 MG PO (08:39)
[2024-09-13] MEDS: NON-FORMULARY ITEM 5 MG PO ×2 (08:40→21:16)
[2024-09-13] MEDS: NON-FORMULARY ITEM 200 MG PO (08:40)
[2024-09-13] MEDS: VITAMIN D3 (cholecalciferol) 25 MCG PO (08:42)
[2024-09-13] MEDS: ZOVIRAX 800 MG PO ×2 (08:44→21:16)
--- NOTE | 2024-09-13 10:48 | W.PN.ONC ---
Today's Communication / Plan
-
Axatilimab has a 13% incidence of edema
Gentle diuresis per primary team, elevation, wrapping of legs
Thrombocytopenia is chronic per patient
Monitor CBC regularly, watch for bleeding. Transfuse PLT < 15K with leukoreduced irradiated products.
On multiple medications for GVHD
Further mgmt of cGVHD per Dr Regalado at [facility]
Impression
Impression
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
chronic GVHD, involving lungs, skin, mouth, eyes - recently started axatilimab
chronic thrombocytopenia (often in the 40-50 range)
Dyspnea
Subjective/Objective
Subjective/Objective
Patient sitting in a chair complaining of severe dyspnea
Vital Signs:
Vital Signs
Temp Pulse Resp BP Pulse Ox
97.8 F 102 16 114/82 99
09/13/24 07:10 09/13/24 08:17 09/13/24 08:17 09/13/24 07:10 09/13/24 08:17
Awake alert
Regular
Decreased breath sounds in the bases
Bilateral edema with VIVIAN wrap
Lab Results:
Laboratory Data
WBC 3.6 10^3/uL (4.8-10.8) L 09/13/24 06:35
Hgb 9.2 g/dL (13.0-18.0) L 09/13/24 06:35
Plt Count 22 10^3/uL (130-400) L* D 09/13/24 06:35
eGFR > 60.00 09/13/24 06:35
[2024-09-13 11:19] VITALS: BP 137/89
--- NOTE | 2024-09-13 11:23 | W.PN.HOSP.TC ---
Addendum entered and electronically signed by Andrew Youngblood MD 09/13/24 15:20:
Physical Exam
NAD, resting comfortably in bed
Scleral anicteric
Moist mucous membranes
No JVD
CTA bilateral
Normal S1-S2 no murmurs
Soft nontender nondistended bowel sounds active
-Thompson - Indwelling bag with yellow urine
No peripheral pitting edema, ecchymosis on UE
Moves extremities spontaneously, LE wrapped in blue and titghlty with Bobo bangage
AAOx3
Assessment and Plan
Lower extremity swelling
-S/p IV diuretic one-time dose with good urinary output
-Currently p.o. diuretics, will hold
-2D echocardiogram, EF 65-70%
-BNP 550 per reference range of institution less than 900 is not consistent with heart failure
-Keep Bobo bandage and wrapped elevated
-Hematology/oncology believes potentially related to axatilimab
Labile BP
-Potentially volume down after receiving 1 dose of IV diuretic, continued on p.o. diuretics, 2 L urinary output with diuresis
-Suspect he is likely volume down, hold diuretics
-Monitor on telemetry
-Check EKG, personally reviewed sinus tachycardia with PACs
-Start abd binder
Pancytopenia
-Known history of AML s/p bone marrow transplant, ikdde-[id number]-cczj disease
-Thrombocytopenic, 19. Check peripheral smear.
-If actively bleeding transfuse platelets of less than 30,000
-Without active bleeding transfuse platelets of less than 10,000
-If hemoglobin less than 7 transfuse PRBC
-Hematology/oncology following
-Anemia, macrocytic/megaloblastic with hemoglobin 10.0, MCV 109.4. Check B12 folate
Diabetes
-A1c 7.2
-Sliding scale
-Accu-Cheks
-Goal blood glucose 140-180
-Carb controlled diet
Chronic Thompson
-Placed 1 week ago at [facility]
-Outpatient urology follow-up
Wound care/Skin tears
-Plan: Vaseline gauze and dry dressing to arms and R knee. ABD pads under Bobo wraps knee high to legs. Air chair cushion placed under intact heels to protect. Instructed patient to take air cushion home upon discharge to use when sitting. Patient
currently just purchased a donut type cushion, recommended not to use donut, air cushion more appropriate. - Per wound care
Will transfer to [facility] under the Allo transplant service at [facility] with Dr. Cassandra Benitez.
Original Note:
Today's Communication/Plan
-
Continue to hold Lasix, fluids for low BP, ENT evaluation for lightheadedness, hydroxyzine for anxiety trial, discharge pending patient's symptoms improving
Assessment / Plan
Assessment / Plan
Bilateral lower extremity edema secondary to recent IV fluids
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
- One dose 20mg IV lasix in ED
- Echo 65-70% EF
- Unlikely cardiac in nature
- Axatilimab has a 13% incidence of edema, and additional IVF likely also contributed per hemeonc
-Cont to hold lasix see below
- wrapping of legs
� PT OT
Lightheadedness
-Likely noncardiac edema nature per cards
- Orthostatics unable to complete as patient was unable to stand
- EKG sinus tachycardia with PACs
- On tele
� Lasix held and fluid given
- Xopenex last night helped
- COVID-negative
- ENT consulted
- Hydroxyzine trial for anxiety
� Cardiology aware and following
- Monitor
AML status post bone marrow transplant
� Continue prophylactic antibiotics, posaconazole, acyclovir
� Continue Rezurock and Jakaf
- Hemeonc appreciated
Pancytopenia
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
- ptl 27 ->22 today
-Transfuse if less than [id number] per heme-onc
- Peripheral blood smear unremarkable for acute etiology
-Macrocytic anemia with B12 and folate wnl
- hg <7 transfuse
Chronic zimhl-[id number]-bbkr disease with pulmonary involvement
History of asbestosis/pulmonary fibrosis
� Received immunodiffusion for GVHD
�Continue prednisone which has been weaned off
- Continue budesonide/formoterol
BPH
- Continue tamsulosin
- Came in with gopi due to retaining a week ago
Borderline diabetes
� hga1c 7.2
- Sliding scale insulin
Hx essential HTN - no current meds
Hx Hyperlipidemia - no current meds
Anticipated Discharge: Within 24 hours
Subjective/Interval History
-
Date of Service: September 13, 2024
Objective Data
-
Labs:
Laboratory Results
09/13/24 09/13/24 09/13/24
00:36 00:48 06:35
WBC 4.3 L 3.6 L
Hgb 9.0 L 9.2 L
Hct 25.6 L 26.3 L
Plt Count 33 L D 22 L* D
HCO3 27.9
Sodium 140 140
Potassium 4.1 3.8
Chloride 102 100
Carbon Dioxide 28 32 H
BUN 35 H 35 H
Creatinine 0.9 0.9
Glucose 111 H 122 H
Calcium 9.0 9.0
Total Bilirubin 0.5
AST 36
ALT 39
Alkaline Phosphatase 55
Vital Signs:
Vital Signs
Temp Pulse Resp BP Pulse Ox
97.7 F 112 24 137/89 100
09/13/24 11:19 09/13/24 11:19 09/13/24 11:19 09/13/24 11:19 09/13/24 11:19
I&O
09/12/24 09/13/24 09/14/24
06:59 06:59 06:59
Intake Total 1330 / 1330 840 / 840
Output Total 3450 / 3450 700 / 700
Balance -2120 / -2120 140 / 140
Review of Systems
-
History Source: Patient
EENT: Reports Other (Lightheadedness, floating sensation)
Respiratory: Reports Trouble Breathing (At baseline)
Cardiac: Reports No Symptoms
Abdomen/GI: Reports No Symptoms
Neuro: Reports No Symptoms
Physical Exam
-
General: Appears in Distress
Respiratory: Clear to Auscultation
Cardiac: Regular Rhythm and S1/S2
GI: Soft, Nontender, Nondistended and Normal Bowel Sounds
Musculoskeletal: Edema, Right Lower Extrem and Edema, Left Lower Extrem
Skin: Warm
Neuro: AO x 3
Psych: Anxious
[2024-09-13 11:36] LABS: Glucose - Point of Care 201 mg/dl (70-99)
[2024-09-13] MEDS: ATARAX 10 MG PO (12:03)
[2024-09-13] MEDS: NOVOLOG FLEXPEN-LOW RESISTANCE 2 UNITS SC ×2 (12:03→17:15)
--- NOTE | 2024-09-13 14:24 | CM ---
CM reviewed chart, per [employer]- patient qualifies for nocturnal O2. Patient seen bedside, requesting transfer to [facility]- TT to Resident to make aware. CM will continue to follow for all discharge planning needs.
Plan; patient requesting to transfer to [facility].
[2024-09-13 15:20] VITALS: BP 97/70
[2024-09-13 16:38] LABS: Glucose - Point of Care 205 mg/dl (70-99)
--- NOTE | 2024-09-13 16:38 | CON.MD ---
Consultation - Medical
-
dictated.
dizziness yesterday, improved today, very likely cerebrovascular insufficiency from combination of anemia, hypotension, hypovolemia, hypoxia.
[2024-09-13 19:20] VITALS: BP 107/72
[2024-09-13 21:11] LABS: Glucose - Point of Care 104 mg/dl (70-99)
[2024-09-13] MEDS: LYRICA PO (21:14)
[2024-09-13] MEDS: FLOMAX 0.4 MG PO (21:16)
[2024-09-13] MEDS: ERYTHROMYCIN 0.5% OPHTHALMIC OINTMENT 1 APPLIC BOTH EYES (21:16)
[2024-09-13 23:25] VITALS: BP 97/66
[2024-09-14] VITALS (7 sets, daily range): BP systolic 96–120; BP diastolic 53–79; PULSE 97–116; O2SAT 96–97; BMI 36.0
[2024-09-14 07:25] LABS: Glucose - Point of Care 125 mg/dl (70-99)
[2024-09-14] MEDS: NOVOLOG FLEXPEN-LOW RESISTANCE SC ×2 (07:36→12:44)
[2024-09-14 07:46] LABS: Hematocrit 26.9 % (39.0-52.0); Mean Corp Hgb Conc. 33.5 g/dL (33.0-37.0); Mean Corpuscular Hgb 39.3 pg (27.0-31.0); Mean Corpuscular Volume 117.5 fL (80.0-94.0); Mean Platelet Volume 12.1 fL (7.4-10.4); Platelet Count 20 10^3/uL (130-400); Red Blood Cell Count 2.29 10^6/uL (4.70-6.10); Red Cell Dist. Width 17.1 % (11.5-14.5); White Blood Cell Count 3.8 10^3/uL (4.8-10.8)
[2024-09-14 08:09] LABS: ALT (SGPT) 37 U/L (0-50); AST (SGOT) 33 U/L (17-59); Albumin 3.4 g/dl (3.5-5.0); Alkaline Phosphatase 53 U/L (38-126); Blood Urea Nitrogen 36 mg/dl (9-20); Calcium 9.1 mg/dl (8.4-10.2); Carbon Dioxide 28 mmol/L (22-30); Chloride 103 mmol/L (98-107); Estimated Creatinine Clearance 95 ml/min; Glucose 106 mg/dl (70-99); Potassium 3.7 mmol/L (3.5-5.1); Sodium 141 mmol/L (135-145); Total Bilirubin 0.5 mg/dl (0.2-1.3); Total Protein 5.4 g/dl (6.3-8.2); eGFR > 60.00
[2024-09-14] MEDS: SYMBICORT 160/4.5 MCG INHALER 2 PUFF INH ×2 (08:15→21:15)
[2024-09-14] MEDS: DELTASONE 30 MG PO (09:30)
[2024-09-14] MEDS: VITAMIN C 1000 MG PO (09:30)
[2024-09-14] MEDS: LEVAQUIN 500 MG PO (09:31)
[2024-09-14] MEDS: ZOVIRAX 800 MG PO ×2 (09:31→22:07)
[2024-09-14] MEDS: LYRICA 100 MG PO ×2 (09:31→22:06)
[2024-09-14] MEDS: LYRICA 50 MG PO (09:31)
[2024-09-14] MEDS: VITAMIN D3 (cholecalciferol) 25 MCG PO (09:31)
[2024-09-14] MEDS: PEPCID 20 MG PO ×2 (09:31→22:06)
[2024-09-14] MEDS: THERAGRAN 1 TABLET PO (09:31)
[2024-09-14] MEDS: GLUCOPHAGE 500 MG PO ×2 (09:31→17:26)
[2024-09-14] MEDS: BACTRIM DS 800 MG/160 MG 1 TABLET PO (09:33)
[2024-09-14] MEDS: NON-FORMULARY ITEM 5 MG PO ×2 (09:33→22:06)
[2024-09-14] MEDS: NON-FORMULARY ITEM 300 MG PO (09:34)
[2024-09-14] MEDS: NON-FORMULARY ITEM 200 MG PO (09:35)
[2024-09-14] MEDS: VITAMIN B-12 1000 MCG PO (09:41)
[2024-09-14] MEDS: ZITHROMAX 250 MG PO (09:41)
--- NOTE | 2024-09-14 11:21 | W.PN.HOSP.TC ---
Addendum entered and electronically signed by Andrew Youngblood MD 09/14/24 13:49:
Physical Exam
NAD, resting comfortably in bed
Scleral anicteric
Moist mucous membranes
No JVD
CTA bilateral
Normal S1-S2 no murmurs
Soft nontender nondistended bowel sounds active
-Nguyễn - Indwelling bag with yellow urine
No peripheral pitting edema, ecchymosis on UE
Moves extremities spontaneously, LE wrapped in blue and titghlty with Bobo bangage
AAOx3
Assessment and Plan
Lower extremity swelling
-S/p IV diuretic one-time dose with good urinary output
-Currently p.o. diuretics, will hold
-2D echocardiogram, EF 65-70%
-BNP 550 per reference range of institution less than 900 is not consistent with heart failure
-Keep Bobo bandage and wrapped elevated
-Hematology/oncology believes potentially related to axatilimab
Labile BP
-Potentially volume down after receiving 1 dose of IV diuretic, continued on p.o. diuretics, 2 L urinary output with diuresis
-Suspect he is likely volume down, hold diuretics
-Monitor on telemetry
-Check EKG, personally reviewed sinus tachycardia with PACs
-Start abd binder
Pancytopenia
-Known history of AML s/p bone marrow transplant, qesgi-wefttz-mdwu disease
-Thrombocytopenic, 19. Check peripheral smear.
-If actively bleeding transfuse platelets of less than 30,000
-Without active bleeding transfuse platelets of less than 10,000
-If hemoglobin less than 7 transfuse PRBC
-Hematology/oncology following
-Anemia, macrocytic/megaloblastic with hemoglobin 10.0, MCV 109.4. Check B12 folate
Diabetes
-A1c 7.2
-Sliding scale
-Accu-Cheks
-Goal blood glucose 140-180
-Carb controlled diet
Chronic Nguyễn
-Placed 1 week ago at [facility]
-Outpatient urology follow-up
Wound care/Skin tears
-Plan: Vaseline gauze and dry dressing to arms and R knee. ABD pads under Bobo wraps knee high to legs. Air chair cushion placed under intact heels to protect. Instructed patient to take air cushion home upon discharge to use when sitting. Patient
currently just purchased a donut type cushion, recommended not to use donut, air cushion more appropriate. - Per wound care
Will transfer to [place] under the Allo transplant service at [facility] with Dr. Cassandra Benitez.
Original Note:
Today's Communication/Plan
-
Transferred to [facility] pending bed availability
Assessment / Plan
Assessment / Plan
Bilateral lower extremity edema secondary to recent IV fluids
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
- One dose 20mg IV lasix in ED
- Echo 65-70% EF
- Unlikely cardiac in nature
- Axatilimab has a 13% incidence of edema, and additional IVF likely also contributed per hemeonc
- Transfer to [facility] per pts oncologist Dr. Millicent Yates
-Cont to hold lasix
- Abdominal wrap
- wrapping of legs
� Transfer to [facility] upon bed availability
Labile BP
- Potentially low volumes after diuretics, 2 L urinary output
� Hold diuretics
� On telemetry
� Start abdominal binder and continue lower extremity wraps
Lightheadedness
- Today feeling better
- Likely noncardiac edema nature per cards
- EKG sinus tachycardia with PACs
- On tele
� Lasix held and fluid given
- Xopenex helped
- COVID-negative
- ENT consulted
- Hydroxyzine trial for anxiety unsuccessful
� Cardiology aware and following
- Potential side effect of axatilimab
- Transfer to [facility] per pts oncologist Dr. Millicent Yates
- Monitor
AML status post bone marrow transplant
� Continue prophylactic antibiotics, posaconazole, acyclovir
� Continue Rezurock and Jakaf
- Hemeonc appreciated
Pancytopenia
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
-20 today
-Transfuse if less than 13875 per heme-onc
- Peripheral blood smear unremarkable for acute etiology
-Macrocytic anemia with B12 and folate wnl
- hg <7 transfuse
Chronic jjpko-swmowv-qpcs disease with pulmonary involvement
History of asbestosis/pulmonary fibrosis
� Received immunodiffusion for GVHD
�Continue prednisone which has been weaned off
- Continue budesonide/formoterol
BPH
- Continue tamsulosin
- Came in with nguyễn due to retaining a week ago
Borderline diabetes
� hga1c 7.2
- Sliding scale insulin
Wound care/skin tears
- Plan per wound care: Vaseline gauze and dry dressing to arms and R knee. ABD pads under Bobo wraps knee high to legs. Air chair cushion placed under intact heels to protect. Instructed patient to take air cushion home upon discharge to use when
sitting. Patient currently just purchased a donut type cushion, recommended not to use donut, air cushion more appropriate. - Per wound care
Hx essential HTN - no current meds
Hx Hyperlipidemia - no current meds
Anticipated Discharge: Today
Subjective/Interval History
-
Date of Service: September 14, 2024
Objective Data
-
Labs:
Laboratory Results
09/14/24
07:14
WBC 3.8 L
Hgb 9.0 L
Hct 26.9 L
Plt Count 20 L*
Sodium 141
Potassium 3.7
Chloride 103
Carbon Dioxide 28
BUN 36 H
Creatinine 0.8
Glucose 106 H
Calcium 9.1
Total Bilirubin 0.5
AST 33
ALT 37
Alkaline Phosphatase 53
Vital Signs:
Vital Signs
Temp Pulse Resp BP Pulse Ox
97.5 F 72 16 120/74 100
09/14/24 07:00 09/14/24 08:16 09/14/24 08:16 09/14/24 07:00 09/14/24 08:16
I&O
09/13/24 09/14/24 09/15/24
06:59 06:59 06:59
Intake Total 840 / 840 660 / 660
Output Total 700 / 700 750 / 750
Balance 140 / 140 -90 / -90
Review of Systems
-
History Source: Patient
EENT: Reports No Symptoms Reported
Respiratory: Reports Trouble Breathing (At baseline)
Cardiac: Reports No Symptoms
Abdomen/GI: Reports No Symptoms
Genitourinary: Reports No Symptoms
Musculoskeletal: Reports Other (Numbness in the right anterior thigh proximal to the knee)
Neuro: Reports No Symptoms and Other
Physical Exam
-
HEENT: Normocephalic
Respiratory: Clear to Auscultation
Cardiac: Regular Rhythm and S1/S2
GI: Soft, Nontender, Nondistended and Normal Bowel Sounds
Musculoskeletal: Edema, Right Lower Extrem, Edema, Left Lower Extrem and Other
Skin: Warm
Neuro: AO x 3 and Other (Decrease sensation in right anterior thigh proximal to the knee.)
Psych: Calm
--- NOTE | 2024-09-14 11:26 | W.PN.ONC2 ---
Documented by User: CM Sheets 09/14/24 12:06
Today's Communication / Plan
-
daily CBC
Impression
Impression
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
chronic GVHD, involving lungs, skin, mouth, eyes - recently started axatilimab
chronic thrombocytopenia (often in the 40-50 range)
Dyspnea
Plan
Plan
Current GVHD regimen as outlined by Dr. Lea -Jakafi 5mg bid (dose reduced for thrombocytopenia), prednisone 30mg daily, and belumosudil 200mg
Axatilimab has a 13% incidence of edema
Gentle diuresis per primary team, elevation, wrapping of legs
Thrombocytopenia is chronic per patient
Monitor CBC regularly, watch for bleeding. Transfuse PLT < 15K with leukoreduced irradiated products.
Further mgmt of cGVHD per Dr Lea et al at [place].
Subjective/Objective
Subjective
no new complaints
Vital Signs:
Vital Signs
Temp Pulse Resp BP Pulse Ox
97.5 F 72 16 120/74 100
09/14/24 07:00 09/14/24 08:16 09/14/24 08:16 09/14/24 07:00 09/14/24 08:16
Lab Results:
Laboratory Data
WBC 3.8 10^3/uL (4.8-10.8) L 09/14/24 07:14
Hgb 9.0 g/dL (13.0-18.0) L 09/14/24 07:14
Plt Count 20 10^3/uL (130-400) L* 09/14/24 07:14
eGFR > 60.00 09/14/24 07:14

Documented by User: Armen Wong MD 09/14/24 13:08
Plan
Plan
Current GVHD regimen as outlined by Dr. Lea -Jakafi 5mg bid (dose reduced for thrombocytopenia), prednisone 30mg daily, and belumosudil 200mg
Axatilimab has a 13% incidence of edema
Gentle diuresis per primary team, elevation, wrapping of legs
Thrombocytopenia is chronic per patient
Monitor CBC regularly, watch for bleeding. Transfuse PLT < 15K with leukoreduced irradiated products.
Further mgmt of cGVHD per Dr Lea et al at [place].
Oncology Addendum:
Patient seen and evaluated and agree w/ DIRECTOR MEDIA note and plan as outlined
-h/o AML s/p allo-SCT in 04/2023, currently without evidence of disease
-chronic GVHD, involving lungs, skin, mouth, eyes - recently started axatilimab
-now w/ worsening peripheral edema - gentle diuresis ongoing
-transfuse plts as per parameters
-transfer to [facility] when bed available
Will continue to follow with you.
[2024-09-14 12:34] LABS: Glucose - Point of Care 117 mg/dl (70-99)
--- NOTE | 2024-09-14 14:03 | CM ---
CM reviewed chart, patient transfer to [facility] when bed available. CM will continue to follow for all discharge planning needs.
Plan; transfer to [facility] when available.
--- NOTE | 2024-09-14 16:38 | PN.CDI ---
CDI
- -
CDI:
Physician Documentation Request
Admit Date: 09/13/24 17:14
Dear Doctor Ford/Resident ,
Please review the following and provide your response in the progress notes.
Clinical Indicators:
Pt admitted with LE edema /dizziness
Wound care note 09/11, ' Gluteal cleft and R buttock with stage 2 PI vs MASD, L buttock with denuded bleeding skin.... Pressure ulcer prevention measures reviewed with patient...'
Physician documentation of the type and location of wounds is required for compliant documentation. Based on the above clinical findings and your assessment, please provide the following in your progress note:
1. Location of the ulcer/wound, including laterality.
2. Type (etiology) of ulcer/wound:
- Pressure (decubitus) ulcer
- Non-Pressure ulcer
- Other
Use of terms such as suspected, likely, concern for, or probable (associated with a specific diagnosis that is being evaluated, monitored, or treated as if it exists) are acceptable and can be coded in the inpatient setting, when documented at the
time of discharge.
Thank you,
Lolita Can RN
CDI Specialist
[place] [facility]
Please use your independent medical judgment in providing your response.
*Source: National Pressure Ulcer Advisory Panel (NPUAP)
--- NOTE | 2024-09-14 16:42 | PN.CDI ---
CDI
- -
CDI:
Physician Documentation Request
Admit Date: 09/13/24 17:14
Dear Doctor Ford/Rsident,
Please review the following and provide your response in the progress notes.
Clinical Indicators:
Pt admitted with LE edema /dizziness/Pt with chronic vztif-qgflol-qmvi disease
Documented in the record, ' Pancytopenia Known history of AML s/p bone marrow transplant, aggxe-fwtjvz-xwpz disease...� Continue Rezurock and Jakaf..'
Oncology note 09/14, ' Current GVHD regimen as outlined by Dr. Lea -Jose Dafi 5mg bid (dose reduced for thrombocytopenia), prednisone 30mg daily, and belumosudil 200mg..'
Please provide the suspected etiology of the documented pancytopenia
Drug induced pancytopenia
Other pancytopenia ( please specify)
Use of terms such as suspected, likely, concern for, or probable (associated with a specific diagnosis that is being evaluated, monitored, or treated as if it exists) are acceptable and can be coded in the inpatient setting, when documented at the
time of discharge.
Thank you,
Lolita Can RN
CDI Specialist
[place] [facility]
Please use your independent medical judgment in providing your response.
[2024-09-14 17:07] LABS: Glucose - Point of Care 189 mg/dl (70-99)
[2024-09-14] MEDS: NOVOLOG FLEXPEN-LOW RESISTANCE 1 UNITS SC (17:26)
[2024-09-14 21:38] LABS: Glucose - Point of Care 155 mg/dl (70-99)
[2024-09-14] MEDS: LYRICA PO (21:59)
[2024-09-14] MEDS: ERYTHROMYCIN 0.5% OPHTHALMIC OINTMENT 1 APPLIC BOTH EYES (22:07)
[2024-09-14] MEDS: FLOMAX 0.4 MG PO (22:07)
[2024-09-15] VITALS (7 sets, daily range): BP systolic 105–133; BP diastolic 70–93; BMI 35.0
[2024-09-15 07:36] LABS: Hematocrit 27.1 % (39.0-52.0); Hemoglobin 9.5 g/dL (13.0-18.0); Mean Corp Hgb Conc. 35.1 g/dL (33.0-37.0); Mean Corpuscular Hgb 39.1 pg (27.0-31.0); Mean Corpuscular Volume 111.5 fL (80.0-94.0); Mean Platelet Volume 10.3 fL (7.4-10.4); Platelet Count 20 10^3/uL (130-400); Red Blood Cell Count 2.43 10^6/uL (4.70-6.10); White Blood Cell Count 3.9 10^3/uL (4.8-10.8)
[2024-09-15 07:37] LABS: ALT (SGPT) 36 U/L (0-50); AST (SGOT) 33 U/L (17-59); Albumin 3.5 g/dl (3.5-5.0); Alkaline Phosphatase 50 U/L (38-126); Blood Urea Nitrogen 32 mg/dl (9-20); Calcium 9.2 mg/dl (8.4-10.2); Carbon Dioxide 30 mmol/L (22-30); Chloride 100 mmol/L (98-107); Estimated Creatinine Clearance 107 ml/min; Glucose 105 mg/dl (70-99); Potassium 3.8 mmol/L (3.5-5.1); Sodium 138 mmol/L (135-145); Total Bilirubin 0.7 mg/dl (0.2-1.3); Total Protein 5.6 g/dl (6.3-8.2); eGFR > 60.00
[2024-09-15 07:54] LABS: Glucose - Point of Care 134 mg/dl (70-99)
[2024-09-15] MEDS: NOVOLOG FLEXPEN-LOW RESISTANCE SC ×2 (08:34→12:42)
[2024-09-15] MEDS: GLUCOPHAGE 500 MG PO ×2 (08:36→16:56)
[2024-09-15] MEDS: LYRICA 100 MG PO ×2 (08:36→21:27)
[2024-09-15] MEDS: VITAMIN C 1000 MG PO (08:36)
[2024-09-15] MEDS: LEVAQUIN 500 MG PO (08:36)
[2024-09-15] MEDS: PEPCID 20 MG PO ×2 (08:36→21:27)
[2024-09-15] MEDS: DELTASONE 30 MG PO (08:36)
[2024-09-15] MEDS: NON-FORMULARY ITEM 200 MG PO (08:37)
[2024-09-15] MEDS: THERAGRAN 1 TABLET PO (08:37)
[2024-09-15] MEDS: NON-FORMULARY ITEM 5 MG PO ×2 (08:38→21:28)
[2024-09-15] MEDS: NON-FORMULARY ITEM 300 MG PO (08:39)
[2024-09-15] MEDS: LYRICA PO ×3 (08:39→21:25)
[2024-09-15] MEDS: ZOVIRAX 800 MG PO ×2 (08:49→21:28)
[2024-09-15] MEDS: VITAMIN D3 (cholecalciferol) 25 MCG PO (08:50)
--- NOTE | 2024-09-15 10:12 | W.PN.HOSP.TC ---
Addendum entered and electronically signed by Andrew Youngblood MD 09/15/24 14:07:
pancytopenia is related to AML and GVHD in the setting of bone marrow transplant.
Gluteal cleft wound presengt on admit. Dry and intact
gluteal cleft and R buttock with stage 2 PI vs MASD, L buttock with denuded bleeding skin.
reports current bed comfortable and makes his buttocks less sore.
Original Note:
Today's Communication/Plan
-
stool cx
ivf
transfer to [place] Allo transplant service when bed available
Assessment / Plan
Assessment / Plan
Physical Exam
NAD, resting comfortably in bed
Scleral anicteric
Moist mucous membranes
No JVD
CTA bilateral
Normal S1-S2 no murmurs
Soft nontender nondistended bowel sounds active
-Thompson - Indwelling bag with yellow urine
No peripheral pitting edema, ecchymosis on UE
Moves extremities spontaneously, LE wrapped in blue and titghlty with Bobo bangage
AAOx3
Assessment and Plan
Lower extremity swelling
-S/p IV diuretic one-time dose with good urinary output
-Currently p.o. diuretics, will hold
-2D echocardiogram, EF 65-70%
-BNP 550 per reference range of institution less than 900 is not consistent with heart failure
-Keep Bobo bandage and wrapped elevated
-Hematology/oncology believes potentially related to axatilimab
Labile BP
-Potentially volume down after receiving 1 dose of IV diuretic, continued on p.o. diuretics, 2 L urinary output with diuresis
-Suspect he is likely volume down, hold diuretics
-Monitor on telemetry
-Check EKG, personally reviewed sinus tachycardia with PACs
-Start abd binder
Pancytopenia
-Known history of AML s/p bone marrow transplant, rpusy-lnpjxe-sckh disease
-Thrombocytopenic, 19. Check peripheral smear.
-If actively bleeding transfuse platelets of less than 30,000
-Without active bleeding transfuse platelets of less than 10,000
-If hemoglobin less than 7 transfuse PRBC
-Hematology/oncology following
-Anemia, macrocytic/megaloblastic with hemoglobin 10.0, MCV 109.4. Check B12 folate
Diabetes
-A1c 7.2
-Sliding scale
-Accu-Cheks
-Goal blood glucose 140-180
-Carb controlled diet
Chronic Thompson
-Placed 1 week ago at [facility]
-Outpatient urology follow-up
Diarrhea
-3 episode, reported as loose
-Will check CDiff
-If negative start immodium
-If postive start po vanc
Wound care/Skin tears
-Plan: Vaseline gauze and dry dressing to arms and R knee. ABD pads under Bobo wraps knee high to legs. Air chair cushion placed under intact heels to protect. Instructed patient to take air cushion home upon discharge to use when sitting. Patient
currently just purchased a donut type cushion, recommended not to use donut, air cushion more appropriate. - Per wound care
Will transfer to [place] under the Allo transplant service at [facility] with Dr. Cassandra Benitez
Anticipated Discharge: Within 24 hours
Subjective/Interval History
-
Date of Service: September 15, 2024
Seen and examined. No acute overnight events.
Now has diarrhea. 3 episodes. Loose.
States he has a history of diarrhea constipation. He takes Imodium and then gets constipated has a follow-up with [facility] and has diarrhea.
I informed him that since he is immunocompetent as would want to make sure there is no bacteria in his stool as precipitating this diarrhea. If negative then will start Imodium if positive will start antibiotics.
Objective Data
-
Labs:
Laboratory Results
09/15/24
06:19
WBC 3.9 L
Hgb 9.5 L
Hct 27.1 L
Plt Count 20 L*
Sodium 138
Potassium 3.8
Chloride 100
Carbon Dioxide 30
BUN 32 H
Creatinine 0.7
Glucose 105 H
Calcium 9.2
Total Bilirubin 0.7
AST 33
ALT 36
Alkaline Phosphatase 50
Vital Signs:
Vital Signs
Temp Pulse Resp BP Pulse Ox
97.5 F 64 18 114/75 96
09/15/24 07:00 09/15/24 07:00 09/15/24 07:00 09/15/24 07:00 09/15/24 07:00
I&O
09/14/24 09/15/24 09/16/24
06:59 06:59 06:59
Intake Total 660 / 660 120 / 120
Output Total 750 / 750 400 / 400
Balance -90 / -90 -280 / -280
[2024-09-15] MEDS: SYMBICORT 160/4.5 MCG INHALER INH ×2 (11:43→20:04)
[2024-09-15 12:24] LABS: Glucose - Point of Care 127 mg/dl (70-99)
[2024-09-15 16:52] LABS: Glucose - Point of Care 306 mg/dl (70-99)
[2024-09-15] MEDS: NOVOLOG FLEXPEN-LOW RESISTANCE 4 UNITS SC (16:56)
[2024-09-15 21:15] LABS: Glucose - Point of Care 172 mg/dl (70-99)
[2024-09-15] MEDS: FLOMAX 0.4 MG PO (21:27)
[2024-09-15] MEDS: ERYTHROMYCIN 0.5% OPHTHALMIC OINTMENT 1 APPLIC BOTH EYES (21:27)
[2024-09-16 03:00] VITALS: BP 145/85
[2024-09-16 06:00] VITALS: BMI 35.2
[2024-09-16 07:31] VITALS: BP 114/80
[2024-09-16] MEDS: SYMBICORT 160/4.5 MCG INHALER INH (07:48)
[2024-09-16 08:03] LABS: Glucose - Point of Care 118 mg/dl (70-99)
[2024-09-16] MEDS: NOVOLOG FLEXPEN-LOW RESISTANCE SC (08:06)
[2024-09-16] MEDS: THERAGRAN 1 TABLET PO (08:06)
[2024-09-16] MEDS: VITAMIN C 1000 MG PO (08:06)
[2024-09-16] MEDS: GLUCOPHAGE 500 MG PO ×2 (08:06→16:48)
[2024-09-16] MEDS: LEVAQUIN 500 MG PO (08:06)
[2024-09-16] MEDS: NON-FORMULARY ITEM 300 MG PO (08:07)
[2024-09-16] MEDS: NON-FORMULARY ITEM 200 MG PO (08:07)
[2024-09-16] MEDS: LYRICA PO (08:07)
[2024-09-16] MEDS: PEPCID 20 MG PO ×2 (08:07→21:32)
[2024-09-16] MEDS: NON-FORMULARY ITEM 5 MG PO ×2 (08:07→21:32)
[2024-09-16] MEDS: DELTASONE 30 MG PO (08:07)
[2024-09-16] MEDS: LYRICA 100 MG PO ×2 (08:07→21:31)
[2024-09-16] MEDS: IMODIUM 2 MG PO ×3 (09:57→22:45)
[2024-09-16] MEDS: VITAMIN D3 (cholecalciferol) 25 MCG PO (09:57)
[2024-09-16] MEDS: ZOVIRAX 800 MG PO ×2 (09:57→21:31)
[2024-09-16 12:17] LABS: Glucose - Point of Care 164 mg/dl (70-99)
[2024-09-16] MEDS: NOVOLOG FLEXPEN-LOW RESISTANCE 1 UNITS SC (12:17)
--- NOTE | 2024-09-16 12:26 | W.PN.HOSP.TC ---
Today's Communication/Plan
-
Pending transfer to [place]
Assessment / Plan
Assessment / Plan
Physical Exam
NAD, resting comfortably in bed
Scleral anicteric
Moist mucous membranes
No JVD
CTA bilateral
Normal S1-S2 no murmurs
Soft nontender nondistended bowel sounds active
-Thompson - Indwelling bag with yellow urine
No peripheral pitting edema, ecchymosis on UE
Moves extremities spontaneously, LE wrapped in blue and titghlty with Dori bangage
AAOx3
Assessment and Plan
Lower extremity swelling
-S/p IV diuretic one-time dose with good urinary output
-Currently p.o. diuretics, will hold
-2D echocardiogram, EF 65-70%
-BNP 550 per reference range of institution less than 900 is not consistent with heart failure
-Keep Dori bandage and wrapped elevated
-Hematology/oncology believes potentially related to axatilimab
Labile BP
-Potentially volume down after receiving 1 dose of IV diuretic, continued on p.o. diuretics, 2 L urinary output with diuresis
-Suspect he is likely volume down, hold diuretics
-Monitor on telemetry
-Check EKG, personally reviewed sinus tachycardia with PACs
-Start abd binder
Pancytopenia
-Known history of AML s/p bone marrow transplant, sxees-ptmupd-cggs disease
-Thrombocytopenic, 19. Check peripheral smear.
-If actively bleeding transfuse platelets of less than 30,000
-Without active bleeding transfuse platelets of less than 10,000
-If hemoglobin less than 7 transfuse PRBC
-Hematology/oncology following
-Anemia, macrocytic/megaloblastic with hemoglobin 10.0, MCV 109.4. Check B12 folate
Diabetes
-A1c 7.2
-Sliding scale
-Accu-Cheks
-Goal blood glucose 140-180
-Carb controlled diet
Chronic Thompson
-Placed 1 week ago at [facility]
-Outpatient urology follow-up
Diarrhea
-3 episode, reported as loose
-CDiff negative start immodium
Wound care/Skin tears
-Plan: Vaseline gauze and dry dressing to arms and R knee. ABD pads under Dori wraps knee high to legs. Air chair cushion placed under intact heels to protect. Instructed patient to take air cushion home upon discharge to use when sitting. Patient
currently just purchased a donut type cushion, recommended not to use donut, air cushion more appropriate. - Per wound care
Will transfer to [place] under the Allo transplant service at [facility] with Dr. Cassandra Benitez
Anticipated Discharge: Within 24 hours
Subjective/Interval History
-
Date of Service: September 16, 2024
Seen and examined.
Still having diarrhea. C. difficile negative. Asking to start loperamide
Objective Data
-
Vital Signs:
Vital Signs
Temp Pulse Resp BP Pulse Ox
98.4 F 89 18 114/80 97
09/16/24 07:31 09/16/24 07:31 09/16/24 07:31 09/16/24 07:31 09/16/24 07:31
I&O
09/15/24 09/16/24 09/17/24
06:59 06:59 06:59
Intake Total 120 / 120 1920 / 1920
Output Total 400 / 400 950 / 950
Balance -280 / -280 970 / 970
[2024-09-16 14:11] VITALS: BP 125/82
[2024-09-16 15:00] VITALS: BP 115/77
[2024-09-16 16:39] LABS: Glucose - Point of Care 218 mg/dl (70-99)
[2024-09-16] MEDS: NOVOLOG FLEXPEN-LOW RESISTANCE 2 UNITS SC (16:43)
[2024-09-16] MEDS: SYMBICORT 160/4.5 MCG INHALER 2 PUFF INH (19:19)
[2024-09-16 19:50] VITALS: BP 111/74
[2024-09-16] MEDS: FLOMAX 0.4 MG PO (21:31)
[2024-09-16] MEDS: ERYTHROMYCIN 0.5% OPHTHALMIC OINTMENT BOTH EYES (21:33)
[2024-09-16 22:34] LABS: Glucose - Point of Care 114 mg/dl (70-99)
[2024-09-16 23:35] VITALS: BP 116/69
[2024-09-17] VITALS (8 sets, daily range): BP systolic 111–134; BP diastolic 63–85; O2SAT 95–96; BMI 35.0
[2024-09-17] MEDS: SYMBICORT 160/4.5 MCG INHALER 2 PUFF INH ×2 (07:21→19:48)
[2024-09-17 08:39] LABS: Hematocrit 29.9 % (39.0-52.0); Hemoglobin 10.1 g/dL (13.0-18.0); Mean Corp Hgb Conc. 33.8 g/dL (33.0-37.0); Mean Corpuscular Hgb 39.1 pg (27.0-31.0); Mean Corpuscular Volume 115.9 fL (80.0-94.0); Platelet Count 18 10^3/uL (130-400); Red Blood Cell Count 2.58 10^6/uL (4.70-6.10); Red Cell Dist. Width 17.1 % (11.5-14.5); White Blood Cell Count 4.1 10^3/uL (4.8-10.8)
[2024-09-17 08:40] LABS: Glucose - Point of Care 187 mg/dl (70-99)
[2024-09-17] MEDS: NOVOLOG FLEXPEN-LOW RESISTANCE 1 UNITS SC (08:44)
[2024-09-17] MEDS: NON-FORMULARY ITEM 300 MG PO (08:45)
[2024-09-17] MEDS: NON-FORMULARY ITEM 5 MG PO ×2 (08:46→21:17)
[2024-09-17] MEDS: NON-FORMULARY ITEM 200 MG PO (08:47)
[2024-09-17] MEDS: GLUCOPHAGE 500 MG PO ×2 (08:49→16:52)
[2024-09-17] MEDS: DELTASONE 30 MG PO (08:49)
[2024-09-17] MEDS: LEVAQUIN 500 MG PO (08:49)
[2024-09-17] MEDS: PEPCID 20 MG PO ×2 (08:49→21:16)
[2024-09-17] MEDS: VITAMIN C 1000 MG PO (08:50)
[2024-09-17] MEDS: VITAMIN D3 (cholecalciferol) 25 MCG PO (08:50)
[2024-09-17] MEDS: THERAGRAN 1 TABLET PO (08:51)
[2024-09-17] MEDS: ZOVIRAX 800 MG PO ×2 (08:51→21:18)
[2024-09-17] MEDS: LYRICA 100 MG PO ×2 (08:51→21:16)
[2024-09-17] MEDS: BACTRIM DS 800 MG/160 MG 1 TABLET PO (09:11)
[2024-09-17] MEDS: VITAMIN B-12 1000 MCG PO (09:11)
[2024-09-17] MEDS: ZITHROMAX 250 MG PO (09:11)
--- NOTE | 2024-09-17 11:49 | W.PN.ONC ---
Today's Communication / Plan
-
Clinically stable. His edema is improved. He relates that shortness of breath to an unusual form of jneji-pjnrpj-oiwt disease, but is oxygenating well. Awaiting transfer to [facility].
Impression
Impression
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
chronic GVHD, involving lungs, skin, mouth, eyes - recently started axatilimab
chronic thrombocytopenia (often in the 40-50 range)
Dyspnea
Plan
Plan
Current GVHD regimen as outlined by Dr. Lea -Jakafi 5mg bid (dose reduced for thrombocytopenia), prednisone 30mg daily, and belumosudil 200mg
Axatilimab has a 13% incidence of edema
Gentle diuresis per primary team, elevation, wrapping of legs
Thrombocytopenia is chronic per patient
Monitor CBC regularly, watch for bleeding. Transfuse PLT < 15K with leukoreduced irradiated products.
Further mgmt of cGVHD per Dr Lea et al at [place].
Oncology Addendum:
Patient seen and evaluated and agree w/ DISTRICT MANAGER note and plan as outlined
-h/o AML s/p allo-SCT in 04/2023, currently without evidence of disease
-chronic GVHD, involving lungs, skin, mouth, eyes - recently started axatilimab
-now w/ worsening peripheral edema - gentle diuresis ongoing
-transfuse plts as per parameters
-transfer to [facility] when bed available
Will continue to follow with you.
Subjective/Objective
Subjective/Objective
His only real complaint is of ongoing shortness of breath, even though his O2 saturations are in the mid 90s on room air. He also notes a sore mouth, which he would like to use budesonide for, his family will bring it in from home. Physical
examination is remarkable for diminished breath sounds. Heart tones are unremarkable.
Vital Signs:
Vital Signs
Temp Pulse Resp BP Pulse Ox
97.6 F 82 17 118/67 95
09/17/24 07:00 09/17/24 07:24 09/17/24 07:24 09/17/24 07:00 09/17/24 07:24
Lab Results:
Laboratory Data
WBC 4.1 10^3/uL (4.8-10.8) L 09/17/24 08:11
Hgb 10.1 g/dL (13.0-18.0) L 09/17/24 08:11
Plt Count 18 10^3/uL (130-400) L* 09/17/24 08:11
eGFR > 60.00 09/15/24 06:19
--- NOTE | 2024-09-17 13:04 | CM ---
CM reviewed chart, patient transfer to [facility] when bed available. CM will continue to follow for all discharge planning needs.
Plan; transfer to [facility] when available.
[2024-09-17 13:49] LABS: Glucose - Point of Care 148 mg/dl (70-99)
[2024-09-17] MEDS: NOVOLOG FLEXPEN-LOW RESISTANCE SC (13:56)
--- NOTE | 2024-09-17 14:01 | W.PN.HOSP.TC ---
Addendum entered and electronically signed by Fili Chavez MD 09/17/24 15:43:
Seen and examined by me independently in collaboration with the medical liaison Esme.
Lab data and imaging data reviewed.
Addendum as below :
Medically stable for transfer to [facility] for further tertiary level of care. Await bed availability.
Original Note:
Today's Communication/Plan
-
Transfer to [facility] when bed available
Assessment / Plan
Assessment / Plan
Bilateral lower extremity edema secondary to recent IV fluids
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
- One dose 20mg IV lasix in ED
- Echo 65-70% EF
- Unlikely cardiac in nature
- Axatilimab has a 13% incidence of edema, and additional IVF likely also contributed per hemeonc
- wrapping of legs
- Significant improvement over weekend
� PT OT
Labile BP/lightheadedness
-Potentially volume down after receiving 1 dose of IV diuretic, continued on p.o. diuretics, 2 L urinary output with diuresis
-Hold lasix
-Monitor on telemetry
-EKG sinus tachycardia with PACs
-Start abd binder
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
-Today ptl 18.
- Peripheral smear unremarkable for acute etiology
-If actively bleeding transfuse platelets of less than 30,000
-Without active bleeding transfuse platelets of less than 15,000 per hemeonc
-If hemoglobin less than 7 transfuse PRBC
-Hematology/oncology following
-Anemia, macrocytic/megaloblastic with hemoglobin 10.0, MCV 109.4. B12 folate within normal limits
Diabetes
-A1c 7.2
-Sliding scale
-Accu-Cheks
-Goal blood glucose 140-180
-Carb controlled diet
Chronic Thompson
-Placed 2 week ago at [facility]
-Outpatient urology follow-up
Diarrhea
-3 episode, reported as loose
-CDiff negative start immodium
Wound care/Skin tears. 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
-Plan: Vaseline gauze and dry dressing to arms and R knee. ABD pads under Bobo wraps knee high to legs. Air chair cushion placed under intact heels to protect. Instructed patient to take air cushion home upon discharge to use when sitting. Patient
currently just purchased a donut type cushion, recommended not to use donut, air cushion more appropriate. - Per wound care
Will transfer to [place] under the Allo transplant service at [facility] with Dr. Cassandra Benitez
Anticipated Discharge: Within 24 hours
Subjective/Interval History
-
Date of Service: September 17, 2024
Objective Data
-
Labs:
Laboratory Results
09/17/24
08:11
WBC 4.1 L
Hgb 10.1 L
Hct 29.9 L
Plt Count 18 L*
Vital Signs:
Vital Signs
Temp Pulse Resp BP Pulse Ox
97.9 F 79 18 127/63 96
09/17/24 11:00 09/17/24 11:00 09/17/24 11:00 09/17/24 11:00 09/17/24 11:00
I&O
09/16/24 09/17/24 09/18/24
06:59 06:59 06:59
Intake Total 1920 / 1920 2400 / 2400
Output Total 950 / 950 950 / 950
Balance 970 / 970 1450 / 1450
Review of Systems
-
History Source: Patient
EENT: Reports Other (dry mouth)
Respiratory: Reports No Symptoms
Cardiac: Reports No Symptoms
Abdomen/GI: Reports No Symptoms
Neuro: Reports No Symptoms
Physical Exam
-
General: No Apparent Distress
Respiratory: Clear to Auscultation
Cardiac: Regular Rhythm and S1/S2
GI: Soft, Nontender, Nondistended and Normal Bowel Sounds
Skin: Warm
Neuro: AO x 3
Psych: Calm
[2024-09-17] MEDS: NON-FORMULARY ITEM 1 UNIT PO ×2 (15:24→21:18)
[2024-09-17 16:47] LABS: Glucose - Point of Care 255 mg/dl (70-99)
[2024-09-17] MEDS: NOVOLOG FLEXPEN-LOW RESISTANCE 3 UNITS SC (16:51)
[2024-09-17] MEDS: ERYTHROMYCIN 0.5% OPHTHALMIC OINTMENT BOTH EYES (21:17)
[2024-09-17] MEDS: FLOMAX 0.4 MG PO (21:18)
[2024-09-17] MEDS: IMODIUM 2 MG PO (21:18)
[2024-09-17 22:12] LABS: Glucose - Point of Care 148 mg/dl (70-99)
[2024-09-18 03:29] VITALS: BP 134/82
[2024-09-18 06:00] VITALS: BMI 35.0
--- NOTE | 2024-09-18 06:10 | PTCARENOTE ---
Pt with [address] into 150s- pt asymptomatic, sleeping. OCCUPATIONAL THERAPIST'S ASSISTANT made aware- BMP, mag added to AM labs. No further orders.
--- NOTE | 2024-09-18 07:05 | W.PN.UPDATE ---
Update Note
Progress Note Update
patient had 15 beats of v-tach, asymptomatic, stable Vs otherwise, will order CBC, BMP Mag now.
[2024-09-18 07:06] LABS: Blood Urea Nitrogen 32 mg/dl (9-20); Carbon Dioxide 28 mmol/L (22-30); Chloride 102 mmol/L (98-107); Estimated Creatinine Clearance 107 ml/min; Glucose 115 mg/dl (70-99); Magnesium 1.8 mg/dl (1.6-2.3); Potassium 4.1 mmol/L (3.5-5.1); Sodium 138 mmol/L (135-145); eGFR > 60.00
[2024-09-18 07:12] LABS: Glucose - Point of Care 130 mg/dl (70-99)
[2024-09-18 07:13] LABS: Hematocrit 27.9 % (39.0-52.0); Hemoglobin 9.7 g/dL (13.0-18.0); Mean Corp Hgb Conc. 34.8 g/dL (33.0-37.0); Mean Corpuscular Hgb 39.6 pg (27.0-31.0); Mean Corpuscular Volume 113.9 fL (80.0-94.0); Mean Platelet Volume 12.2 fL (7.4-10.4); Platelet Count 19 10^3/uL (130-400); Red Blood Cell Count 2.45 10^6/uL (4.70-6.10); White Blood Cell Count 4.4 10^3/uL (4.8-10.8)
[2024-09-18 07:54] VITALS: BP 125/76
[2024-09-18] MEDS: SYMBICORT 160/4.5 MCG INHALER 2 PUFF INH ×2 (08:19→19:49)
[2024-09-18] MEDS: NON-FORMULARY ITEM 1 UNIT PO ×3 (08:59→21:19)
[2024-09-18] MEDS: NOVOLOG FLEXPEN-LOW RESISTANCE SC (08:59)
[2024-09-18] MEDS: NON-FORMULARY ITEM 5 MG PO ×2 (09:01→21:18)
[2024-09-18] MEDS: NON-FORMULARY ITEM 300 MG PO (09:02)
[2024-09-18] MEDS: NON-FORMULARY ITEM 200 MG PO (09:03)
[2024-09-18] MEDS: GLUCOPHAGE 500 MG PO ×2 (09:04→17:11)
[2024-09-18] MEDS: ZOVIRAX 800 MG PO ×2 (09:05→21:18)
[2024-09-18] MEDS: DELTASONE 30 MG PO (09:05)
[2024-09-18] MEDS: LEVAQUIN 500 MG PO (09:05)
[2024-09-18] MEDS: THERAGRAN 1 TABLET PO (09:06)
[2024-09-18] MEDS: VITAMIN C 1000 MG PO (09:06)
[2024-09-18] MEDS: VITAMIN D3 (cholecalciferol) 25 MCG PO (09:07)
[2024-09-18] MEDS: LYRICA 100 MG PO ×2 (09:07→21:18)
[2024-09-18] MEDS: PEPCID 20 MG PO ×2 (09:08→21:18)
[2024-09-18 10:58] VITALS: BP 102/68
--- NOTE | 2024-09-18 11:37 | CON.NEURO4 ---
Addendum entered and electronically signed by Tommie Weston MD 09/18/24 14:13:
Studies reviewed.
I have personally examined the patient. I reviewed and agree with the IT TRAINING SPECIALIST's Note.
My addenda:
Awake, alert, interactive. No acute distress.
Speech intact.
Follows 2-step requests w/o difficulty. No tremor.
Extra-ocular movements grossly intact.
Facial movements full and symmetric. Hearing intact to normal conversational volume.
Normal UE movements bilaterally.
Neck: full ROM.
Chest: no dyspnea
Heart: no JVD
Ext: (-) Clubbing, (-) Cyanosis, (-) Edema
IMPRESSIONS/RECOMMENDATIONS:
Abrupt onset of right thigh discomfort timed with significant edema in bilateral lower extremities, beginning 2 weeks ago
Most likely due to right-sided meralgia paresthetica involving the right femoral nerve
Supportive care
Consider increasing pregabalin, patient wishes to not increase medication at this time to reduce discomfort
Will continue to follow as needed
Original Note:
Consultation - Neurology 4
-
CONSULTING PHYSICIAN: Tommie Weston MD
REFERRING PHYSICIAN: Hospitalists/Esme Crespo MD Resident
DICTATED BY: CM Carpenter
DATE/TIME OF REQUEST: 09/18/24
DATE/TIME OF CONSULTATION: 09/18/24
Reason for Consultation: Right thigh numbness
History of Present Illness:
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
chronic GVHD. Patient reports that about two weeks ago when his BLE edema started progressing, he noticed that his right anterior thigh felt numb. His lower extremity edema is now significantly improved but his right thigh numbness is unchanged. He
denies any headache, dizziness, neck/back pain, speech/swallow difficulty, focal weakness, nausea, chest pain, palpitations, and shortness of breath. He notes having numbness/tingling in bilateral hands thumb, 2nd, and 3rd fingers as well. He
completed EMG testing in [place] on bilateral arms only that demonstrated bilateral carpal tunnel syndrome, he is yet to have a chance to schedule carpal tunnel release. He also notes that his doctors at [facility] decreased him home pregabalin from 150mg
BID to 100mg BID about 2 weeks ago for a reason that he cannot recall, he thinks it was something to do with interacting with his treatments.
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
Surgical History: R knee surgery, b/l RTC repair, tonsillectomy, left eye cataract removal, lumbar spine surgery
Family History: Reviewed and noncontributory.
Social History: Denies tobacco, alcohol, and illicit drug use.
Allergies: Rainelle.
Home Medications: See below.
Review of Symptoms:
Patient denies any fever, headache, chest pain, shortness of breath, GI or symptoms.
�Per the HPI.�All systems are reviewed negative except above.
Physical Exam:
The patient is afebrile, abdomen is nondistended, breathing is unlabored, generalized ecchymosis, rash on palms/face, +1 BLE edema, R knee/tapia with DSD.
Neurologic Examination:
The patient is awake, alert and oriented x 3. He is able to follow commands and answer questions appropriately. There is no aphasia or dysarthria. On cranial nerve assessment, pupils are pinpoint, round and minimally reactive to light and
accommodation. Visual lopez are full. Extraocular movements are intact. Facial sensations are intact and bilaterally symmetrical, there is no facial asymmetry. Hearing is intact bilaterally to normal conversation volume. Tongue palate and uvula are
midline. Sternocleidomastoid strengths are full bilaterally. Motor strengths are 5/5 bilateral upper and lower extremities on medical research [place] scale. There is no drift or involuntary movement noted. Deep tendon reflexes are 1+ bilateral
upper and lower extremities and Babinski is absent bilaterally. Sensations of temperature and touch are absent in the right lateral transitioning to anterior thigh. Coordination is intact by finger to nose bilaterally.
Lab Results: See below.
Neuro Imaging: None.
Differentials for the patient's presentation include:
1. Meralgia paresthetica likely producing right thigh numbness in the setting of chronic steroid use, recently lowered pregabalin dose.
Patient has the following risk factors for their symptoms: Obesity, sedentary, steroid usage, recently lowered pregabalin
Recommendations:
-Lidoderm patch to right thigh for comfort if patient wishes to pursue this.
-Would increase pregabalin dose but patient would like to hold off due to not remembering the reason it was decreased. Okay to continue pregabalin 100mg BID.
-Do not see a role for further neurological imagings.
-PT evaluation.
-Neurology will follow as-needed, please contact our service with any questions/concerns.
Discussed patient care with: Dr. eWston, the patient
Vital Signs and Labs
-
Vital Signs and Labs:
Vital Signs
Temp Pulse Resp BP Pulse Ox
97.5 F 104 18 102/68 99
09/18/24 10:58 09/18/24 10:58 09/18/24 10:58 09/18/24 10:58 09/18/24 10:58
Lab Results
09/18/24 06:37
09/18/24 06:37
Sodium 138 mmol/L (135-145) 09/18/24 06:37
Potassium 4.1 mmol/L (3.5-5.1) 09/18/24 06:37
BUN 32 mg/dl (9-20) H 09/18/24 06:37
Glucose 115 mg/dl (70-99) H 09/18/24 06:37
Calcium 9.0 mg/dl (8.4-10.2) 09/18/24 06:37
Blg-[id number]-[id number] Pept 666 pg/ml 09/13/24 00:48
Vitamin B12 > 1000 pg/ml (033-734) H 09/11/24 07:12
Medications
-
Active Medications
Generic Name Dose Route Start Last Admin
Trade Name Freq PRN Reason Stop Dose Admin
Acyclovir Sodium 800 mg 09/10/24 22:00 09/18/24 09:05
Acyclovir Sodium 800 Mg Tablet PO 09/20/24 21:59 800 mg
BID@1000,2200 GINNY Administration
Albuterol/Ipratropium 3 ml 09/17/24 14:00
Ipratropium 0.5/Albuterol 3 Mg (3 Ml Ampul) INH
R Q4HPRN PRN
SOB, wheezing
Protocol
Ascorbic Acid 1,000 mg 09/11/24 08:00 09/18/24 09:06
Ascorbic Acid 500 Mg Tablet PO 10/09/24 07:59 1,000 mg
DAILY GINNY Administration
Azithromycin 250 mg 09/10/24 19:33 09/17/24 09:11
Azithromycin 250 Mg Tablet PO 250 mg
MoWeFr@0800 GINNY Administration
Budesonide/Formoterol Fumarate 2 puff 09/10/24 20:00 09/18/24 08:19
Symbicort Inhaler 160/4.5 INH 10/08/24 19:59 2 puff
R BID GINNY Administration
Protocol
Cholecalciferol 25 mcg 09/11/24 10:00 09/18/24 09:07
Cholecalciferol (Vitamin D3) 25 Mcg Tablet (1,000 Units) PO 10/09/24 09:59 25 mcg
DAILY@1000 GINNY Administration
Cyanocobalamin 1,000 mcg 09/10/24 19:33 09/17/24 09:11
Cyanocobalamin 1,000 Mcg Tablet PO 10/08/24 19:32 1,000 mcg
MoWeFr@0800 GINNY Administration
Dextrose 12.5 grams 09/10/24 19:33
Dextrose 50% (0.5 Grams/Ml) 50 Ml Syringe IV 10/08/24 19:32
[id number] PRN
hypoglycemia
Protocol
Erythromycin 1 applic 09/10/24 22:00 09/17/24 21:17
Erythromycin 0.5% (Ophthalmic Ointment) 1 Gram Tube BOTH EYES 09/20/24 21:59 Not Given
HS GINNY
Famotidine 20 mg 09/10/24 20:00 09/18/24 09:08
Famotidine 20 Mg Tablet PO 10/08/24 19:59 20 mg
BID GINNY Administration
Glucagon 1 mg 09/10/24 19:33
Glucagon 1 Mg Vial IM 10/08/24 19:32
PRN PRN
hypoglycemia
Protocol
Insulin Aspart 0 units 09/11/24 07:30 09/18/24 12:41
Insulin Aspart Low Resistance 300 Units/3 Ml Pen.Injctr SC 10/09/24 07:29 1 units
AC GINNY Administration
Protocol
Levofloxacin 500 mg 09/11/24 08:00 09/18/24 09:05
Levofloxacin 500 Mg Tablet PO 500 mg
DAILY GINNY Administration
Loperamide HCl 2 mg 09/16/24 08:45 09/17/24 21:18
Loperamide 2 Mg Capsule PO 10/14/24 08:44 2 mg
Q6HPRN PRN Administration
diarrhea
Metformin HCl 500 mg 09/10/24 19:33 09/18/24 09:04
Metformin 500 Mg Regular Release Tablet PO 10/08/24 19:32 500 mg
BID@0800,1700 GINNY Administration
Multivitamins Therapeutic 1 tablet 09/11/24 08:00 09/18/24 09:06
Multivitamin Tablet PO 10/09/24 07:59 1 tablet
DAILY GINNY Administration
Belumosudil [ 0 mg 09/11/24 08:00 09/18/24 09:03
Rezurock] 200 Mg PO 10/09/24 07:59 200 mg
Tablet - Take 1 DAILY GINNY Administration
Tablet Po Daily
Posaconazole 100 Mg 0 mg 09/11/24 08:00 09/18/24 09:02
Tablet,Delayed PO 10/09/24 07:59 300 mg
Release (Dr/Ec) - DAILY GINNY Administration
300 Mg Po Daily
Ruxolitinib [Jakafi] 0 mg 09/11/24 13:00 09/18/24 09:01
5 Mg Tablet - 5 Mg PO 10/09/24 12:59 5 mg
Po Bid BID GINNY Administration
Budesonide 3 Mg Size 0 unit 09/17/24 16:00 09/18/24 08:59
#0 Blue/White PO 10/15/24 15:59 1 unit
Capsule - See TID GINNY Administration
Special Instructions
Prednisone 30 mg 09/11/24 08:00 09/18/24 09:05
Prednisone 10 Mg Tablet PO 10/09/24 07:59 30 mg
DAILY GINNY Administration
Pregabalin 100 mg 09/10/24 20:00 09/18/24 09:07
Pregabalin 100 Mg Capsule PO 10/08/24 19:59 100 mg
BID GINNY Administration
Tamsulosin HCl 0.4 mg 09/10/24 22:00 09/17/24 21:18
Tamsulosin 0.4 Mg Capsule PO 10/08/24 21:59 0.4 mg
HS GINNY Administration
Trimethoprim/Sulfamethoxazole 1 tablet 09/10/24 19:33 09/17/24 09:11
Sulfamethoxazole (800 Mg)/Trimethoprim (160 Mg) Tablet PO 1 tablet
MoWeFr@0800 GINNY Administration
Home Medications
�Medication �Instructions �Recorded
acyclovir 800 mg tablet 800 mg PO BID@1000,2200 prophylaxis 11/17/22
famotidine 20 mg tablet (Pepcid) 20 mg PO BID Gastrointestinal 11/17/22
issue ##0
cholecalciferol (vitamin D3) 25 25 mcg PO DAILY@1000 Supplement 04/29/23
mcg (1,000 unit) tablet (Vitamin
D3)
cyanocobalamin (vitamin B-12) 1,000 mcg PO MOWEFR Supplement 04/29/23
1,000 mcg tablet (Vitamin B-12)
tamsulosin 0.4 mg capsule 0.4 mg PO HS Urinary Issue 04/29/23
albuterol sulfate 90 mcg/actuation 1 puff inhalation R Q4HPRN PRN sob 07/01/24
aerosol inhaler
ascorbic acid (vitamin C) 1,000 mg 1,000 mg PO DAILY Supplement 07/01/24
tablet
belumosudil 200 mg tablet 200 mg PO DAILY bone marrow 07/01/24
(Rezurock) transplant
budesonide-formoterol HFA 160 2 puff inhalation R BID 07/01/24
mcg-4.5 mcg/actuation aerosol Lung/Breathing Issues
inhaler
erythromycin 5 mg/gram (0.5 %) eye 1 applic BOTH EYES HS Eye Condition 07/01/24
ointment
metformin 500 mg tablet 500 mg PO BIDWMEAL DIABETES 07/01/24
ruxolitinib 5 mg tablet (Jakafi) 5 mg PO BID bone marrow transplant 07/01/24
sulfamethoxazole 800 1 tab PO MOWEFR infection 07/01/24
mg-trimethoprim 160 mg tablet prophylaxis
azithromycin 250 mg tablet 250 mg PO MOWEFR Infection 09/10/24
furosemide 40 mg tablet 40 mg PO DAILY Fluid 09/10/24
Retention/Swelling
insulin aspart U-100 100 unit/mL 1 sliding scale dose SC AC Diabetes 09/10/24
(3 mL) subcutaneous pen (Novolog
FlexPen U-100 Insulin aspart)
levofloxacin 500 mg tablet 500 mg PO DAILY Infection 09/10/24
posaconazole 100 mg tablet,delayed 300 mg PO DAILY Infection 09/10/24
release
prednisone 10 mg tablet 30 mg PO DAILY Autoimmune Disorder 09/10/24
pregabalin 150 mg capsule 100 mg PO BID Neurological 09/10/24
Condition
therapeutic multivitamin 1 tab PO DAILY Supplement 09/10/24
--- NOTE | 2024-09-18 11:52 | CM ---
CM reviewed chart, patient transfer to [facility] when bed available. CM will continue to follow for all discharge planning needs.
Plan; transfer to [facility] when available.
[2024-09-18 12:03] LABS: Glucose - Point of Care 177 mg/dl (70-99)
[2024-09-18] MEDS: NOVOLOG FLEXPEN-LOW RESISTANCE 1 UNITS SC (12:41)
--- NOTE | 2024-09-18 13:37 | W.PN.HOSP.TC ---
Addendum entered and electronically signed by Fili Chavez MD 09/18/24 15:06:
seen and examined by me independently in collaboration with the medical office clerk Esme.
Lab data and imaging data reviewed.
Addendum as below :
Patient sitting in his chair. Appears comfortable. Denies any shortness of breath at rest. Chest without any bronchospasm. I do not appreciate much of crackles on auscultation today. Not hypoxic. On room air.
Patient tolerating oral diet. Loose stools but no diarrhea.
Platelets of 19,000 noted aims to keep more than 15,000.
On treatments for chronic GVH disease. LFT are ok. GI symptoms are ok. No rash.
pancytopenia remains but no indication for blood product support today. Await transfer to [facility] for further evaluation. Onc following here.
Tele reviewed -short burst of SVT no VT/AFib . Follow for now.
Original Note:
Today's Communication/Plan
-
Transfer to [facility] pending bed availability
Assessment / Plan
Assessment / Plan
Overnight telemetry reviewed. Not V. tach. Asymptomatic. Electrolytes within normal range. Continue on telemetry
Bilateral lower extremity edema secondary to recent IV fluids
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
- One dose 20mg IV lasix in ED
- Echo 65-70% EF
- Unlikely cardiac in nature
- Axatilimab has a 13% incidence of edema, and additional IVF likely also contributed per hemeonc
- wrapping of legs
- Significant improvement over weekend
� PT OT
- Transfer to [facility] when bed available
Labile BP/lightheadedness
-Potentially volume down after receiving 1 dose of IV diuretic, continued on p.o. diuretics, 2 L urinary output with diuresis
-Hold lasix
-Monitor on telemetry
-EKG sinus tachycardia with PACs
-Start abd binder
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
-Today ptl 19.
- Peripheral smear unremarkable for acute etiology
-If actively bleeding transfuse platelets of less than 30,000
-Without active bleeding transfuse platelets of less than 15,000 per hemeonc
-If hemoglobin less than 7 transfuse PRBC
-Hematology/oncology following
-Anemia, macrocytic/megaloblastic with hemoglobin 10.0, MCV 109.4. B12 folate within normal limits
Meralgia paresthetica
� In setting of chronic steroid use, recently lowered pregabalin dose
� Patient home pregabalin dose of 100 mg twice daily
� Patient not interested in increasing at this time. He does not remember why it was lowered originally
- Monitor
Diabetes
-A1c 7.2
-Sliding scale
-Accu-Cheks
-Goal blood glucose 140-180
-Carb controlled diet
Chronic Thompson
-Placed 2 week ago at [facility]
-Changed yesterday
-Outpatient urology follow-up
Diarrhea
-3 episode, reported as loose
-CDiff negative start immodium
-Resolved
Wound care/Skin tears. 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
-Plan: Vaseline gauze and dry dressing to arms and R knee. ABD pads under Bobo wraps knee high to legs. Air chair cushion placed under intact heels to protect. Instructed patient to take air cushion home upon discharge to use when sitting. Patient
currently just purchased a donut type cushion, recommended not to use donut, air cushion more appropriate. - Per wound care
Will transfer to [place] under the Allo transplant service at [facility] with Dr. Cassandra Benitez
Anticipated Discharge: Within 24 hours
Subjective/Interval History
-
Date of Service: September 18, 2024
Objective Data
-
Labs:
Laboratory Results
09/18/24
06:37
WBC 4.4 L
Hgb 9.7 L
Hct 27.9 L
Plt Count 19 L*
Sodium 138
Potassium 4.1
Chloride 102
Carbon Dioxide 28
BUN 32 H
Creatinine 0.7
Glucose 115 H
Calcium 9.0
Vital Signs:
Vital Signs
Temp Pulse Resp BP Pulse Ox
97.5 F 104 18 102/68 99
09/18/24 10:58 09/18/24 10:58 09/18/24 10:58 09/18/24 10:58 09/18/24 10:58
I&O
09/17/24 09/18/24 09/19/24
06:59 06:59 06:59
Intake Total 2400 / 2400 840 / 840
Output Total 950 / 950 1500 / 1500
Balance 1450 / 1450 -660 / -660
Review of Systems
-
History Source: Patient
EENT: Reports No Symptoms Reported
Respiratory: Reports Trouble Breathing (At baseline)
Cardiac: Reports No Symptoms
Abdomen/GI: Reports No Symptoms
Genitourinary: Reports No Symptoms
Neuro: Reports No Symptoms
Physical Exam
-
General: No Apparent Distress and Comfortable
Respiratory: Clear to Auscultation
Cardiac: Regular Rhythm and S1/S2
GI: Soft, Nontender, Nondistended and Normal Bowel Sounds
Musculoskeletal: No Edema
Skin: Warm
Neuro: AO x 3
Psych: Calm
[2024-09-18] MEDS: IMODIUM 2 MG PO (13:45)
--- NOTE | 2024-09-18 14:26 | W.PN.ONC2 ---
Today's Communication / Plan
-
daily CBC, transfuse prn
awaiting [place] transfer
Impression
Impression
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
chronic GVHD, involving lungs, skin, mouth, eyes - recently started axatilimab
chronic thrombocytopenia (often in the 40-50 range)
Dyspnea
Plan
Plan
Current GVHD regimen as outlined by Dr. Lea -Jakafi 5mg bid (dose reduced for thrombocytopenia), prednisone 30mg daily, and belumosudil 200mg
Axatilimab has a 13% incidence of edema
Gentle diuresis per primary team, elevation, wrapping of legs
Thrombocytopenia is chronic per patient
Monitor CBC regularly, watch for bleeding. Transfuse PLT < 15K with leukoreduced irradiated products.
Further mgmt of cGVHD per Dr Lea et al at [place], awaiting transfer
Subjective/Objective
Subjective
no new complaints
denies bleeding
Vital Signs:
Vital Signs
Temp Pulse Resp BP Pulse Ox
97.5 F 104 18 102/68 99
09/18/24 10:58 09/18/24 10:58 09/18/24 10:58 09/18/24 10:58 09/18/24 10:58
Lab Results:
Laboratory Data
WBC 4.4 10^3/uL (4.8-10.8) L 09/18/24 06:37
Hgb 9.7 g/dL (13.0-18.0) L 09/18/24 06:37
Plt Count 19 10^3/uL (130-400) L* 09/18/24 06:37
eGFR > 60.00 09/18/24 06:37
Physical Exam
HEENT: Moist Mucous Membranes; No Jaundice
Cardiology: S1 and S2
Pulmonary: Clear
GI: Soft
Extremities: Edema
Neuro: Non Focal
[2024-09-18 15:11] VITALS: BP 100/73
[2024-09-18 16:26] LABS: Glucose - Point of Care 242 mg/dl (70-99)
[2024-09-18] MEDS: NOVOLOG FLEXPEN-LOW RESISTANCE 2 UNITS SC (17:11)
[2024-09-18 19:13] VITALS: BP 104/72
[2024-09-18] MEDS: ERYTHROMYCIN 0.5% OPHTHALMIC OINTMENT 1 APPLIC BOTH EYES (21:18)
[2024-09-18] MEDS: FLOMAX 0.4 MG PO (21:18)
[2024-09-18 21:43] LABS: Glucose - Point of Care 151 mg/dl (70-99)
[2024-09-18 23:10] VITALS: BP 117/86
[2024-09-19] VITALS (7 sets, daily range): BP systolic 100–125; BP diastolic 69–89; PULSE 102–110; BMI 34.7
[2024-09-19 07:09] LABS: Glucose - Point of Care 114 mg/dl (70-99)
[2024-09-19] MEDS: NOVOLOG FLEXPEN-LOW RESISTANCE SC (07:25)
--- NOTE | 2024-09-19 07:40 | W.PN.ONC2 ---
Today's Communication / Plan
-
Await today's CBC and specifically platelet count is pending. If platelet count <15,000, transfuse 1 unit leukoreduced, irradiated platelets.
Not sure if patient will get transferred to [place] in a timely fashion. It may be appropriate to discharge him home with outpatient follow-up for axatilimab monoclonal antibody infusion.
He is messaging Dr. Lea at this time; will wait to see if he gets a response this morning. I believe it would be reasonable to start the discharge planning process.
Impression
Impression
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
chronic GVHD, involving lungs, skin, mouth, eyes - recently started axatilimab
chronic thrombocytopenia (often in the 40-50 range)
Dyspnea
Plan
Plan
Current GVHD regimen as outlined by Dr. Lea -Jakafi 5mg bid (dose reduced for thrombocytopenia), prednisone 30mg daily, and belumosudil 200mg
Axatilimab has a 13% incidence of edema
Gentle diuresis per primary team, elevation, wrapping of legs
Thrombocytopenia is chronic per patient
Monitor CBC regularly, watch for bleeding. Transfuse PLT < 15K with leukoreduced irradiated products.
Further mgmt of cGVHD per Dr Lea et al at [place], awaiting transfer
Subjective/Objective
Chief Complaint
Heme-onc follow-up
Subjective
Feels better and basically back to baseline. Leg swelling has resolved. No nausea or vomiting. He is in the process of sending a patient portal message to his primary hematology attending Dr. Lea at [place] to find out next steps. At this
point, still no beds available for him to be transferred. Really only main other complaint is generalized weakness.
Vital Signs:
Vital Signs
Temp Pulse Resp BP Pulse Ox
98.0 F 93 16 112/87 98
09/19/24 03:55 09/19/24 03:55 09/19/24 03:55 09/19/24 03:55 09/19/24 03:55
Lab Results:
Laboratory Data
WBC 4.4 10^3/uL (4.8-10.8) L 09/18/24 06:37
Hgb 9.7 g/dL (13.0-18.0) L 09/18/24 06:37
Plt Count 19 10^3/uL (130-400) L* 09/18/24 06:37
eGFR > 60.00 09/18/24 06:37
Physical Exam
Cardiology: S1 and S2
Pulmonary: Clear
GI: Soft
[2024-09-19] MEDS: SYMBICORT 160/4.5 MCG INHALER 2 PUFF INH ×2 (07:55→19:28)
[2024-09-19] MEDS: NON-FORMULARY ITEM 100 MG PO (08:02)
[2024-09-19] MEDS: NON-FORMULARY ITEM 200 MG PO (08:03)
[2024-09-19] MEDS: NON-FORMULARY ITEM 5 MG PO ×2 (08:04→21:36)
[2024-09-19] MEDS: NON-FORMULARY ITEM 1 UNIT PO ×3 (08:05→21:37)
[2024-09-19] MEDS: LEVAQUIN 500 MG PO (08:10)
[2024-09-19] MEDS: PEPCID 20 MG PO ×2 (08:11→21:35)
[2024-09-19] MEDS: GLUCOPHAGE 500 MG PO ×2 (08:12→17:00)
[2024-09-19] MEDS: LYRICA 100 MG PO ×2 (08:12→21:35)
[2024-09-19] MEDS: DELTASONE 30 MG PO (08:13)
[2024-09-19] MEDS: VITAMIN C 1000 MG PO (08:13)
[2024-09-19] MEDS: THERAGRAN 1 TABLET PO (08:14)
[2024-09-19] MEDS: BACTRIM DS 800 MG/160 MG 1 TABLET PO (08:17)
[2024-09-19] MEDS: VITAMIN B-12 1000 MCG PO (08:22)
[2024-09-19 09:08] LABS: Hematocrit 30.7 % (39.0-52.0); Hemoglobin 10.4 g/dL (13.0-18.0); Mean Corp Hgb Conc. 33.9 g/dL (33.0-37.0); Mean Corpuscular Hgb 39.8 pg (27.0-31.0); Mean Corpuscular Volume 117.6 fL (80.0-94.0); Mean Platelet Volume 12.8 fL (7.4-10.4); Platelet Count 21 10^3/uL (130-400); Red Blood Cell Count 2.61 10^6/uL (4.70-6.10); Red Cell Dist. Width 17.4 % (11.5-14.5); White Blood Cell Count 4.9 10^3/uL (4.8-10.8)
[2024-09-19] MEDS: ZITHROMAX 250 MG PO (09:09)
--- NOTE | 2024-09-19 09:26 | PTCARENOTE ---
Patient has critical lab value, Platelet 21., MD Crespo notified. no new orders at this time. will continue to monitor.
--- NOTE | 2024-09-19 12:07 | CM ---
CM reviewed chart, met with patient bedside. Patient awaiting transfer to [facility], will continue to follow for all discharge planning needs.
Plan; transfer to [facility] pending bed availability.
[2024-09-19] MEDS: ZOVIRAX 800 MG PO ×2 (12:13→21:35)
[2024-09-19] MEDS: VITAMIN D3 (cholecalciferol) 25 MCG PO (12:14)
[2024-09-19 12:21] LABS: Glucose - Point of Care 206 mg/dl (70-99)
[2024-09-19] MEDS: NOVOLOG FLEXPEN-LOW RESISTANCE 2 UNITS SC ×2 (12:39→17:01)
--- NOTE | 2024-09-19 12:56 | W.PN.HOSP.TC ---
Addendum entered and electronically signed by Fili Chavez MD 09/19/24 15:15:
Seen and examined by me independently in collaboration with the medical sales associate Esme.
Lab data and imaging data reviewed.
Addendum as below :
Patient improved from presenting symptoms of lower extremity edema. His weight is 223 pounds much lower than his baseline. Off of diuretics. Continue to hold them.
He has chronic G VHD-
Loose bowel movements but no diarrhea. some exertional shortness of breath but nothing at rest. Not hypoxic. No cough. No fevers. No rash.
Improving pancytopenia. Platelets are 21,000 today.
Still await transfer to [place].
Oncology note reviewed from today.
I feel from his presenting symptoms he is stable to go home and follow-up with oncology as an outpatient. Will touch base with primary oncologist at [place] today. In meantime check oxygen with exertion and also orthostatic blood pressure readings
and based on that we will have a discharge plan.
Original Note:
Today's Communication/Plan
-
Transfer to [facility] pending bed
Orthostatic vitals and home O2 evaluation for de-satting events while ambulating. If okay, discharge home.
Assessment / Plan
Assessment / Plan
Pt said he is due for a transfusion for GVHD today and he has contacted his Oncologist at [place] multiple times about getting a bed to no avail. Will hopefully get a bed today. Otherwise stable.
Bilateral lower extremity edema secondary to recent IV fluids
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
- One dose 20mg IV lasix in ED
- Echo 65-70% EF
- Unlikely cardiac in nature
- Axatilimab has a 13% incidence of edema, and additional IVF likely also contributed per hemeonc
- wrapping of legs
- Significant improvement over weekend
� PT OT
- Transfer to [facility] when bed available
Labile BP/lightheadedness
-Potentially volume down after receiving 1 dose of IV diuretic, continued on p.o. diuretics, 2 L urinary output with diuresis
-Hold lasix
-Monitor on telemetry
-EKG sinus tachycardia with PACs
- Spoke to Dr. Yates. Evaluate orthostatics today and Oxygen levels while ambulating. Discharge if stable per her recommendations
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
-ptl 19 -> 21
-Peripheral smear unremarkable for acute etiology
-If actively bleeding transfuse platelets of less than 30,000
-Without active bleeding transfuse platelets of less than 15,000 per hemeonc
-If hemoglobin less than 7 transfuse PRBC
-Hematology/oncology following
-Anemia, macrocytic/megaloblastic with high MCV. B12 folate within normal limits
Meralgia paresthetica
� In setting of chronic steroid use, recently lowered pregabalin dose
� Patient home pregabalin dose of 100 mg twice daily
� Patient not interested in increasing at this time. He stated dose lowered due to affecting his BP.
- Monitor
Diabetes
-A1c 7.2
-Sliding scale
-Accu-Cheks
-Goal blood glucose 140-180
-Carb controlled diet
Chronic Thompson
-Placed 2 week ago at [facility]
-Changed yesterday
-Outpatient urology follow-up
Diarrhea
-3 episode, reported as loose
-CDiff negative start immodium
-Resolved
Wound care/Skin tears. 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
-Plan: Vaseline gauze and dry dressing to arms and R knee. ABD pads under Bobo wraps knee high to legs. Air chair cushion placed under intact heels to protect. Instructed patient to take air cushion home upon discharge to use when sitting. Patient
currently just purchased a donut type cushion, recommended not to use donut, air cushion more appropriate. - Per wound care
Will transfer to [place] under the Allo transplant service at [facility] with Dr. Cassandra Benitez
Anticipated Discharge: Within 24 hours
Subjective/Interval History
-
Date of Service: September 19, 2024
Objective Data
-
Labs:
Laboratory Results
09/19/24
07:48
WBC 4.9
Hgb 10.4 L
Hct 30.7 L
Plt Count 21 L*
Vital Signs:
Vital Signs
Temp Pulse Resp BP Pulse Ox
97.6 F 100 18 109/78 98
09/19/24 11:39 09/19/24 11:39 09/19/24 11:39 09/19/24 11:39 09/19/24 11:39
I&O
09/18/24 09/19/24 09/20/24
06:59 06:59 06:59
Intake Total 840 / 840 780 / 780
Output Total 1500 / 1500 1100 / 1100
Balance -660 / -660 -320 / -320
Review of Systems
-
History Source: Patient
Constitutional: Reports No Symptoms
Respiratory: Reports Trouble Breathing (At baseline)
Cardiac: Reports No Symptoms
Abdomen/GI: Reports No Symptoms
Neuro: Reports No Symptoms
Physical Exam
-
General: No Apparent Distress and Comfortable
HEENT: Normocephalic
Respiratory: Clear to Auscultation
Cardiac: Regular Rhythm and S1/S2
GI: Soft, Nontender, Nondistended and Normal Bowel Sounds
Musculoskeletal: No Edema
Skin: Warm
Neuro: AO x 3
[2024-09-19] MEDS: IMODIUM 2 MG PO ×2 (14:37→21:34)
[2024-09-19 16:59] LABS: Glucose - Point of Care 223 mg/dl (70-99)
[2024-09-19 20:47] LABS: Glucose - Point of Care 160 mg/dl (70-99)
[2024-09-19] MEDS: ERYTHROMYCIN 0.5% OPHTHALMIC OINTMENT BOTH EYES (21:34)
[2024-09-19] MEDS: FLOMAX 0.4 MG PO (21:35)
[2024-09-19] MEDS: ERYTHROMYCIN 0.5% OPHTHALMIC OINTMENT 1 APPLIC BOTH EYES (22:52)
[2024-09-20] VITALS (8 sets, daily range): BP systolic 113–134; BP diastolic 73–91; PULSE 91–124; O2SAT 97; BMI 35.0
--- NOTE | 2024-09-20 07:05 | PTCARENOTE ---
During bedside shift report, patient c/o pressure and pain with nguyễn in place. Leaking was noted around the Nguyễn. 10CC was removed from nguyễn balloon and urine was released, patient stated feeling 'relief and much better' new 16 fr. Nguyễn was
placed by Night nurse David, and MD Crespo was notified of new changes during AM rounds. will continue to monitor.
[2024-09-20 07:37] LABS: Glucose - Point of Care 122 mg/dl (70-99)
[2024-09-20] MEDS: SYMBICORT 160/4.5 MCG INHALER 2 PUFF INH ×2 (07:37→20:01)
[2024-09-20 08:21] LABS: Hematocrit 28.2 % (39.0-52.0); Hemoglobin 9.6 g/dL (13.0-18.0); Mean Corpuscular Hgb 39.8 pg (27.0-31.0); Red Blood Cell Count 2.41 10^6/uL (4.70-6.10); Red Cell Dist. Width 17.2 % (11.5-14.5); White Blood Cell Count 3.9 10^3/uL (4.8-10.8)
[2024-09-20] MEDS: NOVOLOG FLEXPEN-LOW RESISTANCE SC ×2 (08:28→12:03)
[2024-09-20] MEDS: LEVAQUIN 500 MG PO (08:40)
[2024-09-20] MEDS: GLUCOPHAGE 500 MG PO ×2 (08:40→16:56)
[2024-09-20] MEDS: LYRICA 100 MG PO ×2 (08:41→22:25)
[2024-09-20] MEDS: VITAMIN C 1000 MG PO (08:41)
[2024-09-20] MEDS: DELTASONE 30 MG PO (08:41)
[2024-09-20] MEDS: PEPCID 20 MG PO ×2 (08:42→21:34)
[2024-09-20] MEDS: THERAGRAN 1 TABLET PO (08:42)
[2024-09-20] MEDS: NON-FORMULARY ITEM 1 UNIT PO ×3 (08:43→21:27)
[2024-09-20] MEDS: NON-FORMULARY ITEM 200 MG PO (08:44)
[2024-09-20] MEDS: NON-FORMULARY ITEM 300 MG PO (08:45)
[2024-09-20] MEDS: NON-FORMULARY ITEM 5 MG PO ×2 (08:47→21:34)
[2024-09-20 09:04] LABS: Mean Platelet Volume 13.2 fL (7.4-10.4); Platelet Count 20 10^3/uL (130-400)
--- NOTE | 2024-09-20 10:11 | W.PN.ONC2 ---
Today's Communication / Plan
-
discharge vs transfer planning in progress
Impression
Impression
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
chronic GVHD, involving lungs, skin, mouth, eyes - recently started axatilimab
chronic thrombocytopenia (often in the 40-50 range)
Dyspnea
Plan
Plan
Current GVHD regimen as outlined by Dr. Lea -Jakafi 5mg bid (dose reduced for thrombocytopenia), prednisone 30mg daily, and belumosudil 200mg
Axatilimab has a 13% incidence of edema
Gentle diuresis per primary team, elevation, wrapping of legs
Thrombocytopenia is chronic per patient
Monitor CBC regularly, watch for bleeding. Transfuse PLT < 15K with leukoreduced irradiated products.
Further mgmt of cGVHD per Dr Lea et lizzette at [place], awaiting transfer or discharge for outpatient follow up
Subjective/Objective
Subjective
no new complaints
Vital Signs:
Vital Signs
Temp Pulse Resp BP Pulse Ox
97.8 F 87 18 113/91 97
09/20/24 07:30 09/20/24 07:42 09/20/24 07:42 09/20/24 07:30 09/20/24 07:42
Lab Results:
Laboratory Data
WBC 3.9 10^3/uL (4.8-10.8) L 09/20/24 07:52
Hgb 9.6 g/dL (13.0-18.0) L 09/20/24 07:52
Plt Count 20 10^3/uL (130-400) L* 09/20/24 07:52
eGFR > 60.00 09/18/24 06:37
[2024-09-20] MEDS: VITAMIN D3 (cholecalciferol) 25 MCG PO (10:25)
[2024-09-20] MEDS: IMODIUM 2 MG PO ×2 (10:25→22:25)
[2024-09-20] MEDS: ZOVIRAX 800 MG PO ×2 (10:25→21:34)
--- NOTE | 2024-09-20 11:22 | CM ---
Patient seen bedside, discussed interest in discharging to rehab ([facility] or [facility]) versus transfer to [facility]. Patient inquiring if he can still get his outpatient infusion while at rehab, will relay to SNF. Per Resident, patient is immuno
compromised and will need people to wear mask if discharged to rehab. CM will place referrals in [facility], will continue to follow for all discharge planning needs.
Plan; transfer to [facility] versus SNF.
[2024-09-20 11:59] LABS: Glucose - Point of Care 146 mg/dl (70-99)
--- NOTE | 2024-09-20 12:38 | W.PN.HOSP.TC ---
Addendum entered and electronically signed by Fili Chavez MD 09/20/24 14:53:
seen and examined by me independently in collaboration with the medical transcriber.
Lab data and imaging data reviewed.
Addendum as below :
Patient is feeling very weak and having difficulty with transfers and ambulation's because of weakness. Has not really done much out of bed to see if he has got any associated dizziness.
Loose stools but no diarrhea. Breathing comfortable. Not requiring oxygen.
Afebrile.
Remains improved from lower extremity edema and weight.
Platelets low and stable.
Feels he is medically stable to be discharged. Follow with Onc as OP.
Pt is agreeable for SNF. CM to look into disposition.
Original Note:
Today's Communication/Plan
-
Discharge to SNF or bed at [facility]. Whichever becomes available first.
Assessment / Plan
Assessment / Plan
Spoke to Dr. Yates over the phone. Stated that okay to send to SNF. However would recommend proper vaccination prior to SNF, individual room, instructions to wear mask before entering room. Will attempt to get patient in [facility] or [facility]
as we know providers who can manage his care there.
Bilateral lower extremity edema secondary to recent IV fluids
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
- One dose 20mg IV lasix in ED
- Echo 65-70% EF
- Unlikely cardiac in nature
- Axatilimab has a 13% incidence of edema, and additional IVF likely also contributed per hemeonc
- wrapping of legs
- Significant improvement over weekend
� PT OT
- Transfer to [facility] when bed available or SNF
Labile BP/lightheadedness
-Potentially volume down after receiving 1 dose of IV diuretic, continued on p.o. diuretics, 2 L urinary output with diuresis
-Hold lasix
-Monitor on telemetry
-EKG sinus tachycardia with PACs
- Spoke to Dr. Yates. Evaluate orthostatics today and Oxygen levels while ambulating. Discharge to SNF if stable per her recommendations
- Follow up on vacciniations prior to SNF discharge
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
-ptl 21->20
-Peripheral smear unremarkable for acute etiology
-If actively bleeding transfuse platelets of less than 30,000
-Without active bleeding transfuse platelets of less than 15,000 per hemeonc
-If hemoglobin less than 7 transfuse PRBC
-Hematology/oncology following
-Anemia, macrocytic/megaloblastic with high MCV. B12 folate within normal limits
Meralgia paresthetica
� In setting of chronic steroid use, recently lowered pregabalin dose
� Patient home pregabalin dose of 100 mg twice daily
� Patient not interested in increasing at this time. He stated dose lowered due to affecting his BP.
- Monitor
Diabetes
-A1c 7.2
-Sliding scale
-Accu-Cheks
-Goal blood glucose 140-180
-Carb controlled diet
Chronic Thompson
-Placed 2 week ago at [facility]
-Changed yesterday -> changed again today as the pt was complaining of retention. Now working well.
-Outpatient urology follow-up
Diarrhea
-3 episode, reported as loose
-CDiff negative start immodium
-Mild continuation
Wound care/Skin tears. 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
-Plan: Vaseline gauze and dry dressing to arms and R knee. ABD pads under Bobo wraps knee high to legs. Air chair cushion placed under intact heels to protect. Instructed patient to take air cushion home upon discharge to use when sitting. Patient
currently just purchased a donut type cushion, recommended not to use donut, air cushion more appropriate. - Per wound care
Will transfer to [place] under the Allo transplant service at [facility] with Dr. Cassandra Benitez
Anticipated Discharge: Within 24 hours
Subjective/Interval History
-
Date of Service: September 20, 2024
Objective Data
-
Labs:
Laboratory Results
09/20/24
07:52
WBC 3.9 L
Hgb 9.6 L
Hct 28.2 L
Plt Count 20 L*
Vital Signs:
Vital Signs
Temp Pulse Resp BP Pulse Ox
97.8 F 87 18 113/91 97
09/20/24 07:30 09/20/24 07:42 09/20/24 07:42 09/20/24 07:30 09/20/24 11:55
I&O
09/19/24 09/20/24 09/21/24
06:59 06:59 06:59
Intake Total 780 / 780 840 / 840
Output Total 1100 / 1100 800 / 800
Balance -320 / -320 40 / 40
Review of Systems
-
History Source: Patient
Respiratory: Reports Trouble Breathing (At baseline)
Cardiac: Reports No Symptoms
Abdomen/GI: Reports Diarrhea (Mild diarrhea)
Genitourinary: Reports No Symptoms
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
Physical Exam
-
General: No Apparent Distress and Comfortable
Respiratory: Clear to Auscultation
Cardiac: Regular Rhythm and S1/S2
GI: Soft, Nontender, Nondistended and Normal Bowel Sounds
Musculoskeletal: No Edema
Skin: Warm
Neuro: AO x 3
Psych: Calm
[2024-09-20 16:50] LABS: Glucose - Point of Care 248 mg/dl (70-99)
[2024-09-20] MEDS: NOVOLOG FLEXPEN-LOW RESISTANCE 2 UNITS SC (16:56)
[2024-09-20] MEDS: FLUAD (65 yr+) 2024-2025 FORMULA 0.5 ML IM (17:35)
[2024-09-20 20:38] LABS: Glucose - Point of Care 155 mg/dl (70-99)
[2024-09-20] MEDS: FLOMAX 0.4 MG PO (21:34)
[2024-09-20] MEDS: LYRICA PO (21:34)
[2024-09-21 03:20] VITALS: BP 110/83
[2024-09-21 06:00] VITALS: BMI 34.9
[2024-09-21 07:00] VITALS: BP 109/82
[2024-09-21 07:43] LABS: Hematocrit 26.6 % (39.0-52.0); Hemoglobin 9.2 g/dL (13.0-18.0); Mean Corp Hgb Conc. 34.6 g/dL (33.0-37.0); Mean Corpuscular Hgb 40.4 pg (27.0-31.0); Mean Corpuscular Volume 116.7 fL (80.0-94.0); Mean Platelet Volume 12.5 fL (7.4-10.4); Platelet Count 20 10^3/uL (130-400); Red Blood Cell Count 2.28 10^6/uL (4.70-6.10); White Blood Cell Count 3.5 10^3/uL (4.8-10.8)
[2024-09-21] MEDS: THERAGRAN 1 TABLET PO (07:57)
[2024-09-21] MEDS: GLUCOPHAGE 500 MG PO ×2 (07:57→16:13)
[2024-09-21] MEDS: DELTASONE 30 MG PO (07:57)
[2024-09-21] MEDS: VITAMIN C 1000 MG PO (07:57)
[2024-09-21] MEDS: ZITHROMAX 250 MG PO (07:57)
[2024-09-21] MEDS: PEPCID 20 MG PO ×2 (07:57→20:10)
[2024-09-21] MEDS: LEVAQUIN 500 MG PO (07:58)
[2024-09-21] MEDS: NON-FORMULARY ITEM 300 MG PO (08:00)
[2024-09-21] MEDS: NON-FORMULARY ITEM 5 MG PO ×2 (08:01→20:12)
[2024-09-21] MEDS: NON-FORMULARY ITEM 200 MG PO (08:02)
[2024-09-21] MEDS: NON-FORMULARY ITEM 1 UNIT PO ×3 (08:02→21:43)
[2024-09-21] MEDS: LYRICA PO (08:03)
[2024-09-21] MEDS: BACTRIM DS 800 MG/160 MG 1 TABLET PO (08:05)
[2024-09-21] MEDS: VITAMIN B-12 1000 MCG PO (08:05)
[2024-09-21 08:07] LABS: Glucose - Point of Care 119 mg/dl (70-99)
[2024-09-21] MEDS: SYMBICORT 160/4.5 MCG INHALER 2 PUFF INH ×2 (08:24→20:06)
[2024-09-21] MEDS: NOVOLOG FLEXPEN-LOW RESISTANCE SC (09:14)
--- NOTE | 2024-09-21 09:42 | W.PN.ONC2 ---
Documented by User: CM Sheets 09/21/24 13:41
Today's Communication / Plan
-
awaiting transfer or discharge for outpatient follow
Impression
Impression
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
chronic GVHD, involving lungs, skin, mouth, eyes - recently started axatilimab
chronic thrombocytopenia (often in the 40-50 range)
Dyspnea
Plan
Plan
Current GVHD regimen as outlined by Dr. Lea -Jakafi 5mg bid (dose reduced for thrombocytopenia), prednisone 30mg daily, and belumosudil 200mg
Axatilimab has a 13% incidence of edema
Gentle diuresis per primary team, elevation, wrapping of legs
Thrombocytopenia is chronic per patient
Monitor CBC regularly, watch for bleeding. Transfuse PLT < 15K with leukoreduced irradiated products.
Further mgmt of cGVHD per Dr Lea et al at [place], awaiting transfer or discharge for outpatient follow up
Subjective/Objective
Subjective
no new complaints
denies bleeding
Vital Signs:
Vital Signs
Temp Pulse Resp BP Pulse Ox
97.7 F 82 18 109/82 99
09/21/24 07:00 09/21/24 08:34 09/21/24 08:34 09/21/24 07:00 09/21/24 08:34
Lab Results:
Laboratory Data
WBC 3.5 10^3/uL (4.8-10.8) L 09/21/24 06:40
Hgb 9.2 g/dL (13.0-18.0) L 09/21/24 06:40
Plt Count 20 10^3/uL (130-400) L* 09/21/24 06:40
eGFR > 60.00 09/18/24 06:37

Documented by User: Armen Wong MD 09/21/24 15:09
Plan
Plan
Current GVHD regimen as outlined by Dr. Lea -Jakafi 5mg bid (dose reduced for thrombocytopenia), prednisone 30mg daily, and belumosudil 200mg
Axatilimab has a 13% incidence of edema
Gentle diuresis per primary team, elevation, wrapping of legs
Thrombocytopenia is chronic per patient
Monitor CBC regularly, watch for bleeding. Transfuse PLT < 15K with leukoreduced irradiated products.
Further mgmt of cGVHD per Dr Lea et al at [place], awaiting transfer or discharge for outpatient follow up
Hematology Addendum:
Patient seen and evaluated and agree w/ PATENT LAW SPECIALIST note and plan as outlined
-follow CBC - transfuse prn
-GVHD regimen as per Dr. Lea
-f/u w/ Dr. Lea at [facility]
[2024-09-21] MEDS: ZOVIRAX 800 MG PO ×2 (09:58→21:40)
[2024-09-21] MEDS: VITAMIN D3 (cholecalciferol) 25 MCG PO (09:58)
[2024-09-21 11:00] VITALS: BP 108/69
--- NOTE | 2024-09-21 11:41 | CM ---
Addendum entered by Ni Elam 09/21/24 16:18:
Patient seen bedside, very tearful/anxious, does not have caregivers set for tonight, will have caregivers tomorrow. TT to Resident with update, transport cancelled. Patient will require ambulance transport home tomorrow, transport forms on chart.
CM reassured patient transport will be scheduled tomorrow.
Plan; home with [facility] [phone] and caregiver services, will need ambulance transport, forms on chart.
Addendum entered by Ni Elam 09/21/24 14:38:
transport set up for 5:30 p.m.
Original Note:
CM reviewed chart, reviewed with Hospitalist, stable for discharge today. CM discussed [facility] and [facility] unable to accept patient due care needs exceeding SNF ability, unable to accommodate infusion needs. Referral placed to patients previous
VN agency, [facility], patient has private care through [facility], someone will be at home 4 p.m. to overnight. Patient confirmed will be home upon discharge, no steps to enter, first floor set up. IMM reviewed, signed, placed in chart,
patient declining copy. CM will set up ambulance transport.
Please fax d/c paperwork to [facility]:
Plan; home with , [facility], private caregivers.
--- NOTE | 2024-09-21 11:46 | W.PN.HOSP.TC ---
Addendum entered and electronically signed by Fili Chavez MD 09/21/24 15:21:
Seen and examined by me independently in collaboration with the biomedical engineering director Esme.
Lab data and imaging data reviewed.
Addendum as below :
No issues overnight. no new symptoms.
fluid status remained stable. Oxygenating well on room air. Denies any shortness of breath at rest. No diarrhea.
Afebrile. Hemodynamically stable. No ortho BP drop.
Chest with few basilar crackles. No wheeze.
Abdomen benign.
Alert and oriented x 3.
Patient was not accepted at either of choices of rehab. He wants to go home ,not any other rehab. He wants to go home with services. He is also going to try and mobilize resources through his family.
We notified the oncology team at [facility] regarding discharge and they plan to see him next week for his chemo treatments.
Total time of DC 35 min.
Original Note:
Today's Communication/Plan
-
Patient requested to go home with home care.
Hired 24-hour care for first day with follow-up with PT/OT/VN
Come back to hospital for any additional concerns.
Assessment / Plan
Assessment / Plan
Spoke to Dr. Lea over the phone. Stated that okay to send to SNF. However would recommend proper vaccination prior to SNF, individual room, instructions to wear mask before entering room. Will attempt to get patient in [facility] or [facility]
as we know providers who can manage his care there.
Bilateral lower extremity edema secondary to recent IV fluids
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
- One dose 20mg IV lasix in ED
- Echo 65-70% EF
- Unlikely cardiac in nature
- Axatilimab has a 13% incidence of edema, and additional IVF likely also contributed per hemeonc
- wrapping of legs
- Significant improvement over weekend
� PT OT
- SNF unwilling to accept him with complicated history and medications
- Pt requested to go home with home care. Has set up 24 hour care for first day and regular visits with PT/OT/VN
- Advised pt to come back to the hospital for any concerns.
Labile BP/lightheadedness
-Potentially volume down after receiving 1 dose of IV diuretic, continued on p.o. diuretics, 2 L urinary output with diuresis
-Hold lasix
-Monitor on telemetry
-EKG sinus tachycardia with PACs
- Orthostatic hypotension resolved.
- No desatting events noted on home O2 evaluation.
- SNFs we reached out to were unwilling to accept him with complicated history and medications
- Pt requested to go home with home care. Has set up 24 hour care for first day and regular visits with PT/OT/VN
- Advised pt to come back to the hospital for any concerns.
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
-ptl 20->20
-Peripheral smear unremarkable for acute etiology
-If actively bleeding transfuse platelets of less than 30,000
-Without active bleeding transfuse platelets of less than 15,000 per hemeonc
-If hemoglobin less than 7 transfuse PRBC
-Hematology/oncology following
-Anemia, macrocytic/megaloblastic with high MCV. B12 folate within normal limits
- Will go home with home care
Meralgia paresthetica
� In setting of chronic steroid use, recently lowered pregabalin dose
� Patient home pregabalin dose of 100 mg twice daily
� Patient not interested in increasing at this time. He stated dose lowered due to affecting his BP.
- Monitor
Diabetes
-A1c 7.2
-Sliding scale
-Accu-Cheks
-Goal blood glucose 140-180
-Carb controlled diet
Chronic Thompson
-Placed 2 week ago at [facility]
-Changed yesterday -> changed again today as the pt was complaining of retention. Now working well.
-Outpatient urology follow-up
Diarrhea
-3 episode, reported as loose
-CDiff negative start immodium
-resolved
Wound care/Skin tears. 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
-Plan: Vaseline gauze and dry dressing to arms and R knee. ABD pads under Bobo wraps knee high to legs. Air chair cushion placed under intact heels to protect. Instructed patient to take air cushion home upon discharge to use when sitting. Patient
currently just purchased a donut type cushion, recommended not to use donut, air cushion more appropriate. - Per wound care
Will transfer to [place] under the Allo transplant service at [facility] with Dr. Cassandra Benitez -> No bed for over a week. SNF also difficulty finding a bed. Pt requested to go home as now clinically stable.
Anticipated Discharge: Today
Subjective/Interval History
-
Date of Service: September 21, 2024
Objective Data
-
Labs:
Laboratory Results
09/21/24
06:40
WBC 3.5 L
Hgb 9.2 L
Hct 26.6 L
Plt Count 20 L*
Vital Signs:
Vital Signs
Temp Pulse Resp BP Pulse Ox
97.7 F 82 18 109/82 99
09/21/24 07:00 09/21/24 08:34 09/21/24 08:34 09/21/24 07:00 09/21/24 08:34
I&O
09/20/24 09/21/24 09/22/24
06:59 06:59 06:59
Intake Total 840 / 840 1380 / 1380
Output Total 800 / 800 925 / 925
Balance 40 / 40 455 / 455
Review of Systems
-
History Source: Patient
Constitutional: Reports No Symptoms
EENT: Reports No Symptoms Reported
Respiratory: Reports Trouble Breathing (Baseline)
Cardiac: Reports No Symptoms
Abdomen/GI: Reports No Symptoms
Skin: Reports No Symptoms
Neuro: Reports No Symptoms
Physical Exam
-
General: No Apparent Distress and Comfortable
Respiratory: Clear to Auscultation
Cardiac: Regular Rhythm and S1/S2
GI: Soft, Nontender, Nondistended and Normal Bowel Sounds
Skin: Warm
Neuro: AO x 3
[2024-09-21 13:06] LABS: Glucose - Point of Care 220 mg/dl (70-99)
[2024-09-21] MEDS: NOVOLOG FLEXPEN-LOW RESISTANCE 2 UNITS SC (13:23)
[2024-09-21 15:00] VITALS: BP 101/67
[2024-09-21 16:12] LABS: Glucose - Point of Care 257 mg/dl (70-99)
--- NOTE | 2024-09-21 17:29 | W.DCSUMMARY ---
Documented by User: Esme Crespo MD, Resident 09/21/24 17:38
Discharge Summary
Discharge Data
Date of Admission: 09/13/24
Date of Discharge: 09/21/24
-
Pending Results: No
Hospital Course
Primary diagnosis:
Bilateral lower extremity edema
Adverse reaction to axatilimab
Meralgia paresthetica
Secondary diagnosis:
Chronic luiaj-jpjhdg-tdvf disease
AML status post bone marrow transplant
Chronic thrombocytopenia
Type II diabetes
BPH
Asbestos/pulmonary fibrosis
Hospital course:
74-year-old man with past medical history of AML status post bone marrow transplant, chronic nigoq-wrvhbx-hchu disease, chronic thrombocytopenia presents to [facility] on 09-10-2024 after his visiting nurse noted significant increase in his
lower extremity edema and recommended him to come. Patient follows at [facility] for his yhcui-ljfhwf-knwe disease. He was recently discharged from [facility] one week prior to presentation at ED after being found hypotensive during routine GVHD infusion
treatment and was admitted for further workup. Since discharge from [facility], lower extremity swelling continued to increase. Patient was admitted, started on 20 mg IV Lasix and continued on 40 mg Lasix p.o. daily. Workup for congestive heart failure
was done. Checks x-ray showed no signs of acute pulmonary process, BNP 550, echo showed preserved ejection fraction 65 to 70%. On 09/11, patient started to feel very lightheaded. Labile blood pressure with drops. Diuretics were hold, fluid bolus
given. Lightheadedness and labile BP continued. Heme-onc, cardiology, ENT was consulted. Cardiology ruled out cardiac etiology. ENT was unsure. Heme-onc noted that patient's new experimental medication axatilimab has side effects of lower
extremity edema in 13% of patients. Suspected that patient's current symptoms could potentially be related and we were unnecessarily diuresing him resulting in lower BP. Patient reached out to Dr. Millicent Lea at [facility] and she requested that he
be transferred there for further workup. Patient was set up for transfer for [facility] upon bed availability. During the wait time, patient's platelet counts were consistently low ranging from 18-40. Peripheral blood smear unremarkable for acute
etiology. After over a week of waiting for bed placement, discussions about SNF and home care began as patient improved. He was also seen by neurology and diagnosed with Meralgia paresthetica with right anterior thigh numbness proximal to the knee.
No changes in his pregabalin were made as patient stated prior pregabalin dose was decreased due to fear of hypotension in the outpatient setting. SNF's in the local area were unwilling to accept him due to his complicated past medical history and
specialized medications. Ultimately, patient requested to go home with PT/OT given other options were not working out.
Today, patient was discharged with plans to go home with a 24-hour aide during the first day set up by the patient, and PT/OT/VN nursing. Patient advised to come back to the hospital if he had any additional concerns.
Discharge Plan
-
Patient Disposition: Home with Home Care
Discharge Diagnosis/Procedures: Bilateral lower extremity edema, adverse reaction to axatilimab
Condition: Fair
Diet: As tolerated
Activity: As tolerated and With Walker
Driving Restrictions: No driving
Other Services: VN, PT and OT
Activity Restrictions/Additional Instructions:
Wound Care Instructions
Gluteal cleft/buttocks: barrier cream daily and prn soilage.
Arms and R knee: clean with soap and water, Vaseline gauze and dry dressing change q other day and prn drainage.
Legs: ABD pads prn drainage, Bobo wraps knee high daily. (Can resume use of own compression stockings instead of Bobo wraps)
Air chair cushion when sitting
frequent turning when in bed
leg elevation when sitting
Barrier cream to sores on bottom
Follow up at wound care center(*If wounds not healing) call for an appointment.
Referrals:
Jama Falcon MD [Family Provider] - in less than 1 week
Prescriptions:
New
pregabalin 100 mg Capsule
100 mg PO BID 30 Days Qty: 60 0RF
Continued
acyclovir 800 mg tablet
800 mg PO BID@1000,2200
famotidine [Pepcid] 20 mg Tablet
20 mg PO BID Qty: 0
cyanocobalamin (vitamin B-12) [Vitamin B-12] 1,000 mcg Tablet
1,000 mcg PO MOWEFR
tamsulosin 0.4 mg capsule
0.4 mg PO HS
cholecalciferol (vitamin D3) [Vitamin D3] 25 mcg (1,000 unit) Tablet
25 mcg PO DAILY@1000
albuterol sulfate 90 mcg/actuation HFA aerosol inhaler
1 puff INHALATION R Q4HPRN PRN (Reason: sob)
metformin 500 mg tablet
500 mg PO BIDWMEAL
ascorbic acid (vitamin C) 1,000 mg tablet
1,000 mg PO DAILY
sulfamethoxazole-trimethoprim 800-160 mg tablet
1 tab PO MOWEFR
erythromycin 5 mg/gram (0.5 %) ointment
1 applic BOTH EYES HS
budesonide-formoterol 160-4.5 mcg/actuation HFA aerosol inhaler
2 puff INHALATION R BID
Jakafi 5 mg tablet
5 mg PO BID
Rezurock 200 mg tablet
200 mg PO DAILY
therapeutic multivitamin Tablet
1 tab PO DAILY
levofloxacin 500 mg Tablet
500 mg PO DAILY
insulin aspart U-100 [Novolog FlexPen U-100 Insulin] 100 unit/mL (3 mL) Insulin Pen
1 sliding scale dose SC AC
posaconazole 100 mg Tablet,Delayed Release (Dr/Ec)
300 mg PO DAILY
prednisone 10 mg tablet
30 mg PO DAILY
azithromycin 250 mg tablet
250 mg PO MOWEFR
Discontinued
furosemide 40 mg Tablet
40 mg PO DAILY
pregabalin 150 mg Capsule
100 mg PO BID
Patient Comments:
per pt it was changed to 100mg prior to admission. Dosing is listed on patient portal.
Discharge Orders:
Discharge Patient (As Directed); Ordered 09/21/24
Ordered By: Esme Crespo
Discharge Date and Time
Discharge Date/Time: 09/22/24 13:56
Print Language: BELARUSIAN

Documented by User: Fili Chavez MD 09/22/24 15:57
Discharge Summary
Discharge Data
Date of Admission: 09/13/24
Date of Discharge: 09/22/24
Hospital Course
Primary diagnosis:
Bilateral lower extremity edema
Adverse reaction to axatilimab
Meralgia paresthetica
Secondary diagnosis:
Chronic fnntp-qedgqw-hsvo disease
AML status post bone marrow transplant
Chronic thrombocytopenia
Type II diabetes
BPH
Asbestos/pulmonary fibrosis
Hospital course:
74-year-old man with past medical history of AML status post bone marrow transplant, chronic akbrt-qxtxxq-srkw disease, chronic thrombocytopenia presents to [facility] on 09-10-2024 after his visiting nurse noted significant increase in his
lower extremity edema and recommended him to come. Patient follows at [facility] for his zxtel-spfunw-jvmt disease. He was recently discharged from [facility] one week prior to presentation at ED after being found hypotensive during routine GVHD infusion
treatment and was admitted for further workup. Since discharge from [facility], lower extremity swelling continued to increase. Patient was admitted, started on 20 mg IV Lasix and continued on 40 mg Lasix p.o. daily. Workup for congestive heart failure
was done. Checks x-ray showed no signs of acute pulmonary process, BNP 550, echo showed preserved ejection fraction 65 to 70%. On 09/11, patient started to feel very lightheaded. Labile blood pressure with drops. Diuretics were hold, fluid bolus
given. Lightheadedness and labile BP continued. Heme-onc, cardiology, ENT was consulted. Cardiology ruled out cardiac etiology. ENT was unsure. Heme-onc noted that patient's new experimental medication axatilimab has side effects of lower
extremity edema in 13% of patients. Suspected that patient's current symptoms could potentially be related and we were unnecessarily diuresing him resulting in lower BP. Patient reached out to Dr. Millicent Lea at [facility] and she requested that he
be transferred there for further workup. Patient was set up for transfer for [facility] upon bed availability. During the wait time, patient's platelet counts were consistently low ranging from 18-40. Peripheral blood smear unremarkable for acute
etiology. After over a week of waiting for bed placement, discussions about SNF and home care began as patient improved. He was also seen by neurology and diagnosed with Meralgia paresthetica with right anterior thigh numbness proximal to the knee.
No changes in his pregabalin were made as patient stated prior pregabalin dose was decreased due to fear of hypotension in the outpatient setting. SNF's in the local area were unwilling to accept him due to his complicated past medical history and
specialized medications. Ultimately, patient requested to go home with PT/OT given other options were not working out.
Today, patient was discharged with plans to go home with a 24-hour aide during the first day set up by the patient, and PT/OT/VN nursing. Patient advised to come back to the hospital if he had any additional concerns.
Discharge Plan
-
Patient Disposition: Home with Home Care
Discharge Diagnosis/Procedures: Bilateral lower extremity edema, adverse reaction to axatilimab
Condition: Fair
Diet: As tolerated
Activity: As tolerated and With Walker
Driving Restrictions: No driving
Other Services: VN, PT and OT
Activity Restrictions/Additional Instructions:
Wound Care Instructions
Gluteal cleft/buttocks: barrier cream daily and prn soilage.
Arms and R knee: clean with soap and water, Vaseline gauze and dry dressing change q other day and prn drainage.
Legs: ABD pads prn drainage, Bobo wraps knee high daily. (Can resume use of own compression stockings instead of Bobo wraps)
Air chair cushion when sitting
frequent turning when in bed
leg elevation when sitting
Barrier cream to sores on bottom
Follow up at wound care center(*If wounds not healing) call for an appointment.
Referrals:
Jama Falcon MD [Family Provider] - in less than 1 week
Prescriptions:
New
pregabalin 100 mg Capsule
100 mg PO BID 30 Days Qty: 60 0RF
Continued
acyclovir 800 mg tablet
800 mg PO BID@1000,2200
famotidine [Pepcid] 20 mg Tablet
20 mg PO BID Qty: 0
cyanocobalamin (vitamin B-12) [Vitamin B-12] 1,000 mcg Tablet
1,000 mcg PO MOWEFR
tamsulosin 0.4 mg capsule
0.4 mg PO HS
cholecalciferol (vitamin D3) [Vitamin D3] 25 mcg (1,000 unit) Tablet
25 mcg PO DAILY@1000
albuterol sulfate 90 mcg/actuation HFA aerosol inhaler
1 puff INHALATION R Q4HPRN PRN (Reason: sob)
metformin 500 mg tablet
500 mg PO BIDWMEAL
ascorbic acid (vitamin C) 1,000 mg tablet
1,000 mg PO DAILY
sulfamethoxazole-trimethoprim 800-160 mg tablet
1 tab PO MOWEFR
erythromycin 5 mg/gram (0.5 %) ointment
1 applic BOTH EYES HS
budesonide-formoterol 160-4.5 mcg/actuation HFA aerosol inhaler
2 puff INHALATION R BID
Jakafi 5 mg tablet
5 mg PO BID
Rezurock 200 mg tablet
200 mg PO DAILY
therapeutic multivitamin Tablet
1 tab PO DAILY
levofloxacin 500 mg Tablet
500 mg PO DAILY
insulin aspart U-100 [Novolog FlexPen U-100 Insulin] 100 unit/mL (3 mL) Insulin Pen
1 sliding scale dose SC AC
posaconazole 100 mg Tablet,Delayed Release (Dr/Ec)
300 mg PO DAILY
prednisone 10 mg tablet
30 mg PO DAILY
azithromycin 250 mg tablet
250 mg PO MOWEFR
Discontinued
furosemide 40 mg Tablet
40 mg PO DAILY
pregabalin 150 mg Capsule
100 mg PO BID
Patient Comments:
per pt it was changed to 100mg prior to admission. Dosing is listed on patient portal.
Discharge Orders:
Discharge Patient (As Directed); Ordered 09/21/24
Ordered By: Esme Crespo
Discharge Date and Time
Discharge Date/Time: 09/22/24 13:56
Print Language: BELARUSIAN
[2024-09-21] MEDS: NOVOLOG FLEXPEN-LOW RESISTANCE 3 UNITS SC (17:45)
[2024-09-21] MEDS: LYRICA 100 MG PO (20:11)
[2024-09-21 21:01] VITALS: BP 124/85
[2024-09-21 21:40] LABS: Glucose - Point of Care 121 mg/dl (70-99)
[2024-09-21] MEDS: ERYTHROMYCIN 0.5% OPHTHALMIC OINTMENT 1 APPLIC BOTH EYES (21:40)
[2024-09-21] MEDS: FLOMAX 0.4 MG PO (21:40)
[2024-09-21 23:31] VITALS: BP 125/83
[2024-09-22 06:00] VITALS: BMI 35.7
[2024-09-22 07:00] VITALS: BP 105/68
[2024-09-22] MEDS: SYMBICORT 160/4.5 MCG INHALER 2 PUFF INH (07:50)
[2024-09-22] MEDS: DELTASONE 30 MG PO (07:53)
[2024-09-22] MEDS: LYRICA 100 MG PO (07:53)
[2024-09-22] MEDS: THERAGRAN 1 TABLET PO (07:53)
[2024-09-22] MEDS: LEVAQUIN 500 MG PO (07:53)
[2024-09-22] MEDS: VITAMIN C 1000 MG PO (07:53)
[2024-09-22] MEDS: PEPCID 20 MG PO (07:53)
[2024-09-22] MEDS: GLUCOPHAGE 500 MG PO (07:53)
[2024-09-22] MEDS: NON-FORMULARY ITEM 5 MG PO (07:58)
[2024-09-22] MEDS: NON-FORMULARY ITEM 300 MG PO (07:58)
[2024-09-22] MEDS: NON-FORMULARY ITEM 3 UNIT PO (08:10)
[2024-09-22 08:21] LABS: Glucose - Point of Care 126 mg/dl (70-99)
[2024-09-22] MEDS: NON-FORMULARY ITEM 200 MG PO (08:30)
[2024-09-22] MEDS: NOVOLOG FLEXPEN-LOW RESISTANCE SC (08:31)
[2024-09-22 08:43] LABS: Hematocrit 28.7 % (39.0-52.0); Hemoglobin 9.6 g/dL (13.0-18.0); Mean Corp Hgb Conc. 33.4 g/dL (33.0-37.0); Mean Corpuscular Hgb 39.7 pg (27.0-31.0); Mean Corpuscular Volume 118.6 fL (80.0-94.0); Mean Platelet Volume 11.1 fL (7.4-10.4); Platelet Count 22 10^3/uL (130-400); Red Blood Cell Count 2.42 10^6/uL (4.70-6.10); Red Cell Dist. Width 17.2 % (11.5-14.5); White Blood Cell Count 3.7 10^3/uL (4.8-10.8)
[2024-09-22] MEDS: VITAMIN D3 (cholecalciferol) 25 MCG PO (10:17)
[2024-09-22] MEDS: ZOVIRAX 800 MG PO (10:17)
--- NOTE | 2024-09-22 10:48 | CM ---
Chart reviewed and patient is for discharge to home today patient has caregivers set up, transport has been arranged by ambulance 2:30pm-3pm, patient is aware.
Plan; Home with [facility]:
[2024-09-22] MEDS: IMODIUM 2 MG PO (11:20)
[2024-09-22 12:02] LABS: Glucose - Point of Care 204 mg/dl (70-99)
[2024-09-22 13:00] VITALS: BP 116/84
[2024-09-22] MEDS: NOVOLOG FLEXPEN-LOW RESISTANCE 2 UNITS SC (13:01)
== END 2024-09-22 13:56 | disposition home health service (06) | DRG 641 ==
LOC: 4 WEST ACU 17:14
PROVIDERS: Nurse Practitioner Family; Nurse Practitioner Gerontology; ADMITTING PHYSICIAN Hospitalist; ATTENDING PHYSICIAN Internal Medicine; CONSULT PHYSICIAN Internal Medicine Cardiovascular Disease; CONSULT PHYSICIAN Internal Medicine Hematology & Oncology; CONSULT PHYSICIAN Otolaryngology; EMERGENCY PHYSICIAN Emergency Medicine; FAMILY PHYSICIAN Family Medicine; OTHER PHYSICIAN Psychiatry & Neurology Neurology
DX: E87.79 Other fluid overload (principal); C92.00 Acute myeloblastic leukemia, not having achieved remission; D89.811 Chronic graft-versus-host disease; Z94.81 Bone marrow transplant status; I47.10 Supraventricular tachycardia, unspecified; I47.20 Ventricular tachycardia, unspecified; D61.818 Other pancytopenia; Z66 Do not resuscitate; D69.6 Thrombocytopenia, unspecified; I10 Essential (primary) hypertension; G57.10 Meralgia paresthetica, unspecified lower limb; Z75.1 Person awaiting admission to adequate facility elsewhere; T50.995A Adverse effect of other drugs, medicaments and biological substances, initial encounter; I95.1 Orthostatic hypotension; L89.312 Pressure ulcer of right buttock, stage 2; J84.10 Pulmonary fibrosis, unspecified; Z11.52 Encounter for screening for COVID-19
CPT/HCPCS: 93308; 36600; 71046; 80048; 80053; 82607; 82746; 82805; 82962; 83036; 83735; 83880; 85025; 85027; 87070; 87324; 87449; 87811; 90662; 93005; 93321; 93325; 94640; 94762; 96374; 97163; 97167; 97530; 97535; 99285; G0008

== ENCOUNTER 2024-09-23 17:13 | Inpatient (IN) | payer MEDICARE, OTHER, SELFPAY ==
[2024-09-23] VITALS (8 sets, daily range): BP systolic 94–110; BP diastolic 60–92; BMI 36.2
[2024-09-23 11:32] LABS: Hematocrit 30.7 % (39.0-52.0); Hemoglobin 10.5 g/dL (13.0-18.0); Mean Corp Hgb Conc. 34.2 g/dL (33.0-37.0); Mean Corpuscular Hgb 40.4 pg (27.0-31.0); Mean Corpuscular Volume 118.1 fL (80.0-94.0); Red Cell Dist. Width 17.6 % (11.5-14.5); White Blood Cell Count 6.6 10^3/uL (4.8-10.8)
--- NOTE | 2024-09-23 11:35 | ED.GENMED ---
History of Present Illness
<Alley Chaudhari PA-C - Last Filed: 09/23/24 17:05>
General
Chief Complaint: Weakness
Source: patient
Exam Limitations: none
Time Seen by Provider: 09/23/24 11:05
Nursing documentation reviewed up to this point in time: agreed with
History of Present Illness
History of Present Illness:
74 y/o M with history of AML status post bone marrow transplant in 2022 at [facility], chronic refcn-kmbyyv-mkqr disease causing mostly pulmonary issues, chronic thrombocytopenia presents for generalized weakness after being discharged from "[facility] yesterday. Patient had presented on 11�7 and stayed until 11�15 for lower extremity edema which was likely to be a secondary effect from a treatment use for his hesju-dzxdpq-nfpb disease. He is involved in a clinical trial at "[facility] and was unable to be transferred from hospital to hospital during this admission despite the hospitalist being concerned that the patient's symptoms were related to his ivdub-ydxadm-tmrh disease. They also tried to find the patient a SNF but
it was difficult because of his complexity of his medications. Ultimately the patient seemed to improve slightly and did wish to try going home but was told to return if he got worse. Patient says after getting home yesterday he was too weak to
get himself out of the chair. He ended up needing to call for help, he never fell but he says he could not put himself back in the chair after being on the edge. He also has had positional dizziness which is also been a symptom that he has been
dealing with but this seemed to get worse especially today. After trying to get up again today and being very dizzy and then very short of breath which is also chronic his called 911. Patient was given a dose of Versed because he was having a
panic attack as well. Patient says he gets severely anxious because of his respiratory issues. He feels much better now. He never had a headache, chest pain, abdominal pain, vomiting. Patient did eat 2 meals yesterday but he chronically has a
dry mouth and feels dehydrated.
Does not sound like he has really had any new symptoms since being discharged but he was highly encouraged to return should he have difficulty being home
Past History
<Alley Chaudhari PA-C - Last Filed: 09/23/24 17:05>
Past History
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
ED Past Surgical History: Orthopedic (Right knee surgery, bilateral rotator cuff repair), Tonsilectomy and Other (Cataract left)
Social History
Tobacco: Non-smoker
Alcohol: None
Drug: None
Living: with family
Phy Exam
<Alley Chaudhari PA-C - Last Filed: 09/23/24 17:05>
Physical Exam
Physical Exam:
GENERAL: Alert , generally weak
EYE: pupils equal and reactive
NECK: Supple
ENT: o/p clr, VERY DRY
CARDIAC: R irregularly irregular, tahcycaridc at times; no murmur
LUNGS: dimisnhed breath sounds bilaterally, no acute respiratory distress, no wheezes/rales/rhonchi
ABDOMEN: Soft, without focal tenderness, no r/g, no cvat, normal bowel sounds
nguyễn
NEUROLOGICAL: Alert and oriented, no focal neuro deficits
SKIN: Warm and dry, skin intact.
MUSCULOSKELETAL: mild edema; wrapped legs b/l;
PSYCH: Normal and appropriate interaction.
Course
<Alley Chaudhari PA-C - Last Filed: 09/23/24 17:05>
Orders/Labs/Results
Orders:
Orders
09/23/24 11:03
Electrocardiogram (*1) Urgent
Reason for Study: Vertigo / Dizzy
09/23/24 11:04
EKG- Treatment ONCE
09/23/24 11:15
Complete Blood Count/With Diff Urgent
Comprehensive Metabolic Panel Urgent
Magnesium Urgent
Comment: ADD ON
NT-proBNP Urgent
Troponin I Urgent
09/23/24 11:31
Add On- LAB Urgent
Tests Added?: magnesium
09/23/24 16:00
CT Head W/o Iv Contrast Urgent
Comment:
Reason For Exam: new onset right lower extremity weakness
09/23/24 16:18
Admit/Transfer Patient As Directed
Co-Sign Provider:
Level of Care: Inpatient admission
Assign to:: Telemetry
Physician / Group: Hospitalist
Diagnosis: Generalized weakness
Reason for Telemetry: Other
Other Reason for Telemetry: Elevated troponins
Date to Stop Telemetry: 09/25/24
Time to Stop Telemetry: 11:00
Reason for Hospitalization: Generalized weakness
Expected length of stay greater than two midnights?: Yes
ELOS- Estimated Length of Stay in days: 3
I certify the patient meets the requirements for IP care: Yes
PRN Pain Medication Management As Directed
May give lesser potent ordered pain med per pt: Yes
preference::
Protocol:: Medication orders for pain may be administered in a
manner that supports deferring to patient preference
when the pt is:
- Requesting an ordered lesser potent pain medication.
Least to most potent pain medications are defined
as: acetaminophen < NSAID < tramadol < opioids
(morphine, oxycodone, hydromorphone).
- Requesting a lesser dose of the same medication IF
ORDERED.
- Requesting a less intrusive route of administration
if both routes are prescribed by the provider (PO <
IV).
09/23/24 16:21
Code Status As Directed
Resuscitation Status: Do not resuscitate
Reached after discussion with pt or family/Healthcare POA: Yes
DNR Bracelet Application ONCE
09/23/24 16:35
Troponin I Q6H
09/23/24 17:01
Venous Doppler Lwr Ext Bilat [US Periph Venous LOWER Ext Zac] Urgent
Comment:
Reason For Exam: Lower extremity swelling
09/23/24 22:30
Troponin I Q6H
09/24/24 04:30
Troponin I Q6H
09/24/24 10:30
Troponin I Q6H
09/25/24 11:00
DC Protocol for Telemetry ONCE
Abnormal Lab Results
09/23/24 09/23/24
11:15 16:35
RBC 2.60 L 10^6/uL
(4.70-6.10)
Hgb 10.5 L g/dL
(13.0-18.0)
Hct 30.7 L %
(39.0-52.0)
MCV 118.1 H fL
(80.0-94.0)
MCH 40.4 H pg
(27.0-31.0)
RDW 17.6 H %
(11.5-14.5)
Plt Count 28 L* D 10^3/uL
(130-400)
Abs Immat Gran (auto) 0.2 H 10^3/uL
(0-0.05)
Absolute Monos (auto) 0.9 H 10^3/uL
(0.1-0.6)
Immature Gran % 2.9 H %
(0-0.5)
Monocytes % 13.5 H %
(1.7-9.3)
BUN 33 H mg/dl
(9-20)
Glucose 182 H mg/dl
(70-99)
Troponin I 0.082 H* ng/ml 0.067 H* ng/ml
Total Protein 6.0 L g/dl
(6.3-8.2)
09/23/24 11:15
09/23/24 11:15
Vital Signs
Initial and Last Documented VS:
Initial Vital Signs
Temp Pulse Resp BP Pulse Ox
97.7 F 55 16 110/69 97
09/23/24 11:00 09/23/24 11:00 09/23/24 11:00 09/23/24 11:00 09/23/24 11:00
Last Documented Vital Signs
Temp Pulse Resp BP Pulse Ox
97.7 F 95 22 106/89 97
09/23/24 11:00 09/23/24 15:45 09/23/24 15:45 09/23/24 16:00 09/23/24 16:08
<Abelino Weinberg, DO - Last Filed: 09/23/24 17:36>
Orders/Labs/Results
Orders:
Orders
09/23/24 11:03
Electrocardiogram (*1) Urgent
Reason for Study: Vertigo / Dizzy
09/23/24 11:04
EKG- Treatment ONCE
09/23/24 11:15
Complete Blood Count/With Diff Urgent
Comprehensive Metabolic Panel Urgent
Magnesium Urgent
Comment: ADD ON
NT-proBNP Urgent
Troponin I Urgent
09/23/24 11:31
Add On- LAB Urgent
Tests Added?: magnesium
09/23/24 16:00
CT Head W/o Iv Contrast Urgent
Comment:
Reason For Exam: new onset right lower extremity weakness
09/23/24 16:18
Admit/Transfer Patient As Directed
Co-Sign Provider:
Level of Care: Inpatient admission
Assign to:: Telemetry
Physician / Group: Hospitalist
Diagnosis: Generalized weakness
Reason for Telemetry: Other
Other Reason for Telemetry: Elevated troponins
Date to Stop Telemetry: 09/25/24
Time to Stop Telemetry: 11:00
Reason for Hospitalization: Generalized weakness
Expected length of stay greater than two midnights?: Yes
ELOS- Estimated Length of Stay in days: 3
I certify the patient meets the requirements for IP care: Yes
PRN Pain Medication Management As Directed
May give lesser potent ordered pain med per pt: Yes
preference::
Protocol:: Medication orders for pain may be administered in a
manner that supports deferring to patient preference
when the pt is:
- Requesting an ordered lesser potent pain medication.
Least to most potent pain medications are defined
as: acetaminophen < NSAID < tramadol < opioids
(morphine, oxycodone, hydromorphone).
- Requesting a lesser dose of the same medication IF
ORDERED.
- Requesting a less intrusive route of administration
if both routes are prescribed by the provider (PO <
IV).
09/23/24 16:21
Code Status As Directed
Resuscitation Status: Do not resuscitate
Reached after discussion with pt or family/Healthcare POA: Yes
DNR Bracelet Application ONCE
09/23/24 16:35
Troponin I Q6H
09/23/24 17:01
Venous Doppler Lwr Ext Bilat [US Periph Venous LOWER Ext Zac] Urgent
Comment:
Reason For Exam: Lower extremity swelling
09/23/24 22:30
Troponin I Q6H
09/24/24 04:30
Troponin I Q6H
09/24/24 10:30
Troponin I Q6H
09/25/24 11:00
DC Protocol for Telemetry ONCE
Abnormal Lab Results
09/23/24 09/23/24
11:15 16:35
RBC 2.60 L 10^6/uL
(4.70-6.10)
Hgb 10.5 L g/dL
(13.0-18.0)
Hct 30.7 L %
(39.0-52.0)
MCV 118.1 H fL
(80.0-94.0)
MCH 40.4 H pg
(27.0-31.0)
RDW 17.6 H %
(11.5-14.5)
Plt Count 28 L* D 10^3/uL
(130-400)
Abs Immat Gran (auto) 0.2 H 10^3/uL
(0-0.05)
Absolute Monos (auto) 0.9 H 10^3/uL
(0.1-0.6)
Immature Gran % 2.9 H %
(0-0.5)
Monocytes % 13.5 H %
(1.7-9.3)
BUN 33 H mg/dl
(9-20)
Glucose 182 H mg/dl
(70-99)
Troponin I 0.082 H* ng/ml 0.067 H* ng/ml
Total Protein 6.0 L g/dl
(6.3-8.2)
09/23/24 11:15
09/23/24 11:15
Vital Signs
Initial and Last Documented VS:
Initial Vital Signs
Temp Pulse Resp BP Pulse Ox
97.7 F 55 16 110/69 97
09/23/24 11:00 09/23/24 11:00 09/23/24 11:00 09/23/24 11:00 09/23/24 11:00
Last Documented Vital Signs
Temp Pulse Resp BP Pulse Ox
97.7 F 95 22 106/89 97
09/23/24 11:00 09/23/24 15:45 09/23/24 15:45 09/23/24 16:00 09/23/24 16:08
<Alley Chaudhari PA-C - Last Filed: 09/23/24 17:05>
MDM/Problems Addressed
MDM/Problems Addressed:
dmitted under dr. august discharged yesterday
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
ongoing sypmtoms
during recent admission was trying to get transferred to [facility], apparently a dr. guillermo onc [facility] nknew about him but there were no beds
pt was then trying to get to a snf thinking that home would be too hard for him but no SNF woul dtakehim due to his complexity of medications
he tried going home but was extremely weak and sob and fatigued, as well as dehdyrated;
here work up is significant for mild tachycardia, rhythm looks sinus with frequent PACs; no fever
also has mild trop elevation; no chest pain
no ischemia on ekg
will trend trop
pt will require admission
dr. august said he would accept him but wanted me to try to get the patient to [facility] but they have no beds; he was accepted at [facility] by dr. calderon whom i spoke with
but there are no bed.
s
<Alley Chaudhari PA-C - Last Filed: 09/23/24 17:05>
*Critical Care Note
Total Time (30-74mins, 75-104mins- exclusive of procedures): Not Applicable
ED Attending Note
<Alley Chaudhari PA-C - Last Filed: 09/23/24 17:05>
-
Portions of this chart may have been created with voice recognition software.� Occasional wrong word or��sound alike� substitutions may have occurred due to the inherent limitations of voice recognition software.
<Abelino Weinberg DO - Last Filed: 09/23/24 17:36>
ED Attending Note
I performed the substantive portion of visit, reviewed & personally made and approve the management plan that is documented in note by myself or TATA.: Yes
Discharge Plan
Departure
Patient Disposition: Admit
Date of Disposition: 09/23/24
Time of Disposition: 12:24
Admit to: Telemetry
Presentation/result/management discussed w/ accepting MD/DO: Hospitalist
Condition: Fair
Covid-19: Not Applicable
Discharge Problem:
Weakness
Interventions
Interventions:
*Risk Screen - Suicide Last Done: 09/23/24 11:04
*General Assessment Last Done: 09/23/24 11:04
*Neglect/Abuse Screening Last Done: 09/23/24 11:04
ED- Fall Risk Assessment Last Done: 09/23/24 17:12
*ED COVID-19 Vaccine History Last Done: 09/23/24 11:04
*Nursing Disposition Last Done: 09/23/24 17:12
ED- Cardiac Assessment Last Done: 09/23/24 11:06
ED- Neurological Assessment Last Done: 09/23/24 11:06
ED- Pulmonary Assessment Last Done: 09/23/24 11:06
[2024-09-23 11:42] LABS: ALT (SGPT) 39 U/L (0-50); AST (SGOT) 34 U/L (17-59); Alkaline Phosphatase 52 U/L (38-126); Blood Urea Nitrogen 33 mg/dl (9-20); Calcium 9.2 mg/dl (8.4-10.2); Carbon Dioxide 28 mmol/L (22-30); Chloride 98 mmol/L (98-107); Glucose 182 mg/dl (70-99); Potassium 4.4 mmol/L (3.5-5.1); Sodium 135 mmol/L (135-145); eGFR > 60.00
[2024-09-23 11:48] LABS: Magnesium 1.9 mg/dl (1.6-2.3)
[2024-09-23 11:56] LABS: NT-proBNP 771 pg/ml; Troponin I 0.082 ng/ml
[2024-09-23 11:59] LABS: % Basophils 0.3 % (0-2); % Eosinophils 0.5 % (0-6); % Immature Granulocytes 2.9 % (0-0.5); % Lymphocytes 28.9 % (20.5-51.1); % Monocytes 13.5 % (1.7-9.3); % Neutrophils 53.9 % (42.2-75.2); Absolute Immature Granulocytes 0.2 10^3/uL (0-0.05); Absolute Lymphocytes 1.9 10^3/uL (1.2-3.4); Absolute Monocytes 0.9 10^3/uL (0.1-0.6); Absolute Neutrophils 3.5 10^3/uL (1.4-6.5); Platelet Count 28 10^3/uL (130-400)
--- NOTE | 2024-09-23 15:44 | W.PN.UPDATE ---
Update Note
Progress Note Update
This is an addendum to H&P written by resident Dr. Crespo
Mr. Jian Gold is a 74 yo man with hx AML status post bone marrow transplant, chronic jrhrd-dngmse-thnm disease (involving lungs, skin, mouth, eyes), chronic thrombocytopenia, DM II, BPH, pulmonary fibrosis, admission 09/13-09/21/24 with lower
extremity swelling thought 2/2 chemotherapy (s/p diuresis which was stopped in setting of symptoms of feeling lightheaded) with attempts to transfer to [facility] unsuccessful, patient discharged home (SNF unwilling to accept 2/2 complicated medical
history) now represents with generalized weakness. Patient states that given his home furniture is lower than that at the hospital, transfers were too difficult at home. He tried to get out of his chair but was unable to therefore calling EMS
again to bring back to the hospital. He denies chest pain and states that shortness of breath is baseline. The positional vertigo is described as losing focus when sitting up needing moments to normalize - this was occurring last hospitalization
in setting of negative orthostatic VS.
Triage vitals stable.
Labs with WBC 6.6, Hg 10.5, PLT 28 (chronic), Na 135, K+ 4.4, Cr 0.9, Glucose 182, liver enzymes WNL< Trop 0.082
Ambulatory Dysfunction and Weakness
Positional Vertigo/Lightheadedness
-given patient's complicated history of GVHD and medication interactions, decision made to transfer to [facility] and he has been accepted. However, there is no bed and will be therefore admitted here while awaiting transfer. He is accepted by Dr. Perdomo
-obtain head CT
-admit to med/surg
-PT/OT
Edema
-concern raised last time that Axatilimab (patient's chemotherapy) can cause edema
-he was started on Lasix but this was stopped with symptoms of lightheadedness
-he reports increased swelling RLE - will obtain b/l LE Doppler
Non-RI Troponin Elevation
-no chest pain
-will not start aspirin in setting of thrombocytopenia
-trend until peaks
-OK to hold off on cardiology consult at this time as do not suspect ACS
Anxiety
-received a dose of Versed in the ER for panic attack and now improved
GVHD
-continue SYSTEM ENGINEER regimen: Jakafi 5mg PO BID, Prednisone 30mg PO QD, Belumosudil 200mg QD
-continue prophylactic Acyclovir, Azithromycin, Levaquin, Posaconazole, Bactrim
Pancytopenia 2/2 hx AML s/p bone marrow transplant
Meralgia Paresthetica involving right femoral nerve
-diagnosed by Neurology last admission, some increased paresthesias today lower leg
-obtain head CT
BPH
-SYSTEM ENGINEER Flomax
DM
-on Metformin at home
DVT PPx SCD
DNR
--- NOTE | 2024-09-23 15:51 | HPS.HSE ---
Family Physician
-
Family Physician: INTERVIEWE UNKNOWN - PT NOT
Chief Complaint
-
Generalized weakness
History of Present Illness
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
diabetes, chronic thrombocytopenia, meralgia paresthetica presents to the ED with generalized weakness. Patient was recently discharged from [facility] after long stay awaiting transfer to [facility]. Patient is on experimental trial for koajc-boozqf-xaoa
disease with Dr. Millicent Lea at [facility] taking axatilimab. Previously presented to [facility] 09/10/2024 1 week after second dose of axatilimab at patient with increasing lower extremity edema. VN recommended him to come in for workup.
Cardiac work up was unremarkable with BNP 550, LVEF 65-70% with no pulmonary edema on chest x-ray. Still started on mild diuresis. However after receiving diuresis, patient proceeded to feel very lightheaded, dizzy, like his head is floating.
Fluid was given. Lightheadedness continued. Orthostatic vitals were negative. Cardiology did not believe cardiac etiology involved. Heme-onc believed lower extremity edema to be secondary to the axatilimab which shows up in 13% of patients. ENT
also evaluated and did not believe ENT etiology. Heme-onc believe could be a side effect of medication. [facility] was contacted and plans to transfer to [place] were made. Patient waited for over a week for a bed to no avail. Discussed potential
discharge to SNF with Dr. Lea as patient appeared clinically stable, however the SNF contacted were not interested in taking him due to the medications he is on. Patient decided that he would go home with home health care despite feeling
generally weak. Patient was discharged on 09/22/2024. Today, patient comes back with generalized weakness. He slid off his chair and was any unable to get back up. He has ongoing positional dizziness, lightheadedness, feeling like his head is
floating when he tries to sit up or stand up. He called EMS and decided to come back to the hospital as he felt being home was unsafe. He was given 1 dose of midazolam by EMS as he was having a panic attack. He felt much more relaxed after that.
In the ED, patient did state that his right lower extremity felt increasingly swollen and numb. He does have known right sided meralgia paresthetica, however that is localized to the anterior thigh. He denies any pain, redness, warmth in the area,
chest pain, heart palpitations, nausea, vomiting. He did have 1 episode of diarrhea last night. Overall, he feels anxious about the current situation. Transfer to [facility] has been set up upon bed availability as current symptoms do seem concerning of
a side effect to extremital medication.
In ED, blood pressure soft, troponin 0.082, proBNP 771, platelets 28 improved from prior. Head CT without contrast pending.
Medical History
Past Medical History
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
paresthetica, anemia, chronic thrombocytopenia)
Past Surgical History: Reports Other (Right knee surgery, bilateral rotator cuff surgery, tonsillectomy, cataract)
Social History
Tobacco: Non-smoker
Alcohol: None
Drug: None
Personal:
Living: With Family
Family History
Family History: Not pertinent
Allergies / Home Medications
Allergies reflects when Allergies were last updated in [facility].
Home Medications with original date entered in [employer]
Allergy/Medication List:
Allergies
Allergy/AdvReac Type Severity Reaction Status Date / Time
strawberry Allergy Anaphylaxis Verified 09/12/24 20:59
Home Medications
acyclovir 800 mg tablet 800 mg PO BID@1000,2200 prophylaxis 11/17/22
famotidine 20 mg tablet (Pepcid) 20 mg PO BID Gastrointestinal issue ##0 11/17/22
cholecalciferol (vitamin D3) 25 mcg (1,000 unit) tablet (Vitamin D3) 25 mcg PO DAILY@1000 Supplement 04/29/23
cyanocobalamin (vitamin B-12) 1,000 mcg tablet (Vitamin B-12) 1,000 mcg PO MOWEFR Supplement 04/29/23
tamsulosin 0.4 mg capsule 0.4 mg PO HS Urinary Issue 04/29/23
albuterol sulfate 90 mcg/actuation aerosol inhaler 1 puff inhalation R Q4HPRN PRN sob 07/01/24
ascorbic acid (vitamin C) 1,000 mg tablet 1,000 mg PO DAILY Supplement 07/01/24
belumosudil 200 mg tablet (Rezurock) 200 mg PO DAILY bone marrow transplant 07/01/24
budesonide-formoterol HFA 160 mcg-4.5 mcg/actuation aerosol inhaler 2 puff inhalation R BID Lung/Breathing Issues 07/01/24
erythromycin 5 mg/gram (0.5 %) eye ointment 1 applic BOTH EYES HS Eye Condition 07/01/24
metformin 500 mg tablet 500 mg PO BIDWMEAL DIABETES 07/01/24
ruxolitinib 5 mg tablet (Jakafi) 5 mg PO BID bone marrow transplant 07/01/24
sulfamethoxazole 800 mg-trimethoprim 160 mg tablet 1 tab PO MOWEFR infection prophylaxis 07/01/24
azithromycin 250 mg tablet 250 mg PO MOWEFR Infection 09/10/24
insulin aspart U-100 100 unit/mL (3 mL) subcutaneous pen (Novolog FlexPen U-100 Insulin aspart) 1 sliding scale dose SC AC Diabetes 09/10/24
levofloxacin 500 mg tablet 500 mg PO DAILY Infection 09/10/24
posaconazole 100 mg tablet,delayed release 300 mg PO DAILY Infection 09/10/24
prednisone 10 mg tablet 30 mg PO DAILY Autoimmune Disorder 09/10/24
therapeutic multivitamin 1 tab PO DAILY Supplement 09/10/24
pregabalin 100 mg capsule 100 mg PO BID Neurological Condition 30 days #60 caps 09/21/24
Review of Systems
-
History Source: Patient
A 12 point ROS was completed and negative except as noted: Yes
Constitutional: Reports No Symptoms
EENT: Reports Other (Dry mouth at baseline)
Respiratory: Reports Trouble Breathing (At baseline)
Cardiac: Reports No Symptoms
Abdomen/GI: Reports Diarrhea (1 episode of diarrhea last night)
: Reports Thompson (Last changed 09/21/2024) and Other
Skin: Reports No Symptoms
Neurological: Reports Numbness (Numbness and weakness in right lower extremity)
Physical Exam
Vital Signs
Vital Signs
Temp Pulse Resp BP Pulse Ox
97.7 F 91 16 108/82 97
09/23/24 11:00 09/23/24 14:00 09/23/24 14:00 09/23/24 14:00 09/23/24 14:04
Physical Exam
General: No Apparent Distress and Comfortable
HEENT: NormoCephalic
Respiratory: Clear
Cardiac: S1/S2 and Regular Rhythm
GI: Soft, Non Tender, Non Distended and Normal Bowel Sounds
Genito-urinary: Deferred by me
Musculoskeletal: Edema, Left Lower Extremity and Edema, Right Lower Extremity
Skin: Warm
Neuro: AO x 3, Nonfocal/grossly intact, Tremors (At baseline) and Other (Increased right hip flexor weakness); No Slurred Speech or Facial Droop
Psych: Calm
Laboratory Results
-
09/23/24 11:15
09/23/24 11:15
Laboratory Results
Total Bilirubin 1.0 mg/dl (0.2-1.3) 09/23/24 11:15
AST 34 U/L (17-59) 09/23/24 11:15
ALT 39 U/L (0-50) 09/23/24 11:15
Alkaline Phosphatase 52 U/L (38-126) 09/23/24 11:15
Troponin I 0.082 ng/ml H* 09/23/24 11:15
Impression/Plan
-
IMPRESSION:
74-year-old male with past medical history of AML status post bone marrow transplant, chronic kwsje-opvrle-fjzg disease presents with generalized weakness, lightheadedness, positional dizziness. Believed to be a side effect to experimental
medication he is on at [facility]. Plans to transfer to [facility] when bed available.
PLAN:
Troponin elevation
-Denies any chest pain, heart palpitations, SOB different from baseline
-EKG no signs of STEMI
-Trend troponin
-Admit to tele
-most likely due to stress
-Consider cardiology consult if troponin continue to uptrend, or symptoms develop
Generalized weakness/lightheadedness with standing/sitting
- Electrolytes within normal limits
- Check orthostatics
� History of chronic steroid use, prior evaluation believed increased weakness in setting of steroid induced myopathy
� Deconditioning, PT OT
- Prior evaluation for cardiac etiologies of lightheadedness previously worked up
- Prior ENT work up also believed no ENT etiology at play
- t/c neurology consult as they have not evaluated him for the lightheadedness
Pancytopenia likely secondary to AML status post bone marrow transplant, GVHD
-Macrocytic anemia, B12 and folate within normal limits
-Transfuse for hemoglobin less than 7
-Thrombocytopenia at baseline
-Peripheral smear unremarkable for acute etiology
-Transfuse for platelets less than 15
-t/c consulting heme-onc
New onset Right leg numbness/swelling
�Head CT pending
� Bilateral lower extremity ultrasound
�Known history of Meralgia paresthetica
Meralgia paresthetica
� In setting of chronic steroid use, recently lowered pregabalin dose
� Patient home pregabalin dose of 100 mg twice daily
� Patient not interested in increasing at this time. He stated dose lowered due to affecting his BP.
- Monitor
History of GVHD
- Continue prophylactic antibiotics, antivirals, antifungals
- Continue Jakafi and Rezurock
History of GVHV lung involvement/asbestos pulm fibrosis
-Baseline shortness of breath
� DuoNebs as needed
Diabetes
-A1c 7.2
-Sliding scale
-Accu-Cheks
-Goal blood glucose 140-180
-Carb controlled diet
Chronic Thompson
-Placed 2 week ago at [facility] for urinary retention
-Last changed 09/21/24
-Outpatient urology follow-up
Diarrhea
-1 episode last night
-Previous diarrhea during hospitalization c.dif (-)
-resolved
DNR
DVT Compression device
Cholesterol lowering diet
[2024-09-23 17:17] LABS: Troponin I 0.067 ng/ml
[2024-09-23] MEDS: SYMBICORT 160/4.5 MCG INHALER 2 PUFF INH (18:12)
--- NOTE | 2024-09-23 18:35 | PTCARENOTE ---
patient transferred to 3W. patient repositioned with RN and PCT, patient with exp wheezes, bilat lung sounds are diminished. Patient on RA 96% and requesting to keep hob below sitting position as it is hard for him to breath. Patient with call whitaker
at bedside. Patient AAOx3, denies pain, with generalized anasarca.
[2024-09-23] MEDS: GLUCOPHAGE 500 MG PO (20:04)
[2024-09-23 20:06] LABS: Glucose - Point of Care 235 mg/dl (70-99)
[2024-09-23] MEDS: GLUCOPHAGE PO (20:06)
[2024-09-23 20:33] LABS: Troponin I 0.073 ng/ml
[2024-09-23] MEDS: ZOVIRAX 800 MG PO (21:34)
[2024-09-23] MEDS: FLOMAX 0.4 MG PO (21:34)
[2024-09-23] MEDS: PEPCID 20 MG PO (21:35)
[2024-09-23] MEDS: NON-FORMULARY ITEM 5 MG PO (21:35)
[2024-09-23] MEDS: LYRICA 100 MG PO (21:37)
--- NOTE | 2024-09-24 02:06 | PTCARENOTE ---
Received pt at change of shift, admission completed as documented.
clarified precautions order with resident - placed on neutropenic & bleeding precautions.
VSS, pt AAOx3, oriented to room. call whitaker within reach. placed on residential monitor #6, NSR.
pt had bag in bed next to him with multiple medications from home, several sent to pharmacy to receive labels for admin (refer to MAR).
skin tears noted on LUE, R knee, stage 2 on sacrum, martin wraps removed from b/l LEs. WOC consult placed.
When turning patient, nystagmus noted. Pt states he is unable to get up due to weakness/dizziness, unable to obtain orthostatic vitals.
CM Arreola placed electronic orders for chronic catheter, pt states that catheter was exchanged his last admission.
Transfer paperwork placed in paper chart to prepare for [facility]. Pt updated on POC.
[2024-09-24 03:33] VITALS: BP 104/60
[2024-09-24 05:22] VITALS: BMI 35.3
[2024-09-24 07:30] VITALS: BP 108/75
[2024-09-24 07:51] LABS: Glucose - Point of Care 128 mg/dl (70-99)
[2024-09-24] MEDS: NOVOLOG FLEXPEN-LOW RESISTANCE SC (07:59)
[2024-09-24] MEDS: DELTASONE 30 MG PO (08:03)
[2024-09-24] MEDS: VITAMIN C 1000 MG PO (08:03)
[2024-09-24] MEDS: THERAGRAN 1 TABLET PO (08:03)
[2024-09-24] MEDS: LEVAQUIN 500 MG PO (08:03)
[2024-09-24] MEDS: PEPCID 20 MG PO (08:03)
[2024-09-24] MEDS: LYRICA 100 MG PO (08:03)
[2024-09-24] MEDS: GLUCOPHAGE 500 MG PO (08:04)
[2024-09-24] MEDS: NON-FORMULARY ITEM 5 MG PO (08:04)
[2024-09-24] MEDS: NON-FORMULARY ITEM 200 MG PO (08:04)
[2024-09-24] MEDS: NOXAFIL 300 MG PO (08:05)
[2024-09-24 08:14] LABS: Hematocrit 26.5 % (39.0-52.0); Hemoglobin 8.8 g/dL (13.0-18.0); Mean Corp Hgb Conc. 33.2 g/dL (33.0-37.0); Mean Corpuscular Hgb 39.3 pg (27.0-31.0); Mean Corpuscular Volume 118.3 fL (80.0-94.0); Red Blood Cell Count 2.24 10^6/uL (4.70-6.10); Red Cell Dist. Width 17.3 % (11.5-14.5); White Blood Cell Count 3.6 10^3/uL (4.8-10.8)
[2024-09-24] MEDS: SYMBICORT 160/4.5 MCG INHALER 2 PUFF INH ×2 (08:24→19:40)
[2024-09-24 08:36] LABS: Troponin I 0.073 ng/ml
[2024-09-24 08:37] LABS: Platelet Count 23 10^3/uL (130-400)
[2024-09-24 09:05] LABS: Blood Urea Nitrogen 23 mg/dl (9-20); Calcium 8.7 mg/dl (8.4-10.2); Carbon Dioxide 28 mmol/L (22-30); Chloride 99 mmol/L (98-107); Estimated Creatinine Clearance > 125 ml/min; Glucose 111 mg/dl (70-99); Potassium 3.7 mmol/L (3.5-5.1); Sodium 138 mmol/L (135-145); eGFR > 60.00
--- NOTE | 2024-09-24 09:15 | PTCARENOTE ---
Lab informed this RN of critical platelet count, result= 23. made aware.
[2024-09-24] MEDS: VITAMIN D3 (cholecalciferol) 25 MCG PO (09:40)
[2024-09-24] MEDS: ZOVIRAX 800 MG PO (09:40)
[2024-09-24 10:06] VITALS: BP 107/70; PULSE 112; PULSE 116; PULSE 62; O2SAT 97
[2024-09-24 11:00] VITALS: BP 101/63
--- NOTE | 2024-09-24 11:00 | PTCARENOTE ---
Moderate amount of urine observed leaking from Thompson catheter. made aware. Will continue to monitor for leaking.
--- NOTE | 2024-09-24 11:22 | WOUNDNOTE ---
[facility] RN note: Patient admitted with weakness. Patient for transfer to [facility] when bed available.
See H&P for complete history.
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
Wound Location and type/assessment: Patient admitted with: small stage 2 coccyx and R buttocks pressure injuries. Scabbed skin tears/abrasions on R arm, elbow, L hand, R dorsal foot. L forearm dermal skin tears. Toes warm. Trace ankle edema.
Appetite: good.
Pressure redistribution devices in place: [facility] Air bed. Patient can reposition buttocks in chair.
Plan: Silicone border foam maintained on sacral/coccyx. Air chair cushion given. Assisted JARROD Lujan with transferring patient from recliner chair to stretcher to [facility].
Will confirm orders with hospitalist and discussed with JARROD Lujan.
Care plan to be updated and will follow as needed.
Recommend follow up at wound care center upon discharge.
[2024-09-24 12:45] LABS: Glucose - Point of Care 185 mg/dl (70-99)
[2024-09-24] MEDS: NOVOLOG FLEXPEN-LOW RESISTANCE 1 UNITS SC (14:03)
--- NOTE | 2024-09-24 14:39 | W.PN.HOSP.TC ---
Today's Communication/Plan
-
Assessment / Plan
Assessment / Plan
Physical Exam
NAD, resting comfortably in bed
Scleral anicteric
Moist mucous membranes
No JVD
CTA bilateral
Normal S1-S2 no murmurs
Soft nontender nondistended bowel sounds active
-Thompson - Indwelling bag with yellow urine
No peripheral pitting edema, ecchymosis on UE
Moves extremities spontaneously, LE wrapped in blue and tightly with Dori bangage
AAOx3
Assessment and Plan
Labile BP
-Check orthostatics
-Will check AM denise to r/o AI, this is unlikely has he does not have any other features
Pancytopenia
-Known history of AML s/p bone marrow transplant, xdqgl-gkkiwr-wthm disease
-Thrombocytopenic, 19. Check peripheral smear.
-If actively bleeding transfuse platelets of less than 30,000
-Without active bleeding transfuse platelets of less than 10,000
-If hemoglobin less than 7 transfuse PRBC
-Hematology/oncology following
-Anemia, macrocytic/megaloblastic with hemoglobin 10.0, MCV 109.4. Check B12 folate
Diabetes
-A1c 7.2
-Sliding scale
-Accu-Cheks
-Goal blood glucose 140-180
-Carb controlled diet
Chronic Thompson
-Placed 3 weeks ago at [facility]
-Outpatient urology follow-up
Diarrhea
-3 episode, reported as loose
-CDiff negative start immodium
Wound care/Skin tears
-Plan: Vaseline gauze and dry dressing to arms and R knee. ABD pads under Dori wraps knee high to legs. Air chair cushion placed under intact heels to protect. Instructed patient to take air cushion home upon discharge to use when sitting. Patient
currently just purchased a donut type cushion, recommended not to use donut, air cushion more appropriate. - Per wound care
Anticipated Discharge: 24 - 48 hours
Subjective/Interval History
-
Date of Service: September 24, 2024
Seen and examined. No new complaints. No acute overnight events
States still gets a lot of anxiety and feels weak therefore headaches come back
Objective Data
-
Labs:
Laboratory Results
09/24/24 09/24/24
07:36 07:37
WBC 3.6 L
Hgb 8.8 L
Hct 26.5 L
Plt Count 23 L*
Sodium 138
Potassium 3.7
Chloride 99
Carbon Dioxide 28
BUN 23 H
Creatinine 0.6 L
Glucose 111 H
Calcium 8.7
Vital Signs:
Vital Signs
Temp Pulse Resp BP Pulse Ox
97.3 F 92 20 101/63 99
09/24/24 11:00 09/24/24 11:00 09/24/24 11:00 09/24/24 11:00 09/24/24 11:00
I&O
09/23/24 09/24/24 09/25/24
06:59 06:59 06:59
Intake Total 360 / 360
Output Total 1050 / 1050
Balance -690 / -690
[2024-09-24 15:30] VITALS: BP 109/70
[2024-09-24] MEDS: ZITHROMAX 250 MG PO (16:02)
[2024-09-24] MEDS: VITAMIN B-12 1000 MCG PO (16:02)
[2024-09-24] MEDS: BACTRIM DS 800 MG/160 MG 1 TABLET PO (16:02)
[2024-09-24 16:52] LABS: Glucose - Point of Care 214 mg/dl (70-99)
--- NOTE | 2024-09-24 17:34 | W.DCSUMMARY ---
Discharge Summary
Discharge Data
Date of Admission: 09/23/24
Date of Discharge: 09/24/24
-
Pending Results: No
Hospital Course
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
paresthetica presented with generalized weakness. Similar symptoms to previous admission for which she was in the hospital for approximately 2 weeks at that time with orthostatic hypotension. Again blood pressure are labile on the lower and
received IV fluids with improvement. Due to acuity and suspected hypotension peripheral edema being related to potential medications was transferred to [facility].
Discharge Plan
-
Patient Disposition: Acute Care Hospital
Condition: Fair
Discharge Orders:
Discharge Patient (As Directed); Ordered 09/24/24
Ordered By: Andrew Youngblood
Discharge Date and Time
Print Language: HAITIAN
[2024-09-24] MEDS: NOVOLOG FLEXPEN-LOW RESISTANCE 2 UNITS SC (17:49)
[2024-09-24 19:20] VITALS: BP 118/63
== END 2024-09-24 20:00 | disposition short-term general hospital (02) | DRG 312 ==
LOC: 3 WEST ACU 17:13
PROVIDERS: Student in an Organized Health Care Education/Training Program; ADMITTING PHYSICIAN Student in an Organized Health Care Education/Training Program; ATTENDING PHYSICIAN Hospitalist; EMERGENCY PHYSICIAN Emergency Medicine
DX: I95.1 Orthostatic hypotension (principal); C92.00 Acute myeloblastic leukemia, not having achieved remission; D61.818 Other pancytopenia; D89.811 Chronic graft-versus-host disease; E09.9 Drug or chemical induced diabetes mellitus without complications; I10 Essential (primary) hypertension; E78.00 Pure hypercholesterolemia, unspecified; J84.10 Pulmonary fibrosis, unspecified; G57.10 Meralgia paresthetica, unspecified lower limb; Z66 Do not resuscitate
CPT/HCPCS: 70450; 80048; 80053; 82962; 83735; 83880; 84484; 85025; 85027; 93005; 93970; 94640; 97163; 97167; 99285